=== PATIENT | female | born 1945 | race Caucasian/White ===

== ENCOUNTER 2018-07-11 22:25 | Emergency (ER) | payer OTHER ==
--- OUTSIDE RECORDS SUMMARY | 2018-07-11 22:27 | XMS REPORT | Clinical Summary ---
:1945 Author Organization [facility] Address [address] [place] [address] Care Team Providers Name Role Phone Isabelle Moe MD Primary Care Provider Allergies No Known Allergies Medications Medication Sig Dispensed Refills Start End Date Status Date carvedilol (COREG) 6.25 Take 6.25 mg 0 Active MG tablet by mouth 2 (two) times a day with meals. losartan-hydrochlorothi Take 1 tablet 0 Active azide (HYZAAR) 100-25 by mouth mg per tablet daily. gabapentin (NEURONTIN) Take 600 mg by 0 Active 600 mg tablet mouth 3 (three) times a day. atorvastatin (LIPITOR) Take 20 mg by 0 Active 20 MG tablet mouth daily. escitalopram (LEXAPRO) Take 10 mg by 0 Active 10 MG tablet mouth daily. tiZANidine (ZANAFLEX) 4 Take 4 mg by 0 Active MG tablet mouth nightly. fluticasone (FLONASE) 2 sprays by 0 Active 50 mcg/actuation nasal Each Nare spray route daily. ranitidine (ZANTAC) 150 Take 150 mg by 0 Active MG tablet mouth daily. cetirizine (ZyrTEC) 10 Take 10 mg by 0 Active MG tablet mouth daily. acetaminophen-codeine Take 1 tablet 0 Active (TYLENOL WITH CODEINE by mouth every #3) 300-30 mg per 4 (four) hours tablet as needed for moderate pain. multivitamin with Take 1 tablet 0 Active minerals tablet by mouth daily. ascorbic acid, vitamin Take 1,000 mg 0 Active C, (vitamin C) 1000 MG by mouth tablet daily. UNIFINE PENTIPS 31 USE 30 each Active gauge x 3/16" needle DIRECTED ONCE 8 DAILY teriparatide (FORTEO) Inject 0.08 mL 2.4 mL 01/24/20 20 mcg/dose - 600 (20 mcg total) 7 18 mcg/2.4 mL injection under the skin daily. pen needle, diabetic 30 Units 30 each 02/03/20 Discontinued (UNIFINE PENTIPS) 31 daily. 7 18 gauge x 3/16" needle methylPREDNISolone follow package 21 tablet 0 07/21/20 (MEDROL, ADI,) 4 mg directions 7 17 tablet Hospital, Clinic, or Other Ordered Dose Route Frequency Start Date End Date Status Facility Administered Medication methylPREDNISolone acetate 40 mg IM once 10/31/2016 Active (DEPO-MEDROL) injection 40 mgIndications: Complete tear of right rotator cuff keTOROlac (TORadol) 60 mg IM once 07/15/2017 07/17/2017 Ended injection 60 mgIndications: Spondylolisthesis at L1-L2 level, Displacement of lumbar intervertebral disc without myelopathy, Degeneration of lumbar intervertebral disc Active Problems Problem Noted Date Bilateral carotid bruits 05/12/2018 SOB (shortness of breath) 05/12/2018 Pre-op exam 05/12/2018 Essential hypertension 05/12/2018 Encounters Date Type Specialty Care Team Description 05/12/2018 Office Visit Cardiology Marleny Muñoz Bilateral carotid bruits ( Primary Dx); MD Jose Essential hypertension; SOB (shortness of breath); Pre-op exam 04/21/2018 Hospital Radiology Benjamin Paulson Encounter MD Dereje 03/31/2018 Office Visit Orthopedic Surgery Rinku Ochoa Bilateral hand pain MD Ritu (Primary Dx) 03/17/2018 Office Visit Orthopedic Surgery Benjamin Paulson Cervical radiculopathy (Primary Dx); MD Dereje Cervical spine pain; Bilateral carpal tunnel syndrome; Cubital tunnel syndrome, bilateral 02/02/2018 Refill Orthopedic Surgery Genny Coats PA-C 11/05/2017 Office Visit Orthopedic Surgery Jorge L, Spondylolisthesis at L1 -L2 level (Primary Dx); Genny Rocha Lumbosacral radiculitis ELAINE 09/16/2017 Telephone Orthopedic Surgery Meghna Acosta MA 07/29/2017 Telephone Orthopedic Surgery Karla Meghna, MA 07/15/2017 Office Visit Orthopedic Surgery Jorge L, Spondylolisthesis at L1 -L2 level (Primary Dx); Genny Rocha, Displacement of lumbar intervertebral disc without myelopathy; PA-C Degeneration of lumbar intervertebral disc after 07/10/2017 Family History Medical History Relation Name Comments Cancer Father Emphysema Mother Heart disease Mother Cancer Other siblings Relation Name Status Comments Father Mother Other siblings Alive Other siblings Social History Tobacco Use Types Packs/Day Years Used Date Former Smoker Cigarettes Quit: 2012 Smokeless Tobacco: Never Used Alcohol Use Drinks/Week oz/Week Comments Yes occasional Sex Assigned at Date Recorded Not on file Job Start Date Occupation Industry Not on file Not on file Not on file Travel History Travel Start Travel End No recent travel history available. Last Filed Vital Signs Vital Sign Reading Time Taken Blood Pressure 138/65 05/12/2018 3:02 PM CDT Pulse 80 05/12/2018 3:02 PM CDT Temperature 36.9 C (98.5 F) 03/17/2018 3:03 PM CDT Respiratory Rate - - Oxygen Saturation - - Inhaled Oxygen Concentration - - Weight 71.7 kg (158 lb) 05/12/2018 3:02 PM CDT Height 160 cm (5' 3") 05/12/2018 3:02 PM CDT Body Mass Index 27.99 05/12/2018 3:02 PM CDT Plan of Treatment Health Maintenance Due Date Last Done Comments BREAST CANCER SCREENING 1994 COLON CANCER SCREENING 1994 SHINGRIX VACCINE (1 of 2) 1994 ZOSTER VACCINE 2004 INFLUENZA VACCINE 03/18/2018 04/30/2017, 04/22/2017 PNEUMOCOCCAL POLYSACCHARIDE VACCINE AGE 65 Completed 08/18/2009 AND OVER PNEUMOCOCCAL-13 Completed 08/18/2015 Procedures Procedure Name Priority Date/Time Associated Diagnosis Comments US CAROTID DUPLEX Routine 05/12/2018 5:17 Bilateral carotid Results for this BILATERAL PM CDT bruits procedure are in SOB (shortness of the results breath) section. Pre-op exam ECG 12-LEAD Routine 05/12/2018 2:02 Essential Results for this PM CDT hypertension procedure are in the results section. XR CERVICAL SPINE 2 Routine 03/17/2018 3:01 Cervical spine pain Results for this OR 3 VW PM CDT procedure are in the results section. MRI SPINE EXTERNAL Routine 02/10/2018 12:02 Results for this STUDY AM CDT procedure are in the results section. after 07/10/2017 Results Pv carotid duplex (05/12/2018 5:17 PM CDT) Narrative Performed At [facility] Carotid Artery Ultrasound Report Pat.Name:Allyson CARDENAS.ID:[id number] .Date: 05/12/2018 Refer.MD:MARLENY MUÑOZ MD Exam Time: 4:36:00 PMStudy Type:Carotid DOBAge:1945,72YSex: FEMALE Sonogrphr: Brice Lundberg RVTPat. Stat.:[facility] 4: [id number] Echo Event ID:[id number] Order ID:[id number] Reason for Study:New onset of bilateral carotid bruit. History of hypertension and hyperlipidemia. Procedures:Colorflow, Grayscale/2D, Pulsed wave Doppler Race:White SUMMARY: PHYSICAL ASSESSMENT BloodPulsesCarotid Pressure Carotid TemporalBruit Right 150/60 +++ Left 148/60 ++0 CAROTID ARTERY SCAN RIGHT:Laminating soft plaque throughout the common carotid artery extending into the bulb and proximal internal carotid artery. Calcified plaque at the ostium of the external carotid artery. Tortuous mid and distal internal carotid artery and proximal subclavian artery with turbulent Doppler signals.Antegrade vertebral arterial flow. LEFT:Laminating soft plaque throughout the common carotid artery. Soft on ulcerative calcified plaque in the bulb followed by calcified plaque in the proximal internal carotid artery.Antegrade vertebral arterial flow. PRELIMINARY FINDINGS Non-stenotic plaque in the right bulb followed by less than 50% stenosis in the proximal internal carotid artery. Tortuous right mid and distal internal carotid artery, and proximal subclavian artery with turbulent Doppler signals. Non-stenotic plaque in the left bulb and proximal internal carotid artery. Non-stenotic plaque in the common carotid artery and ostium of the right external carotid artery. PHYSICIAN INTERPRETATION Bilateral carotid arterial Duplex exam demonstrates mild bilateral carotid artery disease with <50% stenosis in the right internal carotid artery.Tortuosity of the right internal carotid artery and right subclavian artery with no evidence of significant obstruction at the kink of the arteries. Carotid Findings:RightLeft Verteb.Flw AntegradeAntegrade Subclavian TriphasicTriphasic MEASUREMENTS: DOPPLER Right CCA Dist CCA Dist PSV51.9 cm/sCCA Dist EDV13.1 cm/s Right CCA Mid CCA Mid PSV 54.7 cm/sCCA Mid EDV 11.2 cm/s Right CCA Prox CCA Prox PSV79.7 cm/sCCA Prox EDV10.1 cm/s Right Bulb Bulb PSV54.5 cm/sBulb EDV19.2 cm/s Right ECA Prox ECA Prox PSV24.4 cm/sECA Prox EDV5.83 cm/s ICA Prox ICA Prox PSV 102 cm/Dasia Prox EDV35.1 cm/s Right Vertebral Vertebral PSV 49 cm/sVertebral EDV 11.7 cm/s Right SCA Mid SCA Mid [id number] cm/sSCA Mid EDV0 cm/s Left CCA Dist CCA Dist PSV60.2 cm/sCCA Dist EDV14.1 cm/s Left CCA Mid CCA Mid PSV 49.5 cm/sCCA Mid EDV 9.56 cm/s Left CCA Prox CCA Prox PSV70.4 cm/sCCA Prox EDV10.4 cm/s Left Bulb Bulb PSV33.1 cm/sBulb EDV10 cm/s Left ECA Prox ECA Prox PSV54.5 cm/sECA Prox EDV5.45 cm/s ICA Dist ICA Dist PSV82.5 cm/Dasia Dist EDV26.3 cm/s Left ICA Prox ICA Prox PSV75.4 cm/Dasia Prox EDV24.5 cm/s Vertebral Vertebral PSV 55 cm/s SCA Mid SCA Mid PSV 95 cm/s Left SCA Mid SCA Mid EDV0 cm/s Right ICA Mid ICA Mid PSV 79.5 cm/Dasia Mid EDV 25.7 cm/s Right ICA Dist ICA Dist PSV88.2 cm/Dasia Dist EDV22.1 cm/s Right ICA/CCA Ratio ICA/CCA PSV 1.86 Left ICA/CCA Ratio ICA/CCA PSV 1.52 Left ICA Mid ICA Mid PSV 96.5 cm/Dasia Mid EDV 31 cm/s Signed 05/17/2018 10:28 AM Marleny Muñoz MD Procedure Note Interface, Radiology Results In - 05/17/2018 10:29 AM CDT [facility] Carotid Artery Ultrasound Report Pat.Name: MICHELLE CARDENAS Pat.ID: [id number] St.Date: 05/12/2018 Refer.MD: MARLENY MUÑOZ MD Exam Time: 4:36:00 PM Study Type:Carotid Age: 10 1945,72Y Sex: FEMALE Sonogrphr: Brice Lundberg RVT Pat. Stat.:Outpatient Room: [facility] Vol: Cn , CPT - 4: 08634 Echo Event ID:[id number] Order ID: [id number] Reason for Study:New onset of bilateral carotid bruit. History of hypertension and hyperlipidemia. Procedures:Colorflow, Grayscale/2D, Pulsed wave Doppler Race: White SUMMARY: PHYSICAL ASSESSMENT Blood Pulses Carotid Pressure Carotid Temporal Bruit Right 150/60 + + + Left 148/60 + + 0 CAROTID ARTERY SCAN RIGHT: Laminating soft plaque throughout the common carotid artery extending into the bulb and proximal internal carotid artery. Calcified plaque at the ostium of the external carotid artery. Tortuous mid and distal internal carotid artery and proximal subclavian artery with turbulent Doppler signals. Antegrade vertebral arterial flow. LEFT: Laminating soft plaque throughout the common carotid artery. Soft on ulcerative calcified plaque in the bulb followed by calcified plaque in the proximal internal carotid artery. Antegrade vertebral arterial flow. PRELIMINARY FINDINGS Non-stenotic plaque in the right bulb followed by less than 50% stenosis in the proximal internal carotid artery. Tortuous right mid and distal internal carotid artery, and proximal subclavian artery with turbulent Doppler signals. Non-stenotic plaque in the left bulb and proximal internal carotid artery. Non-stenotic plaque in the common carotid artery and ostium of the right external carotid artery. PHYSICIAN INTERPRETATION Bilateral carotid arterial Duplex exam demonstrates mild bilateral carotid artery disease with <50% stenosis in the right internal carotid artery. Tortuosity of the right internal carotid artery and right subclavian artery with no evidence of significant obstruction at the kink of the arteries. Carotid Findings: Right Left Verteb.Flw Antegrade Antegrade Subclavian Triphasic Triphasic MEASUREMENTS: DOPPLER Right CCA Dist CCA Dist PSV 51.9 cm/s CCA Dist EDV 13.1 cm/s Right CCA Mid CCA Mid PSV 54.7 cm/s CCA Mid EDV 11.2 cm/s Right CCA Prox CCA Prox PSV 79.7 cm/s CCA Prox EDV 10.1 cm/s Right Bulb Bulb PSV 54.5 cm/s Bulb EDV 19.2 cm/s Right ECA Prox ECA Prox PSV 24.4 cm/s ECA Prox EDV 5.83 cm/s ICA Prox ICA Prox PSV 102 cm/s ICA Prox EDV 35.1 cm/s Right Vertebral Vertebral PSV 49 cm/s Vertebral EDV 11.7 cm/s Right SCA Mid SCA Mid PSV 112 cm/s SCA Mid EDV 0 cm/s Left CCA Dist CCA Dist PSV 60.2 cm/s CCA Dist EDV 14.1 cm/s Left CCA Mid CCA Mid PSV 49.5 cm/s CCA Mid EDV 9.56 cm/s Left CCA Prox CCA Prox PSV 70.4 cm/s CCA Prox EDV 10.4 cm/s Left Bulb Bulb PSV 33.1 cm/s Bulb EDV 10 cm/s Left ECA Prox ECA Prox PSV 54.5 cm/s ECA Prox EDV 5.45 cm/s ICA Dist ICA Dist PSV 82.5 cm/s ICA Dist EDV 26.3 cm/s Left ICA Prox ICA Prox PSV 75.4 cm/s ICA Prox EDV 24.5 cm/s Vertebral Vertebral PSV 55 cm/s SCA Mid SCA Mid PSV 95 cm/s Left SCA Mid SCA Mid EDV 0 cm/s Right ICA Mid ICA Mid PSV 79.5 cm/s ICA Mid EDV 25.7 cm/s Right ICA Dist ICA Dist PSV 88.2 cm/s ICA Dist EDV 22.1 cm/s Right ICA/CCA Ratio ICA/CCA PSV 1.86 Left ICA/CCA Ratio ICA/CCA PSV 1.52 Left ICA Mid ICA Mid PSV 96.5 cm/s ICA Mid EDV 31 cm/s Signed 05/17/2018 10:28 AM Marleny Muñoz MD Performing Organization Address [facility]osticsak Phone Number [facility] [address] [place] [address] ECG 12 lead (05/12/2018 2:02 PM CDT) Ventricular rate 76 [facility] Atrial rate 76 [facility] W[place] interval 174 [facility] QRSD interval 80 [facility] QT interval 368 [facility] QTC interval 414 [facility] P axis 1 37 [facility] QRS axis 1 70 [facility] T wave axis 32 [facility] EKG impression Normal sinus rhythm-Normal ECG-In automated comparison with ECG of 17-DEC-2016 08:00,-Minimal criteria for Inferior infarct are no longer present-T wave inversion no longer evident in Inferior leads-Electronically Signed By Nick Fernandez MD ([id number]) on H MUSE 05/13/2018 2:38:07 AM Performing Organization Address [facility] Phone Number [facility] MUSE [address] [place] [address] XR Cervical Spine 2 Or 3 Vw (03/17/2018 3:01 PM CDT) Narrative Performed At AP and lateral x-rays of the cervical spine were reviewed.A 5 mm HM RADIANT spondylolisthesis is present at C5-6.Spondylosis is noted throughout the cervical spine from C3-C7.Narrowing of the disc space at C6-7 is present with a large anterior osteophyte.Some calcification of the anterior annulus is noted at C4-5 and spondylosis is present in all of the facets. There is preservation of normal lordosis in the upper cervical spine and straightening of the cervical lordosis at C6-7. Performing Organization Address City/[facility]/Zipcode Phone Number [facility] [address] [place] [address] MRI Spine External Study (02/10/2018 12:02 AM CDT) Narrative Performed At This exam was not acquired at a [facility] facility and has not been RADIANT interpreted by a [facility] Provider.The exam was imported into our imaging system for comparisons purposes. Performing Organization Address [facility] Phone Number [facility] [address] [place] [address] after 07/10/2017 Insurance Payer Benefit Plan / Group Subscriber ID Type Phone Address HU[employer]NA MEDICARE HU[employer]NA MEDICARE PPO/PFFS/[facility] xxxxxxxxx PPO Advance Directives Patient has advance care planning documents on file. For more information, please contact:Gilmer Coburn[address] [place] [address]
--- OUTSIDE RECORDS SUMMARY | 2018-07-11 22:27 | XMS REPORT | Summary of Care ---
:1945 Author Name NATY ARRIAGA Address Unavailable Unavailable , Care Team Providers Name Role Phone NATY ARRIAGA Unavailable Unavailable MARNI DOLL MD Unavailable Unavailable Unavailable Unavailable Unavailable Functional Status Name Dates Details Functional status health issues are not documented Status: Name Dates Details Cognitive status health issues are not documented Status: Problems Name Dates Details Closed nondisplaced fracture of right patella, unspecified fracture morphology , initial encounter (822.0, S82.001A) Status: Active Primary localized osteoarthritis of right knee (715.16, M17.11) Status: Active 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, initial encounter ( 996.66, T84.51XA) Status: Active Right shoulder tendonitis (726.10, M75.81) Status: Active Hip strain, right, initial encounter (843.9, S76.011A) Status: Active Hypertension (401.9, I10) Status: Active Hyperlipidemia (272.4, E78.5) Status: Active Degenerative disc disease (722.6) Status: Active GERD (gastroesophageal reflux disease) (530.81, K21.9) Status: Active Primary localized osteoarthritis of left knee (715.16, M17.12) Status: Active Medications Name Dates Details Coreg TABS Refills: 0 Active Cozaar TABS Refills: 0 Active Gabapentin TABS Refills: 0 Active Zanaflex CAPS Refills: 0 Active Lipitor TABS Refills: 0 Active Acetaminophen-Codeine #3 300-30 MG Oral Tablet TAKE 1 TO 2 TABLETS EVERY 4 TO 6 HOURS NEEDED FOR PAIN. Quantity: 60 Refills: 0 NATY ARRIAGA Start : 27-May-2018 Active Allergies and Adverse Reactions Name Dates Details No Known Drug Allergies (Allergy) Status: Active Past Medical History Name Dates Details History of essential hypertension (V12.59, Z86.79) Status: Resolved History of low back pain (V13.59, Z87.39) Status: Resolved History of Trochanteric bursitis of right hip (726.5, M70.61) Status: Resolved Procedures Procedure Dates Details GI Stomach UGI w/KUB air cont and Esophagus Ba swallow Date: 05-Jun-2018 51091 History of Cholecystectomy Completed History of Sinus Surgery Completed History of Appendectomy Completed Immunization Name Dates Details Immunizations not documented Family History Name Dates Details No pertinent family history (V49.89, Z78.9) Comments: Other Status: Active Social History Name Dates Details Unknown if ever smoked Vital Signs Date Test Result Details [id number] BP Systolic 129 mm[Hg] Status: BP Diastolic 75 mm[Hg] Status: Height 63.5 in Status: Weight 159 lb Status: Body Mass Index Calculated 27.72 kg/m2 Status: Body Surface Area Calculated 1.76 m2 Status: Temperature 98.3 f Status: Heart Rate 90 /min Status: Results Date Description Value Details [id number] [U] XRAY KNEE 3 VWS LEFT 26424 XR KNEE 3 VWS LEFT Images acquired, not reported on this accession number. Plan of Care Name Dates Details Planned Observations Planned Goals not documented Planned Encounters Appointment; NATY MARSHALL P.A. On: 30-Jul-2018 13:00 Interventions Provided Labs/Procedures/Imaging[U] XRAY KNEE 3 VWS LEFT 34400; Done: 02 Jul 2018PlanCompleted at Today's Appointment: Dressing Changes Patient Education/ Instructions: Patient/Parent to call or return with any abnormal changes NSAIDS and ICE application for continued pain and swelling. Orders: Continue therapy and pain meds as needed. Follow Up: Return to the clinic in 4 weeks or as needed. Xray's reviewed with Physician Instructions Name Dates Details Instructions not documented Encounters Appointment; MARGARITA OLIVEIRA M.D. On: 19-Sep-2016 14:00 Encounter Diagnosis: Problem not documented Appointment; NATY MARSHALL P.A. On: 17-Oct-2016 15:30 Encounter Diagnosis: Problem not documented Appointment; MARGARITA OLIVEIRA M.D. On: 13-Nov-2016 16:15 Encounter Diagnosis: Problem not documented Appointment; NATY MARSHALL P.A. On: 28-Nov-2016 13:15 Encounter Diagnosis: Problem not documented Appointment; NATY MARSHALL P.A. On: 18-Dec-2016 14:15 Encounter Diagnosis: Problem not documented Appointment; MARGARITA OLIVEIRA M.D. On: 12-Feb-2017 10:00 Encounter Diagnosis: Problem not documented Appointment; MARGARITA OLIVEIRA M.D. On: 14-Feb-2017 10:30 Encounter Diagnosis: Problem not documented Appointment; MARGARITA OLIVEIRA M.D. On: 26-Feb-2017 9:00 Encounter Diagnosis: Problem not documented Appointment; MARGARITA OLIVEIRA M.D. On: 20-Mar-2017 14:30 Encounter Diagnosis: Problem not documented Appointment; MARGARITA OLIVEIRA M.D. On: 28-Apr-2017 8:00 Encounter Diagnosis: Problem not documented Appointment; NATY MARSHALL P.A. On: 02-May-2017 10:00 Encounter Diagnosis: Problem not documented Appointment; NATY MARSHALL P.A. On: 09-May-2017 10:45 Encounter Diagnosis: Problem not documented Appointment; NATY MARSHALL P.A. On: 23-May-2017 10:45 Encounter Diagnosis: Problem not documented Appointment; ANGELICA CEVALLOS M.D. On: 27-May-2017 11:15 Encounter Diagnosis: Problem not documented Appointment; MARGARITA OLIVEIRA M.D. On: 04-Jun-2017 11:00 Encounter Diagnosis: Problem not documented Appointment; MARGARITA OLIVEIRA M.D. On: 18-Jul-2017 11:15 Encounter Diagnosis: Problem not documented Appointment; MARGARITA OLIVEIRA M.D. On: 12-Sep-2017 10:15 Encounter Diagnosis: Problem not documented Appointment; MARGARITA OLIVEIRA M.D. On: 17-Sep-2017 13:30 Encounter Diagnosis: Problem not documented Appointment; MARGARITA OLIVEIRA M.D. On: 17-Apr-2018 11:15 Encounter Diagnosis: Problem not documented Appointment; NATY MARSHALL P.A. On: 22-Apr-2018 13:15 Encounter Diagnosis: Problem not documented Appointment; NATY MARSHALL P.A. On: 27-May-2018 13:15 Encounter Diagnosis: Problem not documented Appointment; PAUL CHOWDARY M.D. On: 05-Jun-2018 11:00 Encounter Diagnosis: Problem not documented Appointment; MARGARITA OLIVEIRA M.D. On: 22-Jun-2018 8:00 Encounter Diagnosis: Problem not documented Appointment; NATY MARSHALL P.A. On: 02-Jul-2018 13:30 Encounter Diagnosis: Problem not documented
--- OUTSIDE RECORDS SUMMARY | 2018-07-11 22:27 | XMS REPORT ---
:1945 [facility] Address [address] [place] [id number] Care Team Providers Name Role Phone Unavailable Unavailable Unavailable Problems This patient has no known problems. Allergies, Adverse Reactions, Alerts This patient has no known allergies or adverse reactions. Medications This patient has no known medications. Results Test Description Test Time Test Comments Text Results Atomic Results Result Comments CR - XRAY CONSULTATION 2018-02-10 13:44:01 PAIN MANAGEMENT CONSULTATION PAIN MANAGEMENT HISTORY AND PHYSICALCHIEF COMPLAINT: Neck bilateral shoulder and arm pain with numbnessHISTORY OF PRESENT ILLNESS: The patient is 72-year-old retired female with a history of chronic neck pain. She has been seen in treated in both [facility] and [facility]. She has had physical therapy and steroid injections. The last steroid injection was approximally 2 years ago and significantly improved her pain until 2 months ago. Her pain is now affecting her activities of daily living and lifestyle. She describes her arm pain and numbness is worse than her neck pain. She frequently has numbness and tingling in her arms and hands. She describes as a burning electrical pain aggravated by forward neck flexion, such as with reading and looking down. Changes in position and ice partially relieve her pain. She does have popping and cracking in her neck with subjective weakness in both of her arms and hands. She has a sleep disturbance as a result of her pain. She has no bowel bladder incontinence, fever or chills.Past medical history includes hypertension, elevated cholesterol, gastroesophageal reflux diseaseIMAGING: Multilevel disc degeneration, spondylosis and disc osteophyte complexes resulting in cervical cord compression at C3-4, C4-5 and C5-6 levels. There is also multilevel facetal arthrosis with synovitis C4-5, C5-6 and C6-7 levels. Multilevel foraminal stenosis.PHYSICAL EXAMINATION : Female in no acute distress. Gait is intact. Cervical flexion limited 25 degrees at usual pain 15 degrees. Cervical extension limited by pain to 15 degrees. Lateral rotation limited by pain to 75 degrees to the right and 50 degrees to the left with usual pain at 65 degrees the right and 45 degrees to the left. Right lateral flexion limited to 10 degrees and left lateral flexion limited 10 degrees with usual pain at end range of motion. The patient has moderate to severe pain on palpation over both C4-5 C5-6 and C6-7 facets with associated muscle spasm. No significant pain involving upper cervical facets or suboccipital region/greater occipital nerve. Spurlings test is positive bilaterally. Sensation is intact to light touch C4-T1 dermatomes. Strength is 5/5 throughout both upper extremities. Biceps reflexes are 2+ symmetric. Triceps reflexes are 2+ and symmetric. Brachial radialis reflexes are 2+ and symmetric.IMPRESSION: 1. Cervical disc degeneration, cervical spondylosis, cervical stenosis, cervical cord compression.2. The patient s primary symptoms are related to cervical cord compression and cervical spondylosis/facet arthropathy. I will proceed with bilateral C5-6 trans foraminal epidural steroid injection to cover C3-4, C4-5 and C5-6 levels. The patient has incomplete relief I will proceed with diagnostic/therapeutic bilateral C4-5 through C6-7 facet blocks. Patient will be reevaluated.D
[2018-07-11] MEDS ORDERED: NA CHLORIDE 0.9% 1,000 ML ONE (22:55)
[2018-07-11 23:05] LABS: Protime INR 1.03
[2018-07-11 23:06] LABS: Absolute Lymphocytes (CBC) 0.9 K/uL (0.7-4.9); Absolute Monocytes 0.5 K/uL (0.1-1.3); Absolute Neutrophil 2.3 K/uL (1.8-8.0); Basophils % 4.7 % (0-1.3); Eosinophils % 10.2 % (0-4.4); Lymphocytes % 20.9 % (15.3-44.8); MCH 31.2 pg (27.0-35.0); MCV 97.9 fL (80-100); MPV 7.7 fL (7.6-11.3); Monocytes % 10.9 % (3.3-12.3); RBC Red Blood Cell Count 1.69 M/uL (3.86-4.86)
[2018-07-11 23:18] LABS: Hematocrit 16.5 % (36.0-45.0)
[2018-07-11 23:31] LABS: ALT/SGPT 13 U/L (12-78); AST/SGOT 17 U/L (15-37); Albumin 2.6 g/dL (3.4-5.0); Alkaline Phosphatase 69 U/L (45-117); BUN Blood Urea Nitrogen 20 mg/dL (7-18); Bicarbonate 27 mmol/L (21-32); Bilirubin Direct < 0.1 mg/dL (0-0.2); Bilirubin Total 0.2 mg/dL (0.2-1.0); Glucose Level 113 mg/dL (74-106); Magnesium 1.8 mg/dL (1.8-2.4); NT PRO-BNP 565 pg/mL (<125); Potassium 3.3 mmol/L (3.5-5.1); Protein, Total 5.5 g/dL (6.4-8.2); Sodium Level 140 mmol/L (136-145); Troponin (Emerg Dept Use Only) < 0.02 ng/mL (0.0-0.045)
--- NOTE | 2018-07-12 00:31 | EDPHYS ---
Physician Documentation [facility] Name: Radha Cardenas Age: 73 yrs Sex: Female : 1945 Arrival Date: 07/11/2018 Time: 22:29 Bed 2 Private MD: ED Physician Shekhar Beck HPI: 07/11 22:34 This 73 yrs old Female presents to ER via EMS with complaints of Blood ma2 Pressure Problem. 22:34 Onset: The symptoms/episode began/occurred suddenly, 1 day(s) ago. Onset: The ma2 symptoms/episode began/occurred suddenly, gradually, 1 day(s) ago. Associated signs and symptoms: Pertinent negatives: nausea and vomiting, chest pain. Severity of symptoms: At their worst the symptoms were moderate in the emergency department the symptoms have resolved have improved. started on labetelol for HTN was found to be hypotensive to 60/30 1 hour ago improved here to 105/60 no symptoms right now . Historical: - Allergies: 22:37 No Known Allergies; lp1 - Home Meds: 22:37 Coreg Oral [Active]; losartan oral oral [Active]; gabapentin oral oral [Active]; Zantac lp1 Oral [Active]; Claritin Oral [Active]; Lexapro Oral [Active]; Tylenol #3 Oral [Active]; Labetalol Oral [Active]; - PMHx: 22:37 Hypertension; Depression; Hyperlipidemia; Anemia; Osteoporosis; GERD; lp1 - PSHx: 22:37 L Knee replacement- 06/20/18; hip surgery; Appendectomy; Cholecystectomy; Knee surgery; lp1 - Immunization history:: Adult Immunizations up to date. - Social history:: Patient/guardian denies using alcohol, street drugs, The patient lives with family, Smoking status: Patient uses tobacco products, denies chronic smoking, but will smoke occasionally. - Family history:: not pertinent. - Ebola Screening: : No symptoms or risks identified at this time. ROS: 22:34 Constitutional: Negative for fever, chills, and weight loss, Cardiovascular: Negative ma2 for chest pain, palpitations, and edema, Respiratory: Negative for shortness of breath, cough, wheezing, and pleuritic chest pain, Abdomen/GI: Negative for abdominal pain, nausea, diarrhea, and constipation, : Negative for injury, bleeding, discharge, and swelling, Skin: Negative for injury, rash, and discoloration, Endocrine: Negative for neck swelling, polydipsia, polyuria, polyphagia, and marked weight changes. 22:34 Cardiovascular: Positive for low bp, Negative for edema, palpitations. 22:34 Cardiovascular: Positive for Negative for 22:34 All other systems are negative. Exam: 22:34 Constitutional: This is a well developed, well nourished patient who is awake, alert, ma2 and in no acute distress. Head/Face: Normocephalic, atraumatic. Chest/axilla: Normal chest wall appearance and motion. Nontender with no deformity. No lesions are appreciated. Cardiovascular: Regular rate and rhythm with a normal S1 and S2. No gallops, murmurs, or rubs. Normal PMI, no JVD. No pulse deficits. Respiratory: Lungs have equal breath sounds bilaterally, clear to auscultation and percussion. No rales, rhonchi or wheezes noted. No increased work of breathing, no retractions or nasal flaring. Abdomen/GI: Soft, non-tender, with normal bowel sounds. No distension or tympany. No guarding or rebound. No evidence of tenderness throughout. MS/ Extremity: Pulses equal, no cyanosis. Neurovascular intact. Full, normal range of motion. Neuro: Awake and alert, GCS 15, oriented to person, place, time, and situation. Cranial nerves II-XII grossly intact. Motor strength 5/5 in all extremities. Sensory grossly intact. Cerebellar exam normal. Normal gait. Vital Signs: 22:33 BP 103 / 48; Pulse 68; Resp 15; Temp 98(O); Pulse Ox 97% on R/A; Weight 71.67 kg; lp1 Height 5 ft. 4 in. (162.56 cm); Pain 3/10; 22:53 BP 91 / 52; Pulse 59; Resp 16; Pulse Ox 95% on R/A; lp1 23:15 BP 103 / 46; Pulse 62; Resp 16; Pulse Ox 96% on R/A; lp1 23:40 BP 109 / 46; Pulse 62; Resp 13; Pulse Ox 96% on R/A; lp1 07/12 00:00 BP 92 / 70; Pulse 69; Resp 16; Pulse Ox 99% on R/A; lp1 01:00 BP 108 / 41; Pulse 63; Resp 13; Pulse Ox 95% on R/A; lp1 01:40 BP 99 / 41; Pulse 60; Resp 14; Pulse Ox 95% on R/A; lp1 02:00 lp1 03:00 BP 119 / 50; Pulse 61; Resp 14; Temp 97.2(TE); Pulse Ox 96% on R/A; lp1 07/11 22:33 Body Mass Index 27.12 (71.67 kg, 162.56 cm) lp1 02:00 See Blood Transfusion flowsheet for further vitals lp1 MDM: 07/11 22:34 Differential Diagnosis sepsis, bb overdose, unlikely sepsis or sirs. ma2 22:38 Patient medically screened. ma2 07/12 00:24 Data reviewed: vital signs, nurses notes, lab test result(s), radiologic studies, and ma2 as a result, I will. Counseling: I had a detailed discussion with the patient and/or guardian regarding: the historical points, exam findings, and any diagnostic results supporting the discharge/admit diagnosis, the presence of at least one elevated blood pressure reading (>120/80) during this emergency department visit, radiology results, the need for outpatient follow up, the need to transfer to another facility. ED course: hb is 5, will transfuse pRBC, has had melena x 3 days.. hemodynamically stale now.. will initiate transfer for higher level of care as no GI available in our hospital . 07/11 22:33 Order name: Basic Metabolic Panel; Complete Time: 23:41 [facility] 07/11 22:33 Order name: CBC with Diff; Complete Time: 23:41 [facility] 07/11 22:33 Order name: LFT's; Complete Time: 23:41 wi2 07/11 22:33 Order name: Magnesium; Complete Time: 23:41 [facility] 07/11 22:33 Order name: NT PRO-BNP; Complete Time: 23:41 [facility] 07/11 22:33 Order name: PT-INR; Complete Time: 23:41 [facility] 07/11 22:33 Order name: Troponin (emerg Dept Use Only); Complete Time: 23:41 [facility] 07/11 22:33 Order name: XRAY Chest (1 view) [facility] 07/11 23:29 Order name: Type And Screen [facility] 07/11 23:29 Order name: Type and Screen [facility] 07/12 00:53 Order name: Packed RBC Leukored -1 ED[facility] 07/12 01:06 Order name: ABO/RH no charge; Complete Time: 01:27 [facility] 07/12 02:43 Order name: Urine Dipstick--Ancillary (enter results) lp1 07/11 22:33 Order name: EKG; Complete Time: 22:34 ma2 07/11 22:33 Order name: Cardiac monitoring; Complete Time: 22:44 ma2 07/11 22:33 Order name: EKG - Nurse/Tech; Complete Time: 22:44 ma2 07/11 22:33 Order name: IV Saline Lock; Complete Time: 22:44 ma2 07/11 22:33 Order name: Labs collected and sent; Complete Time: 22:45 ma2 07/11 22:33 Order name: O2 Per Protocol; Complete Time: 22:45 ma2 07/11 22:33 Order name: O2 Sat Monitoring; Complete Time: 22:45 ma2 07/11 22:37 Order name: Urine Dipstick-Ancillary (obtain specimen); Complete Time: 02:43 ma2 Administered Medications: 07/11 22:53 Drug: NS 0.9% 1000 ml Route: IV; Rate: 1 bolus; Site: right forearm; lp1 07/12 00:20 Follow up: IV Status: Completed infusion; IV Intake: 1000ml lp1 00:46 Drug: Pantoprazole 8 mg/hr Route: IV; Rate: 25 ml/hr; Site: right forearm; lp1 03:23 Follow up: IV Status: Infusion continued upon transfer lp1 00:46 Drug: Pantoprazole 40 mg Route: IVP; Site: right forearm; lp1 01:47 Follow up: Response: No adverse reaction lp1 Disposition: 07/12/18 00:30 Transfer ordered to [facility]. Diagnosis is Acute gastric ulcer with hemorrhage. - Reason for transfer: Higher level of care. - Accepting physician is [facility]. - Condition is Critical. - Problem is new. - Symptoms have improved. Signatures: Dispatcher [employer] EDLA Janeen Hernandez RN RN lp1 Shekhar Beck MD MD ma2 Corrections: (The following items were deleted from the chart) :58 01:58 Abnormal. ma2 ma2 03:24 00:30 07/12/2018 00:30 Transfer ordered to [facility]. lp1 Diagnosis is Acute gastric ulcer with hemorrhage. Reason for transfer: Higher level of care. Accepting physician is [facility] center. Condition is Critical. Problem is new. Symptoms have improved. ma2
--- NOTE | 2018-07-12 00:31 | ER ---
Nurse's Notes [facility] Name: Radha Cardenas Age: 73 yrs Sex: Female : 1945 Arrival Date: 07/11/2018 Time: 22:29 Bed 2 Private MD: Diagnosis: Acute gastric ulcer with hemorrhage Presentation: 07/11 22:29 Presenting complaint: EMS states: Called for patient who passed out at home, no trauma, lp1 caught by granddaughter; States starting Labetalol home med tonight after discontinuing med on 06/20/18 for L knee replacement; BP of 68/32 per EMS, improved after 400ml of NS. Transition of care: patient was not received from another setting of care. Onset of symptoms was July 11, 2018. Risk Assessment: Do you want to hurt yourself or someone else? Patient reports no desire to harm self or others. Initial Sepsis Screen: Does the patient meet any 2 criteria? No. Patient's initial sepsis screen is negative. Does the patient have a suspected source of infection? No. Patient's initial sepsis screen is negative. Care prior to arrival: IV initiated. 18 GA, in the right forearm, Glucose check: 112 Oxygen administered. via nasal cannula. 22:29 Method Of Arrival: EMS: [facility] lp1 22:29 Acuity: SLOAN 3 lp1 Historical: - Allergies: 22:37 No Known Allergies; lp1 - Home Meds: 22:37 Coreg Oral [Active]; losartan oral oral [Active]; gabapentin oral oral [Active]; Zantac lp1 Oral [Active]; Claritin Oral [Active]; Lexapro Oral [Active]; Tylenol #3 Oral [Active]; Labetalol Oral [Active]; - PMHx: 22:37 Hypertension; Depression; Hyperlipidemia; Anemia; Osteoporosis; GERD; lp1 - PSHx: 22:37 L Knee replacement- 06/20/18; hip surgery; Appendectomy; Cholecystectomy; Knee surgery; lp1 - Immunization history:: Adult Immunizations up to date. - Social history:: Patient/guardian denies using alcohol, street drugs, The patient lives with family, Smoking status: Patient uses tobacco products, denies chronic smoking, but will smoke occasionally. - Family history:: not pertinent. - Ebola Screening: : No symptoms or risks identified at this time. Screenin:37 Abuse screen: Denies threats or abuse. Denies injuries from another. Nutritional lp1 screening: No deficits noted. Tuberculosis screening: No symptoms or risk factors identified. Fall Risk Total Law Fall Scale indicates High Risk Score (45 or more points). Fall prevention measures have been instituted. Side Rails Up X 2 Family Present and informed to notify staff if the need to leave the bedside As available patient and family educated on Fall Prevention Program and Strategies. Assessment: 22:54 General: Appears in no apparent distress. Behavior is appropriate for age. Pain: lp1 Complains of pain in left knee Pain currently is 4 out of 10 on a pain scale. Quality of pain is described as aching. Neuro: Level of Consciousness is awake, alert, obeys commands, Oriented to person, place, time, situation, Speech is normal, Pupils are PERRLA, Intact. Cardiovascular: Capillary refill < 3 seconds in bilateral fingers toes Patient's skin is warm and dry. Rhythm is sinus rhythm. Respiratory: Respiratory effort is even, unlabored, Respiratory pattern is regular, Breath sounds are clear bilaterally. GI: Abdomen is non-distended. : No signs and/or symptoms were reported regarding the genitourinary system. EENT: No signs and/or symptoms were reported regarding the EENT system. Derm: Skin is dry, Skin is pale, Steri-strips in place to left knee, intact. Musculoskeletal: Circulation, motion, and sensation intact. 23:53 Reassessment: Provider at bedside discussing care with patient and daughter. lp1 07/12 00:30 Reassessment: Patient appears in no apparent distress at this time. Patient and/or lp1 family updated on plan of care and expected duration. Pain level reassessed. Patient resting, eyes closed, respirations unlabored. 01:30 Reassessment: Assisted patient to bedpan at this time; aware of pending blood lp1 transfusion, daughter at bedside. 02:00 Reassessment: 1st unit of PRBC infusing at this time. lp1 02:32 Reassessment: report called to SALVATORE Randolph at [facility] for patient transfer lp1 to [address] [place] [address] 22. 03:22 Reassessment: [facility] at bedside for transfer; Unit of PRBC completed. lp1 Vital Signs: 07/11 22:33 BP 103 / 48; Pulse 68; Resp 15; Temp 98(O); Pulse Ox 97% on R/A; Weight 71.67 kg; lp1 Height 5 ft. 4 in. (162.56 cm); Pain 3/10; 22:53 BP 91 / 52; Pulse 59; Resp 16; Pulse Ox 95% on R/A; lp1 23:15 BP 103 / 46; Pulse 62; Resp 16; Pulse Ox 96% on R/A; lp1 23:40 BP 109 / 46; Pulse 62; Resp 13; Pulse Ox 96% on R/A; lp1 07/12 00:00 BP 92 / 70; Pulse 69; Resp 16; Pulse Ox 99% on R/A; lp1 01:00 BP 108 / 41; Pulse 63; Resp 13; Pulse Ox 95% on R/A; lp1 01:40 BP 99 / 41; Pulse 60; Resp 14; Pulse Ox 95% on R/A; lp1 02:00 lp1 03:00 BP 119 / 50; Pulse 61; Resp 14; Temp 97.2(TE); Pulse Ox 96% on R/A; lp1 07/11 22:33 Body Mass Index 27.12 (71.67 kg, 162.56 cm) lp1 02:00 See Blood Transfusion flowsheet for further vitals lp1 ED Course: 07/11 22:29 Patient arrived in ED. tl2 22:29 Janeen Hernandez, RN is Primary Nurse. lp1 22:29 Maintain EMS IV. Dressing intact. Good blood return noted. Site clean \T\ dry. Gauge \T\ tl 2 site: 18 G R FA. 22:33 Shekhar Beck MD is Attending Physician. ma2 22:33 Triage completed. lp1 22:33 Arm band placed on left wrist. lp1 22:37 EKG done, by ED staff, reviewed by Shekhar Beck MD. lp1 22:37 Patient has correct armband on for positive identification. Bed in low position. Call lp1 light in reach. Side rails up X2. tie in machine operator on. Pulse ox on. NIBP on. 22:51 XRAY Chest (1 view) In Process Unspecified. EDMS 23:12 Basic Metabolic Panel Sent. ds4 23:12 CBC with Diff Sent. ds4 23:12 Troponin (emerg Dept Use Only) Sent. ds4 23:12 LFT's Sent. ds4 23:12 Magnesium Sent. ds4 23:12 NT PRO-BNP Sent. ds4 23:12 PT-INR Sent. ds4 23:39 Type And Screen Sent. ds4 23:39 Type and Screen Sent. ds4 23:39 T\T\S collected, blood band applied to patient. ds4 07/12 01:50 No provider procedures requiring assistance completed. lp1 03:24 Patient transferred, IV remains in place. lp1 Administered Medications: 07/11 22:53 Drug: NS 0.9% 1000 ml Route: IV; Rate: 1 bolus; Site: right forearm; lp1 07/12 00:20 Follow up: IV Status: Completed infusion; IV Intake: 1000ml lp1 00:46 Drug: Pantoprazole 8 mg/hr Route: IV; Rate: 25 ml/hr; Site: right forearm; lp1 03:23 Follow up: IV Status: Infusion continued upon transfer lp1 00:46 Drug: Pantoprazole 40 mg Route: IVP; Site: right forearm; lp1 01:47 Follow up: Response: No adverse reaction lp1 Intake: 07/11 22:45 IV: 1000ml (IV Fluid); Total: 1000ml. lp1 07/12 00:20 IV: 1000ml; Total: 2000ml. lp1 03:23 IV: 270ml (Blood Products); Total: 2270ml. lp1 Outcome: 00:30 ER care complete, transfer ordered by . ma2 01:30 Instructed on the need for transfer. lp1 01:50 Condition: stable lp1 03:24 Transferred by ground EMS to [facility], Transfer form completed. lp1 X-rays sent w/ patient. 03:24 Patient left the ED. lp1 Signatures: Dispatcher [employer] EDMS Janeen Hernandez RN RN lp1 Efrain Crowder ds4 Sarah Rocha RN RN tl2 Shekhar Beck MD MD ma2
[2018-07-12] MEDS ORDERED: PANTOPRAZOLE 40 MG INJ ONE (00:39)
[2018-07-12] MEDS ORDERED: NA CHLORIDE 0.9% 250 ML ONE (00:39)
[2018-07-12] MEDS ORDERED: NA CHLORIDE 0.9% 500 ML ONE (01:48)
[2018-07-12 03:44] LABS: Urine Blood NEGATIVE (NEG); Urine Glucose NEGATIVE (NEG); Urine Protein NEGATIVE (NEG); Urine Specific Gravity 1.015 (1.005-1.030)
[2018-07-12 03:45] VITALS: BP 119/50; TEMP 97.2; O2SAT 96
--- NOTE | 2018-07-12 06:08 | EKG ---
Test Date: 2018-07-11 Test Time: 22:33:28 [employer]: YUE MEASUREMENT RESULTS: Intervals: Rate: 63 ND: 198 QRSD: 88 QT: 452 QTc: 462 [place]: P: 12 ND: 198 QRS: 31 T: 23 INTERPRETIVE STATEMENTS: Normal sinus rhythm Normal ECG Compared to ECG 05/24/2013 11:45:29 no significant change from previous ECG Electronically Signed On 07-12-18 06:08:13 CLARIFIER OPERATOR by Kadeem Arriaga
--- NOTE | 2018-07-12 14:04 | RAD REPORT ---
EXAM DESCRIPTION: RAD - Chest Single View - 07/11/2018 10:54 pm CLINICAL HISTORY: COUGH Chest pain. COMPARISON: Chest Pa And Lat (2 Views) dated 06/11/2018; CHEST SINGLE VIEW dated 04/10/2011 FINDINGS: Portable technique limits examination quality. The lungs are grossly clear. Prominent hiatal hernia is present. The heart is upper limit of normal i n size. No displaced fractures. IMPRESSION: No acute intrathoracic process suspected.
== END 2018-07-12 03:24 | disposition short-term general hospital (02) ==
LOC: ER 22:25
PROC: 30243N1 Transfusion of Nonautologous Red Blood Cells into Central Vein, Percutaneous Approach (ICD-10-PCS; principal; 2018-07-11)
DX: K25.0 Acute gastric ulcer with hemorrhage (principal); Z72.0 Tobacco use; I10 Essential (primary) hypertension; D64.9 Anemia, unspecified; E78.5 Hyperlipidemia, unspecified; K21.9 Gastro-esophageal reflux disease without esophagitis; M81.0 Age-related osteoporosis without current pathological fracture; F32.9 Major depressive disorder, single episode, unspecified; Z79.899 Other long term (current) drug therapy
CPT/HCPCS: 36415; 36430; 71045; 80048; 80076; 81003; 83735; 83880; 84484; 85025; 85610; 86850; 86900; 86901; 93005; 96361; 96365; 96366; 99285; C9113; J7030; P9016

== ENCOUNTER 2023-02-05 09:50 | Emergency (ER) | payer OTHER ==
--- OUTSIDE RECORDS SUMMARY | 2023-02-05 10:03 | XMS REPORT | Continuity of Care Document ---
:1945 Author Organization [facility] t Address [address] [facility] [place] [address] Care Team Providers Name Role Phone Asked, No Pcp Primary Care Physician Unavailable Yoon Calloway Attending Clinician Unavailable [id number] Attending Clinician Unavailable Emily_T Attending Clinician Unavailable DEVYN Attending Clinician Unavailable Michael Attending Clinician Unavailable ANGELICA CEVALLOS M.D. Attending Clinician Unavailable CHAPARRITA DENT M.D. Attending Clinician Unavailable NATY MARSHALL P.A. Attending Clinician Unavailable NEVIN GAYLE Attending Clinician Unavailable MARGARITA OLIVEIRA M.D. Attending Clinician Unavailable PAUL CHOWDARY M.D. Attending Clinician Unavailable [id number] Admitting Clinician Unavailable Kvng-Willis_T Admitting Clinician Unavailable TY_[email or web address] Admitting Clinician Unavailable Milton_Ana Admitting Clinician Unavailable NEVIN GAYLE Admitting Clinician Unavailable Payers Payer Name Policy Type Policy Number Effective Date Expiration Date S ource [facility] [id number] [facility] [id number] (MEDICARE REPLACEMENT/ADVANT AGE - PPO) [facility] HealthSelect 1 [id number] 2021 Common TRS/ERS MCR PPO 00:00:00 Spirit - [facility] [employer] (MEDICARE [id number] REPLACEMENT/ADVANT AGE - PPO) Problems Condition Condition Condition Status Onset Resolution Last Treating Co mments Source Name Details Category Date Date Treatment Clinician Date Lumbago Lumbago Problem Active 2020-08 [place] with with 0-20 Family sciatica Sciatica 00:00: Practi c 00 e Chronic Chronic Problem Active [facility] kidney Kidney 2-05 Family disease Disease 00:00: Practic due to Due to 00 e hypertensi Hypertensi on on History of History of Problem Active [facility] deep vein Deep Vein 1-24 Fami ly thrombosis Thrombosis 00:00: Pr actic 00 e Small Small Disease Active [facility] bowel bowel 9-11 st obstructio obstructio 00:00: Ho spita n n 00 l Anemia Anemia Disease Active 2017-[address] [facility] Hiatal Hiatal Problem Active 2017-08 [facility] hernia Hernia 0-09 Family 00:00: Practic 00 e Bilateral Bilateral Disease Active [facility] carotid carotid 925 st bruits bruits 00:00: Hospita 00 l SOB SOB Disease Active [facility] (shortness (shortness 9-25 st of breath) of breath) 00:00: Ho spita 00 l Pre-op Pre-op Disease Active [facility] exam exam 9-25 st 00:00: Hospita 00 l Essential Essential Disease Active [facility] hypertensi hypertensi 9-25 st on on 00:00: Hospita 00 l Osteoporos Osteoporos Problem Active [facility] ill[facility] is is 9-05 Family 00:00: Practic 00 e [id number] Degenerati Problem Com mon ve disc Spirit disease at - [facility] L5-S1 St level [facility] [id number] Current Problem Common mild Spirit episode of - [facility] major [facility] depressive [facility] disorder Medical without Center prior episode [id number] Gastroesop Problem Co mmon hageal Spirit reflux - CHI disease St without [facility] esophagiti Medica l Center [id number] Age-relate Problem Com mon d Spirit osteoporos - [facility]I is without St current [facility] pathologic Medica l al Center fracture [id number] 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 [facility] [id number] Primary Problem Common insomnia [facility] [id number] AV block, Problem Com mon 1st degree [facility] [id number] Syncope Problem Commo n and [facility] collapse [facility] [id number] Irregularl Problem Co mmon y [facility] irregular - [facility] pulse [facility] [id number] Pain in Problem Comm on [id number] left [facility] shoulder [facility] [id number] Other Problem Common chronic [facility] pain [facility] [id number] Dizzy Problem Common spells [facility] [id number] BMI Problem Common 25.0-25.9, [facility] adult [facility] [id number] Neck pain Problem Comm on [facility] [id number] Generalize Problem Co mmon d [facility] abdominal - [facility] pain [facility] [id number] Diarrhea, Problem Comm on unspecifie Spirit d type [facility] Hypertensi Hypertensi Problem C ommon on on [facility] [id number] Preoperati Problem Com mon ve [facility] clearance [facility] [id number] Encounter Problem Com mon for Spirit pre-operat [facility] ines [facility] [id number] Iron Problem Common deficiency Spirit anemia, - CHI unspecifie [facility] iron [facility] deficiency Medica l anemia Center type Hyperlipid Hyperlipid Problem C ommon emia emia [facility] [id number] Exposure Problem Comm on to the flu [facility] History of History of Problem Resolve [facility] essential essential d Phys ici hypertensi hypertensi an s on on History of History of Problem Resolve UT low back low back d Physic i pain pain ans History of History of Problem Resolve UT Trochanter Trochanter d Ph ysici ic ic ans bursitis bursitis of right of right hip hip Closed Closed Problem Active UT nondisplac nondisplac Ph ysici ed ed ans fracture fracture of right of right patella, patella, unspecifie unspecifie d fracture d fracture morphology morphology , initial , initial encounter encounter Primary Primary Problem Active UT localized localized Phys ici osteoarthr osteoarthr an s itis of itis of right knee right knee Infection Infection Problem Active UT associated associated Ph ysici with with ans internal internal right hip right hip prosthesis prosthesis , initial , initial encounter encounter Right Right Problem Active [facility] shoulder shoulder Physic i tendonitis tendonitis an s Hip Hip Problem Active [facility] strain, strain, Physici right, right, ans initial initial encounter encounter Hypertensi Hypertensi Problem Active U T on on Physici ans Hyperlipid Hyperlipid Problem Active U T emia emia Physici ans GERD GERD Problem Active UT (gastroeso (gastroeso Ph ysici phageal phageal ans reflux reflux disease) disease) Primary Primary Problem Active [facility] localized localized Phys ici osteoarthr osteoarthr an s itis of itis of left knee left knee Strain of Strain of Problem Active UT right hip, right hip, Ph ysici sequela sequela ans Acute leg Acute leg Problem Active UT pain pain Physici ans Pain in Pain in Problem Active [facility] shoulder shoulder Physic i ans Osteoarthr Osteoarthr Problem Active [facility] itis of itis of Family knee Knee Practic e Hyperchole Hyperchole Problem Active [facility] sterolemia sterolemia Fa randy Practic e Depressive Depressive Problem Active [facility] disorder Disorder Family Practic e Bronchitis Bronchitis Problem Active [facility] Family Practic e Gastroesop Gastroesop Problem Active [facility] hageal hageal Family reflux Reflux Practic disease Disease e Gastritis Gastritis Problem Active [facility] e Arthritis Arthritis Problem Active [facility] e Shoulder Shoulder Problem Active [facility] pain Pain Family Practic e Degenerati Degenerati Problem Active [facility] on of on of Family lumbar Lumbar Practic interverte Interverte e bral disc bral Disc Degenerati Degenerati Problem Active [facility] on of on of Family interverte Interverte Pr actic bral disc bral Disc e Disorder Disorder Problem Active [place] [facility] of tendon of Tendon Fami ly of of Practic shoulder Shoulder e region Region Pain in Pain in Problem Active [facility] lower limb Lower Limb Fa randy Practic e Closed Closed Problem Active [place] fracture Fracture Family of patella of Patella Pr actic e Strain of Strain of Problem Active Radha danette flexor Flexor Family muscle of Muscle of Prac tic hip Hip e Prosthetic Prosthetic Problem Active [facility] joint Joint Family infection Infection Prac tic e Allergies, Adverse Reactions, Alerts This patient has no known allergies or adverse reactions. Family History Family Member Diagnosis Comments Start Date Stop Date Source Natural father Cancer [facility] Natural mother Emphysema [facility] Natural mother [facility] disease [facility] Other [facility] Hosp ital Social History Social Habit Start Date Stop Date Quantity Comments Source History of Tobacco Common Spirit - Use [facility] Gender identity [facility] Sexual orientation [facility] History of Social 2019-04-28 2019-04-[address] function 00:00:00 00:00:00 Hospital Alcohol intake 2018-07-13 2018-07-13 Current [facility]00 alcohol (finding) [facility] Alcohol Comment 2018-07-12 2018-07-[address] [facility] 00:00:00 00:00:00 [facility] Cigarettes smoked 2018-07-12 2018-07-12 [facility] current (pack per 00:00:00 00:00:00 Medical Center day) - Reported Cigarette 2018-07-12 2018-07-12 [facility] pack-years 00:00:00 00:00:00 [facility] Tobacco use and 2016-10-31 2016-10-31 Smokeless tobacco Me [facility] exposure 00:00:00 00:00:00 non-user Hospital Sex Assigned At [birth year] [facility]3] kezias 00:00:00 00:00:00 [facility] Smoking Status Start Date Stop Date Source Former Smoker 2022-06-27 00:00:00 2022-06-27 00:00:00 Common S pirit - [facility] Current Smoker 2022-03-15 00:00:00 Common Spiri t - [facility] Medications Ordered Filled Start Stop Current Ordering Indication Dosage Frequency Signature Comments Components Source Medication Medication Date Date Medication? Clinician (SIG) Name Name Ciprofloxac Ciprofloxac 2021- No 1{table BID Ciprofloxa in HCl 500 in HCl 500 05-06 t} tammy HCl MG MG 00:00: 00:00 500 MG 00 :00 traMADol traMADol 2021- No 1{table traMADol HCl 50 MG HCl 50 MG 04-30 t_as_ne HCl 50 MG 00:00: 00:00 eded} 00 :00 traMADol traMADol 2021- No 1{table traMADol HCl 50 MG HCl 50 MG 04-30 t_as_ne HCl 50 MG 00:00: 00:00 eded} 00 :00 traMADol traMADol 2021- No 1{table traMADol HCl 50 MG HCl 50 MG 04-30 t_as_ne HCl 50 MG 00:00: 00:00 eded} 00 :00 traMADol traMADol 2021- No 1{table traMADol HCl 50 MG HCl 50 MG 04-30 t_as_ne HCl 50 MG 00:00: 00:00 eded} 00 :00 traMADol traMADol 2021- No 1{table traMADol HCl 50 MG HCl 50 MG 04-30 t_as_ne HCl 50 MG 00:00: 00:00 eded} 00 :00 Cephalexin Cephalexin 2021- No 1{capsu BID Cephalexin 500 MG 500 MG 03-15 le} 500 MG 00:00: 00:00 00 :00 Ciprofloxac Ciprofloxac 2021- No 1{table BID Ciprofloxa in HCl 500 in HCl 500 12-21 t} tammy HCl MG MG 00:00: 00:00 500 MG 00 :00 carvedilol Yes 6.25mg Q.5D Take 6.25 [facility] (COREG) 9-[address] 6.25 MG 11:22: mouth 2 Hospita tablet 32 (two) l times a day with meals. losartan-hy Yes 1{tbl} QD Take 1 Me [facility] drochloroth 9-[address] iazide 11:22: mouth Hospita (HYZAAR) 32 daily. l 100-25 mg per tablet gabapentin Yes 600mg Q.[id number] Take 600 [facility] (NEURONTIN) 9-30 [id number] mg by s t 600 mg 11:22: 3D mouth 3 Hospita tablet 32 (three) l times a day. atorvastati Yes 20mg QD Take 20 mg [facility] n (LIPITOR) 9-[address] 20 MG 11:22: daily. Hospita tablet 32 l tiZANidine Yes 4mg QD Take 4 mg Me [facility] (ZANAFLEX) 9-[address] 4 MG tablet 11:22: nightly. Ho spita 32 l fluticasone 2019-0 Yes 2{spray QD 2 sprays [facility] (FLONASE) 9-30 } by Each st 50 11:22: Nare route Hospita mcg/actuati 32 daily. l on nasal spray ranitidine 2018-0 Yes 150mg QD Take 150 Me [facility] (ZANTAC) 9-[address] 150 MG 11:22: mouth Hospita tablet 32 daily. l cetirizine 0 Yes 10mg QD Take 10 mg M ethodi (ZyrTEC) 10 9-[address] MG tablet 11:22: daily. Hospit a 32 l acetaminoph 2018-0 Yes 1{tbl} Q4H Take 1 [facility] en-codeine 9-[address] (TYLENOL 11:22: mouth Hospita WITH 32 every 4 l CODEINE #3) (four) 300-30 mg hours as per tablet needed for moderate pain. multivitami 2018-0 Yes 1{tbl} QD Take 1 Me thodi n with 9-[address] minerals 11:22: mouth Hospita tablet 32 daily. l ascorbic 2018-0 Yes 1000mg QD Take 1,000 M ethodi acid, 9-[address] vitamin C, 11:22: mouth Hospit a (vitamin C) 32 daily. l 1000 MG tablet varenicline 0 Yes 1mg Q.5D Take 1 mg M ethodi (CHANTIX) 1 9-[address] mg tablet 11:22: (two) Hospita 32 times a l day. Take with full glass of water. pantoprazol 2018-0 Yes 40mg QD Take 40 mg Methodi e 9-[address] (PROTONIX) 11:22: daily. Hospi ta 40 MG EC 32 l tablet celecoxib 2018-0 Yes 200mg Q.5D Take 200 Met [facility] (CeleBREX) 9-[address] 200 MG 11:22: mouth 2 Hospita capsule 32 (two) l times a day. sertraline 2018-0 Yes 100mg QD Take 100 Me [facility] (ZOLOFT) 9-[address] 100 MG 11:22: mouth Hospita tablet 32 nightly. l traZODone 2018-0 Yes 50mg QD Take 50 mg Me thodi (DESYREL) 9-[address] 50 MG 11:22: nightly. Hospita tablet 32 l pantoprazol 2017-08 Yes 40mg QD Take [address] [facility] 1-28 tablet (40 [facility] (PROTONIX) 00:00: mg total) Me dical 40 MG 00 by mouth Center tablet daily. carvedilol 2017-08 Yes 6.25mg Q.5D Take 6.[address] (COREG) 1-27 mg by [facility] 6.25 MG 15:09: mouth 2 Medical tablet 02 (two) Center times daily. atorvastati 2017-08 Yes 20mg QD Take [address] n (LIPITOR) -27 by mouth Luke s 20 MG 15:09: nightly. Medical tablet 02 Center gabapentin 2017-08 Yes 1{tbl} Q.[id number] Take [address] (NEURONTIN) - [id number] tablet by [facility] 800 MG 15:09: 3D mouth 3 Medical tablet 02 (three) Center times daily. tiZANidine 2017-08 Yes 4mg QD Take [address] (ZANAFLEX) -27 by mouth [facility] 4 MG tablet 15:09: nightly. Me dical 02 Center apixaban 2017-08 Yes 5mg Q.5D Take [address] (ELIQUIS) 5 1-27 tablet (5 Donnie es mg Tab 00:00: mg total) Medica l tablet 00 by mouth 2 Center (two) times daily. Acetaminoph Acetaminoph 2017-08 Yes NATY 2 TAKE 1 TO UT en-Codeine en-Codeine 0-10 YOUNG P.A. 2 TABLETS Physici #3 300-30 #3 300-30 00:00: EVERY 4 TO ans MG Oral MG Oral 00 6 HOURS Tablet Tablet NEEDED FOR PAIN. acetaminoph 2017-08 Yes 1{tbl} Take [address] en-codeine 0-10 tablet by Luke s (TYLENOL 00:00: mouth Medical #3) 300-30 00 every 6 Center mg per (six) tablet hours as needed. UNIFINE Yes USE Methodi PENTIPS 31 6-[address] gauge x 00:00: ONCE DAILY Hosp matt 10/31" 00 l needle methylPREDN Yes [id number] 40mg M ethodi ISolone 3-16 st acetate 20:00: Hospita (DEPO-MEDRO 00 l L) injection 40 mg Aspirin 81 Aspirin 81 No 1{table QD Aspirin 81 MG MG t} MG Vitamin C Vitamin C No 1{table QD Vitamin C 100 MG 100 MG t} 100 MG Atorvastati Atorvastati No 1{table QD Atorvastat n Calcium n Calcium t} in Calcium 20 MG 20 MG 20 MG Metoprolol Metoprolol No 1{table QD Metoprolol Succinate Succinate t} Succinate ER 25 MG ER 25 MG ER 25 MG Zinc + Zinc + No Zinc + Vitamin C Vitamin C Vitamin C Losartan Losartan No 1{table QD Losartan Potassium-H Potassium-H t} Potassium- CTZ 100-25 CTZ 100-25 HCTZ MG MG 100-25 MG Gabapentin Gabapentin No 1{table TID Gabapentin 600 MG 600 MG t} 600 MG traZODone traZODone No 1{table QD traZODone HCl 50 MG HCl 50 MG t_at_be HCl 50 MG dtime} buPROPion buPROPion No 1{table QD buPROPion HCl ER (XL) HCl ER (XL) t_in_th HCl ER 150 MG 150 MG e_morni (XL) 150 ng} MG Sertraline Sertraline No 1{table QD Sertraline HCl 50 MG HCl 50 MG t} HCl 50 MG Iron 325 Iron 325 No 1{table QD Iron 325 (65 Fe) MG (65 Fe) MG t} (65 Fe) MG Gabapentin Gabapentin No 1{table TID Gabapentin 600 MG 600 MG t} 600 MG Magnesium Magnesium No 1{table Magnesium 30 MG 30 MG t_with_ 30 MG a_meal} Aspirin 81 Aspirin 81 No 1{table QD Aspirin 81 MG MG t} MG traZODone traZODone No 1{table QD traZODone HCl 50 MG HCl 50 MG t_at_be HCl 50 MG dtime} Iron 325 Iron 325 No 1{table QD Iron 325 (65 Fe) MG (65 Fe) MG t} (65 Fe) MG Losartan Losartan No 1{table QD Losartan Potassium-H Potassium-H t} Potassium- CTZ 100-25 CTZ 100-25 HCTZ MG MG 100-25 MG Sertraline Sertraline No 1{table QD Sertraline HCl 50 MG HCl 50 MG t} HCl 50 MG Vitamin C Vitamin C No 1{table QD Vitamin C 100 MG 100 MG t} 100 MG Potassium Potassium No 1{table Potassium 99 MG 99 MG t} 99 MG Atorvastati Atorvastati No 1{table QD Atorvastat n Calcium n Calcium t} in Calcium 20 MG 20 MG 20 MG Metoprolol Metoprolol No 1{table QD Metoprolol Succinate Succinate t} Succinate ER 25 MG ER 25 MG ER 25 MG Pantoprazol Pantoprazol No 1{table QD Pantoprazo e Sodium 40 e Sodium 40 t} le Sodium MG MG 40 MG Vitamin B Vitamin B No Vitamin B 12 12 12 Zinc + Zinc + No Zinc + Vitamin C Vitamin C Vitamin C buPROPion buPROPion No 1{table QD buPROPion HCl ER (XL) HCl ER (XL) t_in_th HCl ER 150 MG 150 MG e_morni (XL) 150 ng} MG Sertraline Sertraline No 1{table QD Sertraline HCl 50 MG HCl 50 MG t} HCl 50 MG traZODone traZODone No 1{table QD traZODone HCl 50 MG HCl 50 MG t_at_be HCl 50 MG dtime} Iron 325 Iron 325 No 1{table QD Iron 325 (65 Fe) MG (65 Fe) MG t} (65 Fe) MG Pantoprazol Pantoprazol No 1{table QD Pantoprazo e Sodium 40 e Sodium 40 t} le Sodium MG MG 40 MG Potassium Potassium No 1{table Potassium 99 MG 99 MG t} 99 MG Zinc + Zinc + No Zinc + Vitamin C Vitamin C Vitamin C Aspirin 81 Aspirin 81 No 1{table QD Aspirin 81 MG MG t} MG Magnesium Magnesium No 1{table Magnesium 30 MG 30 MG t_with_ 30 MG a_meal} buPROPion buPROPion No 1{table QD buPROPion HCl ER (XL) HCl ER (XL) t_in_th HCl ER 150 MG 150 MG e_morni (XL) 150 ng} MG Atorvastati Atorvastati No 1{table QD Atorvastat n Calcium n Calcium t} in Calcium 20 MG 20 MG 20 MG Vitamin B Vitamin B No Vitamin B 12 12 12 Losartan Losartan No 1{table QD Losartan Potassium-H Potassium-H t} Potassium- CTZ 100-25 CTZ 100-25 HCTZ MG MG 100-25 MG Vitamin C Vitamin C No 1{table QD Vitamin C 100 MG 100 MG t} 100 MG Metoprolol Metoprolol No 1{table QD Metoprolol Succinate Succinate t} Succinate ER 25 MG ER 25 MG ER 25 MG Coreg TABS Coreg TABS Yes M.A. [facility] Physici ans Gabapentin Gabapentin No 1{table TID Gabapentin 600 MG 600 MG t} 600 MG Sertraline Sertraline No 1{table QD Sertraline HCl 50 MG HCl 50 MG t} HCl 50 MG traZODone traZODone No 1{table QD traZODone HCl 50 MG HCl 50 MG t_at_be HCl 50 MG dtime} Iron 325 Iron 325 No 1{table QD Iron 325 (65 Fe) MG (65 Fe) MG t} (65 Fe) MG Potassium Potassium No 1{table Potassium 99 MG 99 MG t} 99 MG Aspirin 81 Aspirin 81 No 1{table QD Aspirin 81 MG MG t} MG Atorvastati Atorvastati No 1{table QD Atorvastat n Calcium n Calcium t} in Calcium 20 MG 20 MG 20 MG Vitamin C Vitamin C No 1{table QD Vitamin C 100 MG 100 MG t} 100 MG Magnesium Magnesium No 1{table Magnesium 30 MG 30 MG t_with_ 30 MG a_meal} Zinc + Zinc + No Zinc + Vitamin C Vitamin C Vitamin C Cozaar TABS Cozaar TABS Yes M.A. U T Physici ans buPROPion buPROPion No QD buPROPion HCl ER (XL) HCl ER (XL) HCl ER 150 MG 150 MG (XL) 150 MG Losartan Losartan No 1{table QD Losartan Potassium-H Potassium-H t} Potassium- CTZ 100-25 CTZ 100-25 HCTZ MG MG 100-25 MG Vitamin B Vitamin B No Vitamin B 12 12 12 Metoprolol Metoprolol No 1{table QD Metoprolol Succinate Succinate t} Succinate ER 25 MG ER 25 MG ER 25 MG Pantoprazol Pantoprazol No 1{table QD Pantoprazo e Sodium 40 e Sodium 40 t} le Sodium MG MG 40 MG Gabapentin Gabapentin No 1{table TID Gabapentin 600 MG 600 MG t} 600 MG Pantoprazol Pantoprazol No 1{table QD Pantoprazo e Sodium 40 e Sodium 40 t} le Sodium MG MG 40 MG Gabapentin Gabapentin No 1{table TID Gabapentin 600 MG 600 MG t} 600 MG Vitamin B Vitamin B No Vitamin B 12 12 12 Vitamin C Vitamin C No 1{table QD Vitamin C 100 MG 100 MG t} 100 MG Gabapentin Gabapentin Yes M.A. [facility] TABS TABS Physici ans Metoprolol Metoprolol No 1{table QD Metoprolol Succinate Succinate t} Succinate ER 25 MG ER 25 MG ER 25 MG Sertraline Sertraline No 1{table QD Sertraline HCl 50 MG HCl 50 MG t} HCl 50 MG Atorvastati Atorvastati No 1{table QD Atorvastat n Calcium n Calcium t} in Calcium 20 MG 20 MG 20 MG Iron 325 Iron 325 No 1{table QD Iron 325 (65 Fe) MG (65 Fe) MG t} (65 Fe) MG Zinc + Zinc + No Zinc + Vitamin C Vitamin C Vitamin C buPROPion buPROPion No QD buPROPion HCl ER (XL) HCl ER (XL) HCl ER 150 MG 150 MG (XL) 150 MG traZODone traZODone No 1{table QD traZODone HCl 50 MG HCl 50 MG t_at_be HCl 50 MG dtime} Losartan Losartan No 1{table QD Losartan Potassium-H Potassium-H t} Potassium- CTZ 100-25 CTZ 100-25 HCTZ MG MG 100-25 MG Aspirin 81 Aspirin 81 No 1{table QD Aspirin 81 MG MG t} MG Magnesium Magnesium No 1{table Magnesium 30 MG 30 MG t_with_ 30 MG a_meal} Zanaflex Zanaflex Yes M.A. [facility] CAPS CAPS Physici ans Potassium Potassium No 1{table Potassium 99 MG 99 MG t} 99 MG Magnesium Magnesium No 1{table Magnesium 30 MG 30 MG t_with_ 30 MG a_meal} Pantoprazol Pantoprazol No 1{table QD Pantoprazo e Sodium 40 e Sodium 40 t} le Sodium MG MG 40 MG Gabapentin Gabapentin No 1{table TID Gabapentin 600 MG 600 MG t} 600 MG Vitamin B Vitamin B No Vitamin B 12 12 12 Vitamin C Vitamin C No 1{table QD Vitamin C 100 MG 100 MG t} 100 MG Iron 325 Iron 325 No 1{table QD Iron 325 (65 Fe) MG (65 Fe) MG t} (65 Fe) MG Metoprolol Metoprolol No 1{table QD Metoprolol Succinate Succinate t} Succinate ER 25 MG ER 25 MG ER 25 MG Sertraline Sertraline No 1{table QD Sertraline HCl 50 MG HCl 50 MG t} HCl 50 MG Atorvastati Atorvastati No 1{table QD Atorvastat n Calcium n Calcium t} in Calcium 20 MG 20 MG 20 MG Lipitor Lipitor Yes M.A. [facility] TABS TABS Physici ans Iron 325 Iron 325 No 1{table QD Iron 325 (65 Fe) MG (65 Fe) MG t} (65 Fe) MG Zinc + Zinc + No Zinc + Vitamin C Vitamin C Vitamin C buPROPion buPROPion No QD buPROPion HCl ER (XL) HCl ER (XL) HCl ER 150 MG 150 MG (XL) 150 MG traZODone traZODone No 1{table QD traZODone HCl 50 MG HCl 50 MG t_at_be HCl 50 MG dtime} Losartan Losartan No 1{table QD Losartan Potassium-H Potassium-H t} Potassium- CTZ 100-25 CTZ 100-25 HCTZ MG MG 100-25 MG Aspirin 81 Aspirin 81 No 1{table QD Aspirin 81 MG MG t} MG Magnesium Magnesium No 1{table Magnesium 30 MG 30 MG t_with_ 30 MG a_meal} Gabapentin Gabapentin No 1{table TID Gabapentin 600 MG 600 MG t} 600 MG Potassium Potassium No 1{table Potassium 99 MG 99 MG t} 99 MG Potassium Potassium No 1{table Potassium 99 MG 99 MG t} 99 MG traZODone traZODone No 1{table QD traZODone HCl 50 MG HCl 50 MG t_at_be HCl 50 MG dtime} Vitamin B Vitamin B No Vitamin B 12 12 12 Metoprolol Metoprolol No 1{table QD Metoprolol Succinate Succinate t} Succinate ER 25 MG ER 25 MG ER 25 MG Sertraline Sertraline No 1{table QD Sertraline HCl 50 MG HCl 50 MG t} HCl 50 MG Vitamin C Vitamin C No 1{table QD Vitamin C 100 MG 100 MG t} 100 MG Aspirin 81 Aspirin 81 No 1{table QD Aspirin 81 MG MG t} MG Iron 325 Iron 325 No 1{table QD Iron 325 (65 Fe) MG (65 Fe) MG t} (65 Fe) MG Gabapentin Gabapentin No 1{table TID Gabapentin 600 MG 600 MG t} 600 MG Vitamin B Vitamin B No Vitamin B 12 12 12 Losartan Losartan No 1{table QD Losartan Potassium-H Potassium-H t} Potassium- CTZ 100-25 CTZ 100-25 HCTZ MG MG 100-25 MG Magnesium Magnesium No 1{table Magnesium 30 MG 30 MG t_with_ 30 MG a_meal} Atorvastati Atorvastati No 1{table QD Atorvastat n Calcium n Calcium t} in Calcium 20 MG 20 MG 20 MG Aspirin 81 Aspirin 81 No 1{table QD Aspirin 81 MG MG t} MG Pantoprazol Pantoprazol No 1{table QD Pantoprazo e Sodium 40 e Sodium 40 t} le Sodium MG MG 40 MG Zinc + Zinc + No Zinc + Vitamin C Vitamin C Vitamin C buPROPion buPROPion No QD buPROPion HCl ER (XL) HCl ER (XL) HCl ER 150 MG 150 MG (XL) 150 MG Potassium Potassium No 1{table Potassium 99 MG 99 MG t} 99 MG Potassium Potassium No 1{table Potassium 99 MG 99 MG t} 99 MG buPROPion buPROPion No QD buPROPion HCl ER (XL) HCl ER (XL) HCl ER 150 MG 150 MG (XL) 150 MG tiZANidine tiZANidine No tiZANidine HCl 4 MG HCl 4 MG HCl 4 MG Metoprolol Metoprolol No 1{table QD Metoprolol Succinate Succinate t} Succinate ER 25 MG ER 25 MG ER 25 MG Sertraline Sertraline No 1{table QD Sertraline HCl 50 MG HCl 50 MG t} HCl 50 MG Vitamin C Vitamin C No 1{table QD Vitamin C 100 MG 100 MG t} 100 MG Aspirin 81 Aspirin 81 No 1{table QD Aspirin 81 MG MG t} MG Gabapentin Gabapentin No 1{table TID Gabapentin 600 MG 600 MG t} 600 MG traZODone traZODone No 1{table QD traZODone HCl 50 MG HCl 50 MG t_at_be HCl 50 MG dtime} Vitamin B Vitamin B No Vitamin B 12 12 12 Atorvastati Atorvastati No 1{table QD Atorvastat n Calcium n Calcium t} in Calcium 20 MG 20 MG 20 MG Magnesium Magnesium No 1{table Magnesium 30 MG 30 MG t_with_ 30 MG a_meal} Iron 325 Iron 325 No 1{table QD Iron 325 (65 Fe) MG (65 Fe) MG t} (65 Fe) MG Pantoprazol Pantoprazol No 1{table QD Pantoprazo e Sodium 40 e Sodium 40 t} le Sodium MG MG 40 MG Zinc + Zinc + No Zinc + Vitamin C Vitamin C Vitamin C Losartan Losartan No 1{table QD Losartan Potassium-H Potassium-H t} Potassium- CTZ 100-25 CTZ 100-25 HCTZ MG MG 100-25 MG Vitamin C Vitamin C No 1{table QD Vitamin C 100 MG 100 MG t} 100 MG Pantoprazol Pantoprazol No 1{table QD Pantoprazo e Sodium 40 e Sodium 40 t} le Sodium MG MG 40 MG Metoprolol Metoprolol No 1{table QD Metoprolol Succinate Succinate t} Succinate ER 25 MG ER 25 MG ER 25 MG traZODone traZODone No 1{table QD traZODone HCl 50 MG HCl 50 MG t_at_be HCl 50 MG dtime} Sertraline Sertraline No 1{table QD Sertraline HCl 50 MG HCl 50 MG t} HCl 50 MG Atorvastati Atorvastati No 1{table QD Atorvastat n Calcium n Calcium t} in Calcium 20 MG 20 MG 20 MG buPROPion buPROPion No 1{table QD buPROPion HCl ER (XL) HCl ER (XL) t_in_th HCl ER 150 MG 150 MG e_morni (XL) 150 ng} MG Zinc + Zinc + No Zinc + Vitamin C Vitamin C Vitamin C Losartan Losartan No 1{table QD Losartan Potassium-H Potassium-H t} Potassium- CTZ 100-25 CTZ 100-25 HCTZ MG MG 100-25 MG amlodipine amlodipine No amlodipine [place] 5 mg tablet 5 mg tablet 5 mg F amily TAKE ONE TAKE ONE tablet Pract ic (1) (1) TAKE ONE e TABLET(S) TABLET(S) (1) BY MOUTH BY MOUTH TABLET(S) ONCE A DAY. ONCE A DAY. BY MOUTH ONCE A DAY. Vitamin B Vitamin B No Vitamin B 12 12 12 Magnesium Magnesium No 1{table Magnesium 30 MG 30 MG t_with_ 30 MG a_meal} atorvastati atorvastati No atorvastat [place] n 20 mg n 20 mg in 20 mg Famil y tablet TAKE tablet TAKE tablet Practic ONE (1) ONE (1) TAKE ONE e TABLET(S) TABLET(S) (1) BY MOUTH BY MOUTH TABLET(S) DAILY. DAILY. BY MOUTH DAILY. Pantoprazol Pantoprazol No 1{table QD Pantoprazo e Sodium 40 e Sodium 40 t} le Sodium MG MG 40 MG bupropion bupropion No bupropion [place] HCl XL 300 HCl XL 300 HCl XL 300 Family mg 24 hr mg 24 hr mg 24 hr Pra ctic tablet, tablet, tablet, e extended extended extended release release release TAKE ONE TAKE ONE TAKE ONE (1) (1) (1) TABLET(S) TABLET(S) TABLET(S) BY MOUTH BY MOUTH BY MOUTH ONCE A DAY. ONCE A DAY. ONCE A DAY. Potassium Potassium No 1{table Potassium 99 MG 99 MG t} 99 MG Coreg 25 mg Coreg 25 mg No Coreg 25 [place] tablet 1 tablet 1 mg tablet Fa randy tab twice tab twice 1 tab Prac tic daily daily twice e daily Aspirin 81 Aspirin 81 No 1{table QD Aspirin 81 MG MG t} MG Cozaar 100 Cozaar 100 No Cozaar 100 [place] mg tablet 1 mg tablet 1 mg tablet Family tab once tab once 1 tab once P ractic daily daily daily e Vitamin C Vitamin C No 1{table QD Vitamin C 100 MG 100 MG t} 100 MG Atorvastati Atorvastati No 1{table QD Atorvastat n Calcium n Calcium t} in Calcium 20 MG 20 MG 20 MG duloxetine duloxetine No 1capsul Q1D duloxetine [facility] 30 mg 30 mg e(s) 30 mg Family capsule,del capsule,del capsule,de Practic ayed ayed layed e release release release Take 1 Take 1 Take 1 capsule capsule capsule every day every day every day by oral by oral by oral route for route for route for 30 days. 30 days. 30 days. Metoprolol Metoprolol No 1{table QD Metoprolol Succinate Succinate t} Succinate ER 25 MG ER 25 MG ER 25 MG FeroSul 325 FeroSul 325 No FeroSul [place] mg (65 mg mg (65 mg 325 mg (65 Family iron) iron) mg iron) Practic tablet TAKE tablet TAKE tablet e ONE (1) ONE (1) TAKE ONE TABLET(S) TABLET(S) (1) BY MOUTH BY MOUTH TABLET(S) ONCE A DAY. ONCE A DAY. BY MOUTH ONCE A DAY. Zinc + Zinc + No Zinc + Vitamin C Vitamin C Vitamin C fluticasone fluticasone No 2spray( Q1D fluticason [place] propionate propionate s) e Fam [place] 50 50 propionate Practic mcg/actuati mcg/actuati 50 e on nasal on nasal mcg/actuat spray,suspe spray,suspe ion nasal nsion [place] nsion [place] spray,susp 2 sprays 2 sprays ension every day every day [place] 2 by by sprays intranasal intranasal every day route. prn route. prn by congestion congestion intranasal route. prn congestion Losartan Losartan No 1{table QD Losartan Potassium-H Potassium-H t} Potassium- CTZ 100-25 CTZ 100-25 HCTZ MG MG 100-25 MG gabapentin gabapentin No gabapentin [place] 600 mg 600 mg 600 mg Family tablet TAKE tablet TAKE tablet Practic 1 TABLET BY 1 TABLET BY TAKE 1 e MOUTH THREE MOUTH THREE TABLET BY TIMES DAILY TIMES DAILY MOUTH FOR 30 DAYS FOR 30 DAYS THREE TIMES DAILY FOR 30 DAYS Gabapentin Gabapentin No 1{table TID Gabapentin 600 MG 600 MG t} 600 MG ketorolac ketorolac No ketorolac [facility] 10 mg 10 mg 10 mg Family tablet TAKE tablet TAKE tablet Practic ONE (1) ONE (1) TAKE ONE e TABLET(S) TABLET(S) (1) BY MOUTH BY MOUTH TABLET(S) EVERY SIX EVERY SIX BY MOUTH HOURS HOURS EVERY SIX NEEDED FOR NEEDED FOR HOURS PAIN. PAIN. NEEDED FOR PAIN. traZODone traZODone No 1{table QD traZODone HCl 50 MG HCl 50 MG t_at_be HCl 50 MG dtime} buPROPion buPROPion No 1{table QD buPROPion HCl ER (XL) HCl ER (XL) t_in_th HCl ER 150 MG 150 MG e_morni (XL) 150 ng} MG Lipitor 80 Lipitor 80 No Lipitor 80 [place] mg tablet mg tablet mg tablet Family Practic e Sertraline Sertraline No 1{table QD Sertraline HCl 50 MG HCl 50 MG t} HCl 50 MG meloxicam meloxicam No meloxicam [facility] 7.5 mg 7.5 mg 7.5 mg Family tablet TAKE tablet TAKE tablet Practic ONE (1) ONE (1) TAKE ONE e TABLET(S) TABLET(S) (1) BY MOUTH BY MOUTH TABLET(S) ONCE A DAY ONCE A DAY BY MOUTH NEEDED. NEEDED. ONCE A DAY NEEDED. Iron 325 Iron 325 No 1{table QD Iron 325 (65 Fe) MG (65 Fe) MG t} (65 Fe) MG metoprolol metoprolol No metoprolol [facility] succinate succinate succinate Family ER 25 mg ER 25 mg ER 25 mg Pra ctic tablet,exte tablet,exte tablet,ext e nded nded ended release 24 release 24 release 24 hr TAKE ONE hr TAKE ONE hr TAKE (1) (1) ONE (1) TABLET(S) TABLET(S) TABLET(S) BY MOUTH BY MOUTH BY MOUTH ONCE A DAY. ONCE A DAY. ONCE A DAY. Sertraline Sertraline No 1{table QD Sertraline HCl 25 MG HCl 25 MG t} HCl 25 MG pantoprazol pantoprazol No pantoprazo [place] e 40 mg e 40 mg le 40 mg Famil y tablet,vj tablet,vj tablet,del Practic yed release yed release ayed e TAKE ONE TAKE ONE release (1) (1) TAKE ONE TABLET(S) TABLET(S) (1) BY MOUTH BY MOUTH TABLET(S) DAILY. DAILY. BY MOUTH DAILY. Pantoprazol Pantoprazol No 1{table QD Pantoprazo e Sodium 40 e Sodium 40 t} le Sodium MG MG 40 MG tizanidine tizanidine No tizanidine [place] 4 mg tablet 4 mg tablet 4 mg F amily TAKE ONE TAKE ONE tablet Pract ic (1) (1) TAKE ONE e TABLET(S) TABLET(S) (1) BY MOUTH BY MOUTH TABLET(S) ONCE A DAY ONCE A DAY BY MOUTH NEEDED. NEEDED. ONCE A DAY NEEDED. Gabapentin Gabapentin No 1{table TID Gabapentin 600 MG 600 MG t} 600 MG trazodone trazodone No trazodone [place] 50 mg 50 mg 50 mg Family tablet TAKE tablet TAKE tablet Practic ONE (1) ONE (1) TAKE ONE e TABLET(S) TABLET(S) (1) BY MOUTH AT BY MOUTH AT TABLET(S) BEDTIME. BEDTIME. BY MOUTH AT BEDTIME. traZODone traZODone No traZODone HCl 50 MG HCl 50 MG HCl 50 MG Zanaflex 6 Zanaflex 6 No Zanaflex 6 [place] mg capsule mg capsule mg capsule Family Practic e Atorvastati Atorvastati No Atorvastat n Calcium n Calcium in Calcium 20 MG 20 MG 20 MG amlodipine amlodipine No amlodipine [place] 5 mg tablet 5 mg tablet 5 mg F amily TAKE ONE TAKE ONE tablet Pract ic (1) (1) TAKE ONE e TABLET(S) TABLET(S) (1) BY MOUTH BY MOUTH TABLET(S) ONCE A DAY. ONCE A DAY. BY MOUTH ONCE A DAY. Aspirin 81 Aspirin 81 No 1{table QD Aspirin 81 MG MG t} MG Losartan Losartan No 1{table QD Losartan Potassium-H Potassium-H t} Potassium- CTZ 100-25 CTZ 100-25 HCTZ MG MG 100-25 MG atorvastati atorvastati No atorvastat [place] n 20 mg n 20 mg in 20 mg Famil y tablet TAKE tablet TAKE tablet Practic ONE (1) ONE (1) TAKE ONE e TABLET(S) TABLET(S) (1) BY MOUTH BY MOUTH TABLET(S) DAILY. DAILY. BY MOUTH DAILY. tiZANidine tiZANidine No tiZANidine HCl 4 MG HCl 4 MG HCl 4 MG bupropion bupropion No bupropion [place] HCl XL 300 HCl XL 300 HCl XL 300 Family mg 24 hr mg 24 hr mg 24 hr Pra ctic tablet, tablet, tablet, e extended extended extended release release release TAKE ONE TAKE ONE TAKE ONE (1) (1) (1) TABLET(S) TABLET(S) TABLET(S) BY MOUTH BY MOUTH BY MOUTH ONCE A DAY. ONCE A DAY. ONCE A DAY. buPROPion buPROPion No 1{table QD buPROPion HCl ER (XL) HCl ER (XL) t_in_th HCl ER 150 MG 150 MG e_morni (XL) 150 ng} MG ciprofloxac ciprofloxac No ciprofloxa [facility] in 500 mg in 500 mg tammy 500 mg Family tablet TAKE tablet TAKE tablet Practic ONE (1) ONE (1) TAKE ONE e TABLET(S) TABLET(S) (1) BY MOUTH BY MOUTH TABLET(S) EVERY EVERY BY MOUTH TWELVE TWELVE EVERY HOURS. HOURS. TWELVE HOURS. Vitamin C Vitamin C No 1{table QD Vitamin C 100 MG 100 MG t} 100 MG Coreg 25 mg Coreg 25 mg No Coreg 25 [place] tablet 1 tablet 1 mg tablet Fa randy tab twice tab twice 1 tab Prac tic daily daily twice e daily Metoprolol Metoprolol No Metoprolol Succinate Succinate Succinate ER 25 MG ER 25 MG ER 25 MG Cozaar 100 Cozaar 100 No Cozaar 100 [place] mg tablet 1 mg tablet 1 mg tablet Family tab once tab once 1 tab once P ractic daily daily daily e Iron 325 Iron 325 No 1{table QD Iron 325 (65 Fe) MG (65 Fe) MG t} (65 Fe) MG duloxetine duloxetine No duloxetine [place] 30 mg 30 mg 30 mg Family capsule,del capsule,del capsule,de Practic ayed ayed layed e release release release TAKE ONE TAKE ONE TAKE ONE (1) (1) (1) CAPSULE(S) CAPSULE(S) CAPSULE(S) BY MOUTH BY MOUTH BY MOUTH ONCE A DAY. ONCE A DAY. ONCE A DAY. Losartan Losartan No 1{table QD Losartan Potassium-H Potassium-H t} Potassium- CTZ 100-25 CTZ 100-25 HCTZ MG MG 100-25 MG FeroSul 325 FeroSul 325 No FeroSul [place] mg (65 mg mg (65 mg 325 mg (65 Family iron) iron) mg iron) Practic tablet TAKE tablet TAKE tablet e ONE (1) ONE (1) TAKE ONE TABLET(S) TABLET(S) (1) BY MOUTH BY MOUTH TABLET(S) ONCE A DAY. ONCE A DAY. BY MOUTH ONCE A DAY. Potassium Potassium No 1{table Potassium 99 MG 99 MG t} 99 MG Zinc + Zinc + No Zinc + Vitamin C Vitamin C Vitamin C fluticasone fluticasone No 2spray( Q1D fluticason [place] propionate propionate s) e Fam [place] 50 50 propionate Practic mcg/actuati mcg/actuati 50 e on nasal on nasal mcg/actuat spray,suspe spray,suspe ion nasal nsion [place] nsion [place] spray,susp 2 sprays 2 sprays ension every day every day [place] 2 by by sprays intranasal intranasal every day route. prn route. prn by congestion congestion intranasal route. prn congestion Vitamin B Vitamin B No Vitamin B 12 12 12 gabapentin gabapentin No gabapentin [facility] 600 mg 600 mg 600 mg Family tablet TAKE tablet TAKE tablet Practic ONE (1) ONE (1) TAKE ONE e TABLET(S) TABLET(S) (1) BY MOUTH BY MOUTH TABLET(S) THREE TIMES THREE TIMES BY MOUTH A DAY. A DAY. THREE TIMES A DAY. Aspirin 81 Aspirin 81 No 1{table QD Aspirin 81 MG MG t} MG ketorolac ketorolac No ketorolac [facility] 10 mg 10 mg 10 mg Family tablet TAKE tablet TAKE tablet Practic ONE (1) ONE (1) TAKE ONE e TABLET(S) TABLET(S) (1) BY MOUTH BY MOUTH TABLET(S) EVERY SIX EVERY SIX BY MOUTH HOURS HOURS EVERY SIX NEEDED FOR NEEDED FOR HOURS PAIN. PAIN. NEEDED FOR PAIN. Vitamin C Vitamin C No 1{table QD Vitamin C 100 MG 100 MG t} 100 MG Iron 325 Iron 325 No 1{table QD Iron 325 (65 Fe) MG (65 Fe) MG t} (65 Fe) MG Lipitor 80 Lipitor 80 No Lipitor 80 [place] mg tablet mg tablet mg tablet Family Practic e Sertraline Sertraline No 1{table QD Sertraline HCl 25 MG HCl 25 MG t} HCl 25 MG meloxicam meloxicam No meloxicam [facility] 7.5 mg 7.5 mg 7.5 mg Family tablet TAKE tablet TAKE tablet Practic ONE (1) ONE (1) TAKE ONE e TABLET(S) TABLET(S) (1) BY MOUTH BY MOUTH TABLET(S) ONCE A DAY ONCE A DAY BY MOUTH NEEDED. NEEDED. ONCE A DAY NEEDED. tiZANidine tiZANidine No tiZANidine HCl 4 MG HCl 4 MG HCl 4 MG methylpredn methylpredn No methylpred [facility] isolone 4 isolone 4 nisolone 4 Family mg tablets mg tablets mg tablets Practic in a dose in a dose in a dose e pack pack pack traZODone traZODone No traZODone HCl 50 MG HCl 50 MG HCl 50 MG metoprolol metoprolol No metoprolol [place] succinate succinate succinate Family ER 25 mg ER 25 mg ER 25 mg Pra ctic tablet,exte tablet,exte tablet,ext e nded nded ended release 24 release 24 release 24 hr TAKE ONE hr TAKE ONE hr TAKE (1) (1) ONE (1) TABLET(S) TABLET(S) TABLET(S) BY MOUTH BY MOUTH BY MOUTH ONCE A DAY. ONCE A DAY. ONCE A DAY. Gabapentin Gabapentin No 1{table TID Gabapentin 600 MG 600 MG t} 600 MG pantoprazol pantoprazol No pantoprazo [place] e 40 mg e 40 mg le 40 mg Famil y tablet,vj tablet,vj tablet,del Practic yed release yed release ayed e TAKE ONE TAKE ONE release (1) (1) TAKE ONE TABLET(S) TABLET(S) (1) BY MOUTH BY MOUTH TABLET(S) ONCE A DAY. ONCE A DAY. BY MOUTH ONCE A DAY. Metoprolol Metoprolol No Metoprolol Succinate Succinate Succinate ER 25 MG ER 25 MG ER 25 MG buPROPion buPROPion No 1{table QD buPROPion HCl ER (XL) HCl ER (XL) t_in_th HCl ER 150 MG 150 MG e_morni (XL) 150 ng} MG Atorvastati Atorvastati No Atorvastat n Calcium n Calcium in Calcium 20 MG 20 MG 20 MG Magnesium Magnesium No 1{table Magnesium 30 MG 30 MG t_with_ 30 MG a_meal} sertraline sertraline No sertraline [place] 50 mg 50 mg 50 mg Family tablet TAKE tablet TAKE tablet Practic ONE (1) ONE (1) TAKE ONE e TABLET(S) TABLET(S) (1) BY MOUTH BY MOUTH TABLET(S) DAILY. DAILY. BY MOUTH DAILY. Pantoprazol Pantoprazol No 1{table QD Pantoprazo e Sodium 40 e Sodium 40 t} le Sodium MG MG 40 MG Losartan Losartan No 1{table QD Losartan Potassium-H Potassium-H t} Potassium- CTZ 100-25 CTZ 100-25 HCTZ MG MG 100-25 MG tizanidine tizanidine No tizanidine [place] 4 mg tablet 4 mg tablet 4 mg F amily TAKE ONE TAKE ONE tablet Pract ic (1) (1) TAKE ONE e TABLET(S) TABLET(S) (1) BY MOUTH BY MOUTH TABLET(S) ONCE A DAY ONCE A DAY BY MOUTH NEEDED. NEEDED. ONCE A DAY NEEDED. Potassium Potassium No 1{table Potassium 99 MG 99 MG t} 99 MG Zinc + Zinc + No Zinc + Vitamin C Vitamin C Vitamin C tramadol 50 tramadol 50 No tramadol [place] mg tablet mg tablet 50 mg Fami ly TAKE ONE TAKE ONE tablet Pract ic (1) (1) TAKE ONE e TABLET(S) TABLET(S) (1) BY MOUTH BY MOUTH TABLET(S) EVERY EVERY BY MOUTH TWELVE TWELVE EVERY HOURS HOURS TWELVE NEEDED. NEEDED. HOURS NEEDED. Vitamin B Vitamin B No Vitamin B 12 12 12 trazodone trazodone No trazodone [place] 50 mg 50 mg 50 mg Family tablet TAKE tablet TAKE tablet Practic ONE (1) ONE (1) TAKE ONE e TABLET(S) TABLET(S) (1) BY MOUTH AT BY MOUTH AT TABLET(S) BEDTIME. BEDTIME. BY MOUTH AT BEDTIME. Aspirin 81 Aspirin 81 No 1{table QD Aspirin 81 MG MG t} MG Vitamin C Vitamin C No 1{table QD Vitamin C 100 MG 100 MG t} 100 MG Zanaflex 6 Zanaflex 6 No Zanaflex 6 [place] mg capsule mg capsule mg capsule Family Practic e Iron 325 Iron 325 No 1{table QD Iron 325 (65 Fe) MG (65 Fe) MG t} (65 Fe) MG Sertraline Sertraline No 1{table QD Sertraline HCl 25 MG HCl 25 MG t} HCl 25 MG tiZANidine tiZANidine No tiZANidine HCl 4 MG HCl 4 MG HCl 4 MG traZODone traZODone No traZODone HCl 50 MG HCl 50 MG HCl 50 MG Gabapentin Gabapentin No 1{table TID Gabapentin 600 MG 600 MG t} 600 MG Metoprolol Metoprolol No Metoprolol Succinate Succinate Succinate ER 25 MG ER 25 MG ER 25 MG buPROPion buPROPion No 1{table QD buPROPion HCl ER (XL) HCl ER (XL) t_in_th HCl ER 150 MG 150 MG e_morni (XL) 150 ng} MG Atorvastati Atorvastati No Atorvastat n Calcium n Calcium in Calcium 20 MG 20 MG 20 MG Magnesium Magnesium No 1{table Magnesium 30 MG 30 MG t_with_ 30 MG a_meal} Pantoprazol Pantoprazol No 1{table QD Pantoprazo e Sodium 40 e Sodium 40 t} le Sodium MG MG 40 MG Losartan Losartan No 1{table QD Losartan Potassium-H Potassium-H t} Potassium- CTZ 100-25 CTZ 100-25 HCTZ MG MG 100-25 MG Potassium Potassium No 1{table Potassium 99 MG 99 MG t} 99 MG Zinc + Zinc + No Zinc + Vitamin C Vitamin C Vitamin C Vitamin B Vitamin B No Vitamin B 12 12 12 Aspirin 81 Aspirin 81 No 1{table QD Aspirin 81 MG MG t} MG Vitamin C Vitamin C No 1{table QD Vitamin C 100 MG 100 MG t} 100 MG Iron 325 Iron 325 No 1{table QD Iron 325 (65 Fe) MG (65 Fe) MG t} (65 Fe) MG Pantoprazol Pantoprazol No 1{table QD Pantoprazo e Sodium 40 e Sodium 40 t} le Sodium MG MG 40 MG tiZANidine tiZANidine No tiZANidine HCl 4 MG HCl 4 MG HCl 4 MG traZODone traZODone No traZODone HCl 50 MG HCl 50 MG HCl 50 MG buPROPion buPROPion No 1{table QD buPROPion HCl ER (XL) HCl ER (XL) t_in_th HCl ER 150 MG 150 MG e_morni (XL) 150 ng} MG Metoprolol Metoprolol No Metoprolol Succinate Succinate Succinate ER 25 MG ER 25 MG ER 25 MG Sertraline Sertraline No 1{table QD Sertraline HCl 25 MG HCl 25 MG t} HCl 25 MG Atorvastati Atorvastati No Atorvastat n Calcium n Calcium in Calcium 20 MG 20 MG 20 MG Magnesium Magnesium No 1{table Magnesium 30 MG 30 MG t_with_ 30 MG a_meal} Gabapentin Gabapentin No 1{table TID Gabapentin 600 MG 600 MG t} 600 MG traZODone traZODone No 1{table QD traZODone HCl 50 MG HCl 50 MG t_at_be HCl 50 MG dtime} Iron 325 Iron 325 No 1{table QD Iron 325 (65 Fe) MG (65 Fe) MG t} (65 Fe) MG Pantoprazol Pantoprazol No 1{table QD Pantoprazo e Sodium 40 e Sodium 40 t} le Sodium MG MG 40 MG Magnesium Magnesium No 1{table Magnesium 30 MG 30 MG t_with_ 30 MG a_meal} Vitamin C Vitamin C No 1{table QD Vitamin C 100 MG 100 MG t} 100 MG Vitamin B Vitamin B No Vitamin B 12 12 12 Aspirin 81 Aspirin 81 No 1{table QD Aspirin 81 MG MG t} MG buPROPion buPROPion No 1{table QD buPROPion HCl ER (XL) HCl ER (XL) t_in_th HCl ER 150 MG 150 MG e_morni (XL) 150 ng} MG Sertraline Sertraline No 1{table QD Sertraline HCl 25 MG HCl 25 MG t} HCl 25 MG Metoprolol Metoprolol No Metoprolol Succinate Succinate Succinate ER 25 MG ER 25 MG ER 25 MG Potassium Potassium No 1{table Potassium 99 MG 99 MG t} 99 MG tiZANidine tiZANidine No tiZANidine HCl 4 MG HCl 4 MG HCl 4 MG Gabapentin Gabapentin No 1{table TID Gabapentin 600 MG 600 MG t} 600 MG Atorvastati Atorvastati No Atorvastat n Calcium n Calcium in Calcium 20 MG 20 MG 20 MG Zinc + Zinc + No Zinc + Vitamin C Vitamin C Vitamin C Losartan Losartan No 1{table QD Losartan Potassium-H Potassium-H t} Potassium- CTZ 100-25 CTZ 100-25 HCTZ MG MG 100-25 MG Vitamin C Vitamin C No 1{table QD Vitamin C 100 MG 100 MG t} 100 MG buPROPion buPROPion No 1{table QD buPROPion HCl ER (XL) HCl ER (XL) t_in_th HCl ER 150 MG 150 MG e_morni (XL) 150 ng} MG tiZANidine tiZANidine No 1{table QD tiZANidine HCl 4 MG HCl 4 MG t_as_ne HCl 4 MG eded} Pantoprazol Pantoprazol No 1{table QD Pantoprazo e Sodium 40 e Sodium 40 t} le Sodium MG MG 40 MG Zinc + Zinc + No Zinc + Vitamin C Vitamin C Vitamin C Magnesium Magnesium No 1{table Magnesium 30 MG 30 MG t_with_ 30 MG a_meal} Potassium Potassium No 1{table Potassium 99 MG 99 MG t} 99 MG Metoprolol Metoprolol No Metoprolol Succinate Succinate Succinate ER 25 MG ER 25 MG ER 25 MG Gabapentin Gabapentin No 1{table TID Gabapentin 600 MG 600 MG t} 600 MG Atorvastati Atorvastati No Atorvastat n Calcium n Calcium in Calcium 20 MG 20 MG 20 MG Sertraline Sertraline No 1{table QD Sertraline HCl 25 MG HCl 25 MG t} HCl 25 MG Iron 325 Iron 325 No 1{table QD Iron 325 (65 Fe) MG (65 Fe) MG t} (65 Fe) MG Aspirin 81 Aspirin 81 No 1{table QD Aspirin 81 MG MG t} MG Vitamin B Vitamin B No Vitamin B 12 12 12 traZODone traZODone No 1{table QD traZODone HCl 50 MG HCl 50 MG t_at_be HCl 50 MG dtime} Losartan Losartan No 1{table QD Losartan Potassium-H Potassium-H t} Potassium- CTZ 100-25 CTZ 100-25 HCTZ MG MG 100-25 MG buPROPion buPROPion No 1{table QD buPROPion HCl ER (XL) HCl ER (XL) t_in_th HCl ER 150 MG 150 MG e_morni (XL) 150 ng} MG Losartan Losartan No 1{table QD Losartan Potassium-H Potassium-H t} Potassium- CTZ 100-25 CTZ 100-25 HCTZ MG MG 100-25 MG Iron 325 Iron 325 No 1{table QD Iron 325 (65 Fe) MG (65 Fe) MG t} (65 Fe) MG Vitamin C Vitamin C No 1{table QD Vitamin C 100 MG 100 MG t} 100 MG Zinc + Zinc + No Zinc + Vitamin C Vitamin C Vitamin C Magnesium Magnesium No 1{table Magnesium 30 MG 30 MG t_with_ 30 MG a_meal} Potassium Potassium No 1{table Potassium 99 MG 99 MG t} 99 MG Gabapentin Gabapentin No 1{table TID Gabapentin 600 MG 600 MG t} 600 MG tiZANidine tiZANidine No 1{table QD tiZANidine HCl 4 MG HCl 4 MG t_as_ne HCl 4 MG eded} Pantoprazol Pantoprazol No 1{table QD Pantoprazo e Sodium 40 e Sodium 40 t} le Sodium MG MG 40 MG Aspirin 81 Aspirin 81 No 1{table QD Aspirin 81 MG MG t} MG traZODone traZODone No 1{table QD traZODone HCl 50 MG HCl 50 MG t_at_be HCl 50 MG dtime} Metoprolol Metoprolol No Metoprolol Succinate Succinate Succinate ER 25 MG ER 25 MG ER 25 MG Vitamin B Vitamin B No Vitamin B 12 12 12 Atorvastati Atorvastati No Atorvastat n Calcium n Calcium in Calcium 20 MG 20 MG 20 MG Sertraline Sertraline No 1{table QD Sertraline HCl 25 MG HCl 25 MG t} HCl 25 MG Vitamin C Vitamin C No 1{table QD Vitamin C 100 MG 100 MG t} 100 MG buPROPion buPROPion No 1{table QD buPROPion HCl ER (XL) HCl ER (XL) t_in_th HCl ER 150 MG 150 MG e_morni (XL) 150 ng} MG tiZANidine tiZANidine No 1{table QD tiZANidine HCl 4 MG HCl 4 MG t_as_ne HCl 4 MG eded} Pantoprazol Pantoprazol No 1{table QD Pantoprazo e Sodium 40 e Sodium 40 t} le Sodium MG MG 40 MG Zinc + Zinc + No Zinc + Vitamin C Vitamin C Vitamin C Magnesium Magnesium No 1{table Magnesium 30 MG 30 MG t_with_ 30 MG a_meal} Potassium Potassium No 1{table Potassium 99 MG 99 MG t} 99 MG Gabapentin Gabapentin No 1{table TID Gabapentin 600 MG 600 MG t} 600 MG Sertraline Sertraline No 1{table QD Sertraline HCl 25 MG HCl 25 MG t} HCl 25 MG Atorvastati Atorvastati No Atorvastat n Calcium n Calcium in Calcium 20 MG 20 MG 20 MG Aspirin 81 Aspirin 81 No 1{table QD Aspirin 81 MG MG t} MG Iron 325 Iron 325 No 1{table QD Iron 325 (65 Fe) MG (65 Fe) MG t} (65 Fe) MG Metoprolol Metoprolol No Metoprolol Succinate Succinate Succinate ER 25 MG ER 25 MG ER 25 MG Vitamin B Vitamin B No Vitamin B 12 12 12 traZODone traZODone No 1{table QD traZODone HCl 50 MG HCl 50 MG t_at_be HCl 50 MG dtime} Losartan Losartan No 1{table QD Losartan Potassium-H Potassium-H t} Potassium- CTZ 100-25 CTZ 100-25 HCTZ MG MG 100-25 MG Vitamin C Vitamin C No 1{table QD Vitamin C 100 MG 100 MG t} 100 MG buPROPion buPROPion No 1{table QD buPROPion HCl ER (XL) HCl ER (XL) t_in_th HCl ER 150 MG 150 MG e_morni (XL) 150 ng} MG tiZANidine tiZANidine No 1{table QD tiZANidine HCl 4 MG HCl 4 MG t_as_ne HCl 4 MG eded} Pantoprazol Pantoprazol No 1{table QD Pantoprazo e Sodium 40 e Sodium 40 t} le Sodium MG MG 40 MG Zinc + Zinc + No Zinc + Vitamin C Vitamin C Vitamin C Magnesium Magnesium No 1{table Magnesium 30 MG 30 MG t_with_ 30 MG a_meal} Potassium Potassium No 1{table Potassium 99 MG 99 MG t} 99 MG Gabapentin Gabapentin No 1{table TID Gabapentin 600 MG 600 MG t} 600 MG Sertraline Sertraline No 1{table QD Sertraline HCl 25 MG HCl 25 MG t} HCl 25 MG Atorvastati Atorvastati No Atorvastat n Calcium n Calcium in Calcium 20 MG 20 MG 20 MG Aspirin 81 Aspirin 81 No 1{table QD Aspirin 81 MG MG t} MG Iron 325 Iron 325 No 1{table QD Iron 325 (65 Fe) MG (65 Fe) MG t} (65 Fe) MG Metoprolol Metoprolol No Metoprolol Succinate Succinate Succinate ER 25 MG ER 25 MG ER 25 MG Vitamin B Vitamin B No Vitamin B 12 12 12 traZODone traZODone No 1{table QD traZODone HCl 50 MG HCl 50 MG t_at_be HCl 50 MG dtime} Losartan Losartan No 1{table QD Losartan Potassium-H Potassium-H t} Potassium- CTZ 100-25 CTZ 100-25 HCTZ MG MG 100-25 MG buPROPion buPROPion No 1{table QD buPROPion HCl ER (XL) HCl ER (XL) t_in_th HCl ER 150 MG 150 MG e_morni (XL) 150 ng} MG Vitamin C Vitamin C No 1{table QD Vitamin C 100 MG 100 MG t} 100 MG Magnesium Magnesium No 1{table Magnesium 30 MG 30 MG t_with_ 30 MG a_meal} Potassium Potassium No 1{table Potassium 99 MG 99 MG t} 99 MG Atorvastati Atorvastati No Atorvastat n Calcium n Calcium in Calcium 20 MG 20 MG 20 MG Pantoprazol Pantoprazol No 1{table QD Pantoprazo e Sodium 40 e Sodium 40 t} le Sodium MG MG 40 MG Metoprolol Metoprolol No Metoprolol Succinate Succinate Succinate ER 25 MG ER 25 MG ER 25 MG Zinc + Zinc + No Zinc + Vitamin C Vitamin C Vitamin C tiZANidine tiZANidine No 1{table QD tiZANidine HCl 4 MG HCl 4 MG t_as_ne HCl 4 MG eded} Iron 325 Iron 325 No 1{table QD Iron 325 (65 Fe) MG (65 Fe) MG t} (65 Fe) MG Aspirin 81 Aspirin 81 No 1{table QD Aspirin 81 MG MG t} MG traZODone traZODone No 1{table QD traZODone HCl 50 MG HCl 50 MG t_at_be HCl 50 MG dtime} Losartan Losartan No 1{table QD Losartan Potassium-H Potassium-H t} Potassium- CTZ 100-25 CTZ 100-25 HCTZ MG MG 100-25 MG Gabapentin Gabapentin No 1{table TID Gabapentin 600 MG 600 MG t} 600 MG Vitamin B Vitamin B No Vitamin B 12 12 12 Sertraline Sertraline No 1{table QD Sertraline HCl 25 MG HCl 25 MG t} HCl 25 MG Pantoprazol Pantoprazol No 1{table QD Pantoprazo e Sodium 40 e Sodium 40 t} le Sodium MG MG 40 MG buPROPion buPROPion No 1{table QD buPROPion HCl ER (XL) HCl ER (XL) t_in_th HCl ER 150 MG 150 MG e_morni (XL) 150 ng} MG tiZANidine tiZANidine No 1{table QD tiZANidine HCl 4 MG HCl 4 MG t_as_ne HCl 4 MG eded} Iron 325 Iron 325 No 1{table QD Iron 325 (65 Fe) MG (65 Fe) MG t} (65 Fe) MG Atorvastati Atorvastati No Atorvastat n Calcium n Calcium in Calcium 20 MG 20 MG 20 MG Potassium Potassium No 1{table Potassium 99 MG 99 MG t} 99 MG Metoprolol Metoprolol No Metoprolol Succinate Succinate Succinate ER 25 MG ER 25 MG ER 25 MG Losartan Losartan No 1{table QD Losartan Potassium-H Potassium-H t} Potassium- CTZ 100-25 CTZ 100-25 HCTZ MG MG 100-25 MG Zinc + Zinc + No Zinc + Vitamin C Vitamin C Vitamin C Vitamin B Vitamin B No Vitamin B 12 12 12 Sertraline Sertraline No 1{table QD Sertraline HCl 25 MG HCl 25 MG t} HCl 25 MG Magnesium Magnesium No 1{table Magnesium 30 MG 30 MG t_with_ 30 MG a_meal} Aspirin 81 Aspirin 81 No 1{table QD Aspirin 81 MG MG t} MG Gabapentin Gabapentin No 1{table TID Gabapentin 600 MG 600 MG t} 600 MG traZODone traZODone No 1{table QD traZODone HCl 50 MG HCl 50 MG t_at_be HCl 50 MG dtime} Vitamin C Vitamin C No 1{table QD Vitamin C 100 MG 100 MG t} 100 MG Pantoprazol Pantoprazol No 1{table QD Pantoprazo e Sodium 40 e Sodium 40 t} le Sodium MG MG 40 MG Sertraline Sertraline No 1{table QD Sertraline HCl 25 MG HCl 25 MG t} HCl 25 MG tiZANidine tiZANidine No 1{table QD tiZANidine HCl 4 MG HCl 4 MG t_as_ne HCl 4 MG eded} Potassium Potassium No 1{table Potassium 99 MG 99 MG t} 99 MG traZODone traZODone No 1{table QD traZODone HCl 50 MG HCl 50 MG t_at_be HCl 50 MG dtime} Atorvastati Atorvastati No Atorvastat n Calcium n Calcium in Calcium 20 MG 20 MG 20 MG Gabapentin Gabapentin No 1{table TID Gabapentin 600 MG 600 MG t} 600 MG Losartan Losartan No 1{table QD Losartan Potassium-H Potassium-H t} Potassium- CTZ 100-25 CTZ 100-25 HCTZ MG MG 100-25 MG Zinc + Zinc + No Zinc + Vitamin C Vitamin C Vitamin C Iron 325 Iron 325 No 1{table QD Iron 325 (65 Fe) MG (65 Fe) MG t} (65 Fe) MG Vitamin C Vitamin C No 1{table QD Vitamin C 100 MG 100 MG t} 100 MG Magnesium Magnesium No 1{table Magnesium 30 MG 30 MG t_with_ 30 MG a_meal} Aspirin 81 Aspirin 81 No 1{table QD Aspirin 81 MG MG t} MG Metoprolol Metoprolol No 1{table QD Metoprolol Succinate Succinate t} Succinate ER 25 MG ER 25 MG ER 25 MG Vitamin B Vitamin B No Vitamin B 12 12 12 buPROPion buPROPion No 1{table QD buPROPion HCl ER (XL) HCl ER (XL) t_in_th HCl ER 150 MG 150 MG e_morni (XL) 150 ng} MG Vitamin C Vitamin C No 1{table QD Vitamin C 100 MG 100 MG t} 100 MG buPROPion buPROPion No 1{table QD buPROPion HCl ER (XL) HCl ER (XL) t_in_th HCl ER 150 MG 150 MG e_morni (XL) 150 ng} MG Vitamin B Vitamin B No Vitamin B 12 12 12 Gabapentin Gabapentin No 1{table TID Gabapentin 600 MG 600 MG t} 600 MG Pantoprazol Pantoprazol No 1{table QD Pantoprazo e Sodium 40 e Sodium 40 t} le Sodium MG MG 40 MG Iron 325 Iron 325 No 1{table QD Iron 325 (65 Fe) MG (65 Fe) MG t} (65 Fe) MG Potassium Potassium No 1{table Potassium 99 MG 99 MG t} 99 MG tiZANidine tiZANidine No 1{table QD tiZANidine HCl 4 MG HCl 4 MG t_as_ne HCl 4 MG eded} Aspirin 81 Aspirin 81 No 1{table QD Aspirin 81 MG MG t} MG Metoprolol Metoprolol No 1{table QD Metoprolol Succinate Succinate t} Succinate ER 25 MG ER 25 MG ER 25 MG Losartan Losartan No 1{table QD Losartan Potassium-H Potassium-H t} Potassium- CTZ 100-25 CTZ 100-25 HCTZ MG MG 100-25 MG Zinc + Zinc + No Zinc + Vitamin C Vitamin C Vitamin C Sertraline Sertraline No 1{table QD Sertraline HCl 25 MG HCl 25 MG t} HCl 25 MG Atorvastati Atorvastati No 1{table QD Atorvastat n Calcium n Calcium t} in Calcium 20 MG 20 MG 20 MG Magnesium Magnesium No 1{table Magnesium 30 MG 30 MG t_with_ 30 MG a_meal} traZODone traZODone No 1{table QD traZODone HCl 50 MG HCl 50 MG t_at_be HCl 50 MG dtime} Gabapentin Gabapentin No 1{table TID Gabapentin 600 MG 600 MG t} 600 MG Vitamin C Vitamin C No 1{table QD Vitamin C 100 MG 100 MG t} 100 MG Metoprolol Metoprolol No 1{table QD Metoprolol Succinate Succinate t} Succinate ER 25 MG ER 25 MG ER 25 MG Losartan Losartan No 1{table QD Losartan Potassium-H Potassium-H t} Potassium- CTZ 100-25 CTZ 100-25 HCTZ MG MG 100-25 MG Potassium Potassium No 1{table Potassium 99 MG 99 MG t} 99 MG Pantoprazol Pantoprazol No 1{table QD Pantoprazo e Sodium 40 e Sodium 40 t} le Sodium MG MG 40 MG Iron 325 Iron 325 No 1{table QD Iron 325 (65 Fe) MG (65 Fe) MG t} (65 Fe) MG Atorvastati Atorvastati No 1{table QD Atorvastat n Calcium n Calcium t} in Calcium 20 MG 20 MG 20 MG Aspirin 81 Aspirin 81 No 1{table QD Aspirin 81 MG MG t} MG Magnesium Magnesium No 1{table Magnesium 30 MG 30 MG t_with_ 30 MG a_meal} traZODone traZODone No 1{table QD traZODone HCl 50 MG HCl 50 MG t_at_be HCl 50 MG dtime} Vitamin B Vitamin B No Vitamin B 12 12 12 Zinc + Zinc + No Zinc + Vitamin C Vitamin C Vitamin C tiZANidine tiZANidine No 1{table QD tiZANidine HCl 4 MG HCl 4 MG t_as_ne HCl 4 MG eded} Sertraline Sertraline No 1{table QD Sertraline HCl 25 MG HCl 25 MG t} HCl 25 MG buPROPion buPROPion No 1{table QD buPROPion HCl ER (XL) HCl ER (XL) t_in_th HCl ER 150 MG 150 MG e_morni (XL) 150 ng} MG Gabapentin Gabapentin No 1{table TID Gabapentin 600 MG 600 MG t} 600 MG Vitamin C Vitamin C No 1{table QD Vitamin C 100 MG 100 MG t} 100 MG tiZANidine tiZANidine No 1{table QD tiZANidine HCl 4 MG HCl 4 MG t_as_ne HCl 4 MG eded} Atorvastati Atorvastati No 1{table QD Atorvastat n Calcium n Calcium t} in Calcium 20 MG 20 MG 20 MG Metoprolol Metoprolol No 1{table QD Metoprolol Succinate Succinate t} Succinate ER 25 MG ER 25 MG ER 25 MG Aspirin 81 Aspirin 81 No 1{table QD Aspirin 81 MG MG t} MG Vitamin B Vitamin B No Vitamin B 12 12 12 Potassium Potassium No 1{table Potassium 99 MG 99 MG t} 99 MG Iron 325 Iron 325 No 1{table QD Iron 325 (65 Fe) MG (65 Fe) MG t} (65 Fe) MG Zinc + Zinc + No Zinc + Vitamin C Vitamin C Vitamin C Losartan Losartan No 1{table QD Losartan Potassium-H Potassium-H t} Potassium- CTZ 100-25 CTZ 100-25 HCTZ MG MG 100-25 MG Sertraline Sertraline No 1{table QD Sertraline HCl 50 MG HCl 50 MG t} HCl 50 MG Pantoprazol Pantoprazol No 1{table QD Pantoprazo e Sodium 40 e Sodium 40 t} le Sodium MG MG 40 MG Magnesium Magnesium No 1{table Magnesium 30 MG 30 MG t_with_ 30 MG a_meal} traZODone traZODone No 1{table QD traZODone HCl 50 MG HCl 50 MG t_at_be HCl 50 MG dtime} buPROPion buPROPion No 1{table QD buPROPion HCl ER (XL) HCl ER (XL) t_in_th HCl ER 150 MG 150 MG e_morni (XL) 150 ng} MG Gabapentin Gabapentin No 1{table TID Gabapentin 600 MG 600 MG t} 600 MG Vitamin C Vitamin C No 1{table QD Vitamin C 100 MG 100 MG t} 100 MG tiZANidine tiZANidine No 1{table QD tiZANidine HCl 4 MG HCl 4 MG t_as_ne HCl 4 MG eded} Atorvastati Atorvastati No 1{table QD Atorvastat n Calcium n Calcium t} in Calcium 20 MG 20 MG 20 MG Metoprolol Metoprolol No 1{table QD Metoprolol Succinate Succinate t} Succinate ER 25 MG ER 25 MG ER 25 MG Aspirin 81 Aspirin 81 No 1{table QD Aspirin 81 MG MG t} MG Vitamin B Vitamin B No Vitamin B 12 12 12 Potassium Potassium No 1{table Potassium 99 MG 99 MG t} 99 MG Iron 325 Iron 325 No 1{table QD Iron 325 (65 Fe) MG (65 Fe) MG t} (65 Fe) MG Zinc + Zinc + No Zinc + Vitamin C Vitamin C Vitamin C Losartan Losartan No 1{table QD Losartan Potassium-H Potassium-H t} Potassium- CTZ 100-25 CTZ 100-25 HCTZ MG MG 100-25 MG Sertraline Sertraline No 1{table QD Sertraline HCl 50 MG HCl 50 MG t} HCl 50 MG Pantoprazol Pantoprazol No 1{table QD Pantoprazo e Sodium 40 e Sodium 40 t} le Sodium MG MG 40 MG Magnesium Magnesium No 1{table Magnesium 30 MG 30 MG t_with_ 30 MG a_meal} traZODone traZODone No 1{table QD traZODone HCl 50 MG HCl 50 MG t_at_be HCl 50 MG dtime} buPROPion buPROPion No 1{table QD buPROPion HCl ER (XL) HCl ER (XL) t_in_th HCl ER 150 MG 150 MG e_morni (XL) 150 ng} MG Losartan Losartan No 1{table QD Losartan Potassium-H Potassium-H t} Potassium- CTZ 100-25 CTZ 100-25 HCTZ MG MG 100-25 MG Aspirin 81 Aspirin 81 No 1{table QD Aspirin 81 MG MG t} MG Potassium Potassium No 1{table Potassium 99 MG 99 MG t} 99 MG Zinc + Zinc + No Zinc + Vitamin C Vitamin C Vitamin C Metoprolol Metoprolol No 1{table QD Metoprolol Succinate Succinate t} Succinate ER 25 MG ER 25 MG ER 25 MG Magnesium Magnesium No 1{table Magnesium 30 MG 30 MG t_with_ 30 MG a_meal} Iron 325 Iron 325 No 1{table QD Iron 325 (65 Fe) MG (65 Fe) MG t} (65 Fe) MG Gabapentin Gabapentin No 1{table TID Gabapentin 600 MG 600 MG t} 600 MG buPROPion buPROPion No 1{table QD buPROPion HCl ER (XL) HCl ER (XL) t_in_th HCl ER 150 MG 150 MG e_morni (XL) 150 ng} MG Vitamin B Vitamin B No Vitamin B 12 12 12 traZODone traZODone No 1{table QD traZODone HCl 50 MG HCl 50 MG t_at_be HCl 50 MG dtime} Atorvastati Atorvastati No 1{table QD Atorvastat n Calcium n Calcium t} in Calcium 20 MG 20 MG 20 MG Sertraline Sertraline No 1{table QD Sertraline HCl 50 MG HCl 50 MG t} HCl 50 MG Pantoprazol Pantoprazol No 1{table QD Pantoprazo e Sodium 40 e Sodium 40 t} le Sodium MG MG 40 MG Vitamin C Vitamin C No 1{table QD Vitamin C 100 MG 100 MG t} 100 MG Losartan Losartan No 1{table QD Losartan Potassium-H Potassium-H t} Potassium- CTZ 100-25 CTZ 100-25 HCTZ MG MG 100-25 MG Aspirin 81 Aspirin 81 No 1{table QD Aspirin 81 MG MG t} MG Potassium Potassium No 1{table Potassium 99 MG 99 MG t} 99 MG Zinc + Zinc + No Zinc + Vitamin C Vitamin C Vitamin C Metoprolol Metoprolol No 1{table QD Metoprolol Succinate Succinate t} Succinate ER 25 MG ER 25 MG ER 25 MG Magnesium Magnesium No 1{table Magnesium 30 MG 30 MG t_with_ 30 MG a_meal} Iron 325 Iron 325 No 1{table QD Iron 325 (65 Fe) MG (65 Fe) MG t} (65 Fe) MG Gabapentin Gabapentin No 1{table TID Gabapentin 600 MG 600 MG t} 600 MG buPROPion buPROPion No 1{table QD buPROPion HCl ER (XL) HCl ER (XL) t_in_th HCl ER 150 MG 150 MG e_morni (XL) 150 ng} MG Vitamin B Vitamin B No Vitamin B 12 12 12 traZODone traZODone No 1{table QD traZODone HCl 50 MG HCl 50 MG t_at_be HCl 50 MG dtime} Atorvastati Atorvastati No 1{table QD Atorvastat n Calcium n Calcium t} in Calcium 20 MG 20 MG 20 MG Sertraline Sertraline No 1{table QD Sertraline HCl 50 MG HCl 50 MG t} HCl 50 MG Pantoprazol Pantoprazol No 1{table QD Pantoprazo e Sodium 40 e Sodium 40 t} le Sodium MG MG 40 MG Vitamin C Vitamin C No 1{table QD Vitamin C 100 MG 100 MG t} 100 MG Iron 325 Iron 325 No 1{table QD Iron 325 (65 Fe) MG (65 Fe) MG t} (65 Fe) MG Losartan Losartan No 1{table QD Losartan Potassium-H Potassium-H t} Potassium- CTZ 100-25 CTZ 100-25 HCTZ MG MG 100-25 MG Vitamin B Vitamin B No Vitamin B 12 12 12 Gabapentin Gabapentin No 1{table TID Gabapentin 600 MG 600 MG t} 600 MG Magnesium Magnesium No 1{table Magnesium 30 MG 30 MG t_with_ 30 MG a_meal} Aspirin 81 Aspirin 81 No 1{table QD Aspirin 81 MG MG t} MG Potassium Potassium No 1{table Potassium 99 MG 99 MG t} 99 MG Vitamin C Vitamin C No 1{table QD Vitamin C 100 MG 100 MG t} 100 MG Pantoprazol Pantoprazol No 1{table QD Pantoprazo e Sodium 40 e Sodium 40 t} le Sodium MG MG 40 MG Metoprolol Metoprolol No 1{table QD Metoprolol Succinate Succinate t} Succinate ER 25 MG ER 25 MG ER 25 MG Atorvastati Atorvastati No 1{table QD Atorvastat n Calcium n Calcium t} in Calcium 20 MG 20 MG 20 MG Sertraline Sertraline No 1{table QD Sertraline HCl 50 MG HCl 50 MG t} HCl 50 MG buPROPion buPROPion No 1{table QD buPROPion HCl ER (XL) HCl ER (XL) t_in_th HCl ER 150 MG 150 MG e_morni (XL) 150 ng} MG Zinc + Zinc + No Zinc + Vitamin C Vitamin C Vitamin C traZODone traZODone No 1{table QD traZODone HCl 50 MG HCl 50 MG t_at_be HCl 50 MG dtime} Magnesium Magnesium No 1{table Magnesium 30 MG 30 MG t_with_ 30 MG a_meal} Iron 325 Iron 325 No 1{table QD Iron 325 (65 Fe) MG (65 Fe) MG t} (65 Fe) MG Gabapentin Gabapentin No 1{table TID Gabapentin 600 MG 600 MG t} 600 MG Vitamin B Vitamin B No Vitamin B 12 12 12 Aspirin 81 Aspirin 81 No 1{table QD Aspirin 81 MG MG t} MG Potassium Potassium No 1{table Potassium 99 MG 99 MG t} 99 MG Vitamin C Vitamin C No 1{table QD Vitamin C 100 MG 100 MG t} 100 MG Pantoprazol Pantoprazol No 1{table QD Pantoprazo e Sodium 40 e Sodium 40 t} le Sodium MG MG 40 MG Metoprolol Metoprolol No 1{table QD Metoprolol Succinate Succinate t} Succinate ER 25 MG ER 25 MG ER 25 MG traZODone traZODone No 1{table QD traZODone HCl 50 MG HCl 50 MG t_at_be HCl 50 MG dtime} Sertraline Sertraline No 1{table QD Sertraline HCl 50 MG HCl 50 MG t} HCl 50 MG Atorvastati Atorvastati No 1{table QD Atorvastat n Calcium n Calcium t} in Calcium 20 MG 20 MG 20 MG buPROPion buPROPion No 1{table QD buPROPion HCl ER (XL) HCl ER (XL) t_in_th HCl ER 150 MG 150 MG e_morni (XL) 150 ng} MG Zinc + Zinc + No Zinc + Vitamin C Vitamin C Vitamin C Losartan Losartan No 1{table QD Losartan Potassium-H Potassium-H t} Potassium- CTZ 100-25 CTZ 100-25 HCTZ MG MG 100-25 MG Vitamin B Vitamin B No Vitamin B 12 12 12 Magnesium Magnesium No 1{table Magnesium 30 MG 30 MG t_with_ 30 MG a_meal} Pantoprazol Pantoprazol No 1{table QD Pantoprazo e Sodium 40 e Sodium 40 t} le Sodium MG MG 40 MG Potassium Potassium No 1{table Potassium 99 MG 99 MG t} 99 MG tiZANidine tiZANidine 2021- No 1{table QD tiZANidine HCl 4 MG HCl 4 MG 12-12 t_as_ne HCl 4 MG 00:00 eded} :00 tiZANidine tiZANidine 2021- No 1{table QD tiZANidine HCl 4 MG HCl 4 MG 12-12 t_as_ne HCl 4 MG 00:00 eded} :00 tiZANidine tiZANidine 2021- No 1{table QD tiZANidine HCl 4 MG HCl 4 MG 12-12 t_as_ne HCl 4 MG 00:00 eded} :00 tiZANidine tiZANidine 2- No 1{table QD tiZANidine HCl 4 MG HCl 4 MG 12-12 t_as_ne HCl 4 MG 00:00 eded} :00 tiZANidine tiZANidine 2- No 1{table QD tiZANidine HCl 4 MG HCl 4 MG 12-12 t_as_ne HCl 4 MG 00:00 eded} :00 tiZANidine tiZANidine 2- No 1{table QD tiZANidine HCl 4 MG HCl 4 MG 12-12 t_as_ne HCl 4 MG 00:00 eded} :00 tiZANidine tiZANidine 2- No 1{table QD tiZANidine HCl 4 MG HCl 4 MG 12-12 t_as_ne HCl 4 MG 00:00 eded} :00 tiZANidine tiZANidine 2- No 1{table QD tiZANidine HCl 4 MG HCl 4 MG 12-12 t_as_ne HCl 4 MG 00:00 eded} :00 tiZANidine tiZANidine 2- No 1{table QD tiZANidine HCl 4 MG HCl 4 MG 12-12 t_as_ne HCl 4 MG 00:00 eded} :00 tiZANidine tiZANidine 2- No 1{table QD tiZANidine HCl 4 MG HCl 4 MG 12-12 t_as_ne HCl 4 MG 00:00 eded} :00 tiZANidine tiZANidine 2- No 1{table QD tiZANidine HCl 4 MG HCl 4 MG 12-12 t_as_ne HCl 4 MG 00:00 eded} :00 tiZANidine tiZANidine 2- No 1{table QD tiZANidine HCl 4 MG HCl 4 MG 12-12 t_as_ne HCl 4 MG 00:00 eded} :00 Immunizations Ordered Immunization Filled Immunization Date Status Commen ts Source Name Name FLUZONE HIGH DOSE FLUZONE HIGH DOSE 2022-07-23 Completed [facility] OVER 65 OVER 65 14:29:00 - [facility] FLUZONE HIGH DOSE FLUZONE HIGH DOSE 2022-07-23 Completed [facility] OVER 65 OVER 65 14:29:00 - [facility] FLUZONE HIGH DOSE FLUZONE HIGH DOSE 2022-07-23 Completed [facility] OVER 65 OVER 65 14:29:00 [facility] FLUZONE HIGH DOSE FLUZONE HIGH DOSE 2022-07-23 Completed [facility] OVER 65 OVER 65 14:29:00 [facility] COVID-19, mRNA, COVID-19, mRNA, 2021-08-03 Completed [facility] LNP-S, PF, 30 mcg/0.3 LNP-S, PF, 30 mcg/0.3 00:00:00 [facility] mL dose mL dose (Getix) (Getix) COVID-19, mRNA, COVID-19, mRNA, 2021-08-03 Completed [facility] LNP-S, PF, 30 mcg/0.3 LNP-S, PF, 30 mcg/0.3 00:00:00 Practice mL dose mL dose ([employer]) ([id number]) Pfizer COVID-19 Pfizer COVID-19 2021-07-29 [facility] 14:55:00 - [facility] Pfizer COVID-19 Pfizer COVID-19 2021-07-29 Completed [facility] 14:55:00 [facility] Pfizer COVID-19 Pfizer COVID-19 2021-07-29 Completed [facility] 14:55:00 [facility] Pfizer COVID-19 Pfizer COVID-19 2021-07-29 Completed [facility] 14:55:00 [facility] Pfizer COVID-19 Pfizer COVID-19 2021-07-29 Completed [facility] 14:55:00 [facility] Pfizer COVID-19 Pfizer COVID-19 2021-07-29 Completed [facility] 14:55:00 [facility] Pfizer COVID-19 Pfizer COVID-19 2021-07-29 Completed [facility] 14:55:00 [facility] Pfizer COVID-19 Pfizer COVID-19 2021-07-29 Completed [facility] 14:55:00 [facility] Pfizer COVID-19 Pfizer COVID-19 2021-07-29 Completed [facility] 14:55:00 - [facility] Pfizer COVID-19 Pfizer COVID-19 2021-07-29 Completed [facility] 14:55:00 [facility] Pfizer COVID-19 Pfizer COVID-19 2021-07-29 Completed [facility] 14:55:00 [facility] Pfizer COVID-19 Pfizer COVID-19 2021-07-29 Completed [facility] 14:55:00 - [facility] Pfizer COVID-19 Pfizer COVID-19 2021-07-29 Completed [facility] 14:55:00 [facility] Pfizer COVID-19 Pfizer COVID-19 2021-07-29 Completed [facility] 14:55:00 [facility] Pfizer COVID-19 Pfizer COVID-19 2021-07-29 Completed [facility] 14:55:00 - [facility] Pfizer COVID-19 Pfizer COVID-19 2021-07-29 Completed [facility] 14:55:00 [facility] Pfizer COVID-19 Pfizer COVID-19 2021-07-29 Completed [facility] 14:55:00 [facility] Pfizer COVID-19 Pfizer COVID-19 2021-07-29 Completed [facility] 14:55:00 [facility] Pfizer COVID-19 Pfizer COVID-19 2021-07-29 Completed [facility] 14:55:00 [facility] Pfizer COVID-19 Pfizer COVID-19 2021-07-29 Completed [facility] 14:55:00 [facility] Pfizer COVID-19 Pfizer COVID-19 2021-07-29 Completed [facility] 14:55:00 [facility] Pfizer COVID-19 Pfizer COVID-19 2021-07-29 Completed [facility] 14:55:00 [facility] Pfizer COVID-19 Pfizer COVID-19 2021-07-29 Completed [facility] 14:55:00 - [facility] Pfizer COVID-19 Pfizer COVID-19 2021-07-29 Completed [facility] 14:55:00 - [facility] Pfizer COVID-19 Pfizer COVID-19 2021-07-29 Completed [facility] 14:55:00 - [facility] Pfizer COVID-19 Pfizer COVID-19 2021-07-29 Completed [facility] 14:55:00 - [facility] Pfizer COVID-19 Pfizer COVID-19 2021-07-29 Completed [facility] 14:55:00 - [facility] Pfizer COVID-19 Pfizer COVID-19 2021-07-29 Completed [facility] 14:55:00 - [facility] Pfizer COVID-19 Pfizer COVID-19 2021-07-29 Completed [facility] 14:55:00 - [facility] FLUZONE HIGH DOSE FLUZONE HIGH DOSE 2021-04-26 Completed [facility] OVER 65 OVER 65 11:35:00 - [facility] FLUZONE HIGH DOSE FLUZONE HIGH DOSE 2021-04-26 Completed [facility] OVER 65 OVER 65 11:35:00 [facility] FLUZONE HIGH DOSE FLUZONE HIGH DOSE 2021-04-26 Completed [facility] OVER 65 OVER 65 11:35:00 [facility] FLUZONE HIGH DOSE FLUZONE HIGH DOSE 2021-04-26 Completed [facility] OVER 65 OVER 65 11:35:00 - [facility] FLUZONE HIGH DOSE FLUZONE HIGH DOSE 2021-04-26 Completed [facility] OVER 65 OVER 65 11:35:00 [facility] FLUZONE HIGH DOSE FLUZONE HIGH DOSE 2021-04-26 Completed [facility] OVER 65 OVER 65 11:35:00 [facility] FLUZONE HIGH DOSE FLUZONE HIGH DOSE 2021-04-26 Completed [facility] OVER 65 OVER 65 11:35:00 [facility] FLUZONE HIGH DOSE FLUZONE HIGH DOSE 2021-04-26 Completed [facility] OVER 65 OVER 65 11:35:00 [facility] FLUZONE HIGH DOSE FLUZONE HIGH DOSE 2021-04-26 Completed [facility] OVER 65 OVER 65 11:35:00 - [facility] FLUZONE HIGH DOSE FLUZONE HIGH DOSE 2021-04-26 Completed [facility] OVER 65 OVER 65 11:35:00 - [facility] FLUZONE HIGH DOSE FLUZONE HIGH DOSE 2021-04-26 Completed [facility] OVER 65 OVER 65 11:35:00 - [facility] FLUZONE HIGH DOSE FLUZONE HIGH DOSE 2021-04-26 Completed [facility] OVER 65 OVER 65 11:35:00 - [facility] FLUZONE HIGH DOSE FLUZONE HIGH DOSE 2021-04-26 Completed [facility] OVER 65 OVER 65 11:35:00 - [facility] FLUZONE HIGH DOSE FLUZONE HIGH DOSE 2021-04-26 Completed [facility] OVER 65 OVER 65 11:35:00 - [facility] FLUZONE HIGH DOSE FLUZONE HIGH DOSE 2021-04-26 Completed [facility] OVER 65 OVER 65 11:35:00 - [facility] FLUZONE HIGH DOSE FLUZONE HIGH DOSE 2021-04-26 Completed [facility] OVER 65 OVER 65 11:35:00 - [facility] FLUZONE HIGH DOSE FLUZONE HIGH DOSE 2021-04-26 Completed [facility] OVER 65 OVER 65 11:35:00 - [facility] FLUZONE HIGH DOSE FLUZONE HIGH DOSE 2021-04-26 Completed [facility] OVER 65 OVER 65 11:35:00 - [facility] FLUZONE HIGH DOSE FLUZONE HIGH DOSE 2021-04-26 Completed [facility] OVER 65 OVER 65 11:35:00 - [facility] FLUZONE HIGH DOSE FLUZONE HIGH DOSE 2021-04-26 Completed [facility] OVER 65 OVER 65 11:35:00 [facility] FLUZONE HIGH DOSE FLUZONE HIGH DOSE 2021-04-26 Completed [facility] OVER 65 OVER 65 11:35:00 - [facility] FLUZONE HIGH DOSE FLUZONE HIGH DOSE 2021-04-26 Completed [facility] OVER 65 OVER 65 11:35:00 [facility] FLUZONE HIGH DOSE FLUZONE HIGH DOSE 2021-04-26 Completed [facility] OVER 65 OVER 65 11:35:00 - [facility] FLUZONE HIGH DOSE FLUZONE HIGH DOSE 2021-04-26 Completed [facility] OVER 65 OVER 65 11:35:00 - [facility] FLUZONE HIGH DOSE FLUZONE HIGH DOSE 2021-04-26 Completed [facility] OVER 65 OVER 65 11:35:00 [facility] FLUZONE HIGH DOSE FLUZONE HIGH DOSE 2021-04-26 Completed [facility] OVER 65 OVER 65 11:35:00 - [facility] FLUZONE HIGH DOSE FLUZONE HIGH DOSE 2021-04-26 Completed [facility] OVER 65 OVER 65 11:35:00 - [facility] FLUZONE HIGH DOSE FLUZONE HIGH DOSE 2021-04-26 Completed [facility] OVER 65 OVER 65 11:35:00 - [facility] FLUZONE HIGH DOSE FLUZONE HIGH DOSE 2021-04-26 Completed [facility] OVER 65 OVER 65 11:35:00 - [facility] FLUZONE HIGH DOSE FLUZONE HIGH DOSE 2021-04-26 Completed [facility] OVER 65 OVER 65 11:35:00 [facility] Pfizer COVID-19 Pfizer COVID-19 2020-11-14 Com[facility] 14:55:00 [facility] Pfizer COVID-19 Pfizer COVID-19 2020-11-14 Com[facility] 14:55:00 [facility] Pfizer COVID-19 Pfizer COVID-19 2020-11-14 Completed [facility] 14:55:00 [facility] Pfizer COVID-19 Pfizer COVID-19 2020-11-14 Completed [facility] 14:55:00 [facility] Pfizer COVID-19 Pfizer COVID-19 2020-11-14 Completed [facility] 14:55:00 [facility] Pfizer COVID-19 Pfizer COVID-19 2020-11-14 Completed [facility] 14:55:00 [facility] Pfizer COVID-19 Pfizer COVID-19 2020-11-14 Completed [facility] 14:55:00 [facility] Pfizer COVID-19 Pfizer COVID-19 2020-11-14 Com[facility] 14:55:00 [facility] Pfizer COVID-19 Pfizer COVID-19 2020-11-14 Com[facility]00 [facility] [facility] COVID-19 Pfizer COVID-19 2020-11-14 Completed [facility]ine Vaccine 14:55:00 [facility] Pfizer COVID-19 Pfizer COVID-19 2020-11-14 Completed [facility] Vaccine 14:55:00 [facility] Pfizer COVID-19 Pfizer COVID-19 2020-11-14 Completed [facility] Vaccine 14:55:00 [facility] Pfizer COVID-19 Pfizer COVID-19 2020-11-14 Completed [facility] Vaccine 14:55:00 [facility] Pfizer COVID-19 Pfizer COVID-19 2020-11-14 Completed [facility] Vaccine 14:55:00 [facility] Pfizer COVID-19 Pfizer COVID-19 2020-11-14 Completed [facility] Vaccine 14:55:00 [facility] Pfizer COVID-19 Pfizer COVID-19 2020-11-14 Completed [facility] Vaccine 14:55:00 [facility] Pfizer COVID-19 Pfizer COVID-19 2020-11-14 Completed [facility] Vaccine 14:55:00 [facility] Pfizer COVID-19 Pfizer COVID-19 2020-11-14 Completed [facility] Vaccine 14:55:00 [facility] Pfizer COVID-19 Pfizer COVID-19 2020-11-14 Completed [facility] Vaccine 14:55:00 [facility] Pfizer COVID-19 Pfizer COVID-19 2020-11-14 Completed [facility] Vaccine 14:55:00 [facility] Pfizer COVID-19 Pfizer COVID-19 2020-11-14 Completed [facility] Vaccine 14:55:00 [facility] Pfizer COVID-19 Pfizer COVID-19 2020-11-14 Completed [facility]ine Vaccine 14:55:00 - [facility] Pfizer COVID-19 Pfizer COVID-19 2020-11-14 Completed [facility] Vaccine Vaccine 14:55:00 [facility] Pfizer COVID-19 Pfizer COVID-19 2020-11-14 Completed [facility]ine Vaccine 14:55:00 [facility] Pfizer COVID-19 Pfizer COVID-19 2020-11-14 Completed [facility]ine Vaccine 14:55:00 [facility] Pfizer COVID-19 Pfizer COVID-19 2020-11-14 Completed [facility]ine Vaccine 14:55:00 [facility] Pfizer COVID-19 Pfizer COVID-19 2020-11-14 Completed [facility]ine Vaccine 14:55:00 [facility] Pfizer COVID-19 Pfizer COVID-19 2020-11-14 Completed [facility] Vaccine 14:55:00 [facility] Pfizer COVID-19 Pfizer COVID-19 2020-11-14 Completed [facility] Vaccine 14:55:00 [facility] COVID-19, mRNA, COVID-19, mRNA, 2020-11-14 [facility]pleted [facility], PF, 30 mcg/0.3 LNP-S, PF, 30 mcg/0.3 00:00:00 Practice mL dose mL dose (Pfizer-BioNTech) (Pfizer-BioNTech) COVID-19, mRNA, COVID-19, mRNA, 2020-11-14 Completed [facility], PF, 30 mcg/0.3 LNP-S, PF, 30 mcg/0.3 00:00:00 Practice mL dose mL dose (Pfizer-BioNTech) (Pfizer-BioNTech) Pfizer COVID-19 Pfizer COVID-19 2020-10-24 Completed [facility]ine Vaccine 14:55:00 [facility] Pfizer COVID-19 Pfizer COVID-19 2020-10-24 Completed [facility] Vaccine 14:55:00 [facility] Pfizer COVID-19 Pfizer COVID-19 2020-10-24 Completed [facility] Vaccine 14:55:00 [facility] Pfizer COVID-19 Pfizer COVID-19 2020-10-24 Completed [facility]ine Vaccine 14:55:00 - [facility] Pfizer COVID-19 Pfizer COVID-19 2020-10-24 Completed [facility] Vaccine Vaccine 14:55:00 [facility] Pfizer COVID-19 Pfizer COVID-19 2020-10-24 Completed [facility] Vaccine 14:55:00 [facility] Pfizer COVID-19 Pfizer COVID-19 2020-10-24 Completed [facility] Vaccine Vaccine 14:55:00 - [facility] Pfizer COVID-19 Pfizer COVID-19 2020-10-24 Completed [facility]ine Vaccine 14:55:00 [facility] Pfizer COVID-19 Pfizer COVID-19 2020-10-24 Completed [facility]ine Vaccine 14:55:00 [facility] Pfizer COVID-19 Pfizer COVID-19 2020-10-24 Completed [facility] Vaccine Vaccine 14:55:00 - [facility] Pfizer COVID-19 Pfizer COVID-19 2020-10-24 Completed [facility]ine Vaccine 14:55:00 [facility] Pfizer COVID-19 Pfizer COVID-19 2020-10-24 Completed [facility]ine Vaccine 14:55:00 [facility] Pfizer COVID-19 Pfizer COVID-19 2020-10-24 Completed [facility]ine Vaccine 14:55:00 [facility] Pfizer COVID-19 Pfizer COVID-19 2020-10-24 Completed [facility]ine Vaccine 14:55:00 [facility] Pfizer COVID-19 Pfizer COVID-19 2020-10-24 Completed [facility] Vaccine Vaccine 14:55:00 [facility] Pfizer COVID-19 Pfizer COVID-19 2020-10-24 Completed [facility]ine Vaccine 14:55:00 [facility] Pfizer COVID-19 Pfizer COVID-19 2020-10-24 Completed [facility] Vaccine 14:55:00 [facility] Pfizer COVID-19 Pfizer COVID-19 2020-10-24 Completed [facility] Vaccine Vaccine 14:55:[address] - [facility] Pfizer COVID-19 Pfizer COVID-19 2020-10-24 Completed [facility] Vaccine Vaccine 14:55:00 [facility] Pfizer COVID-19 Pfizer COVID-19 2020-10-24 Completed [facility] Vaccine Vaccine 14:55:00 [facility] Pfizer COVID-19 Pfizer COVID-19 2020-10-24 Completed [facility] Vaccine Vaccine 14:55:00 [facility] Pfizer COVID-19 Pfizer COVID-19 2020-10-24 Completed [facility]ine Vaccine 14:55:00 [facility] Pfizer COVID-19 Pfizer COVID-19 2020-10-24 Completed [facility]ine Vaccine 14:55:00 [facility] Pfizer COVID-19 Pfizer COVID-19 2020-10-24 Completed [facility]ine Vaccine 14:55:00 [facility] Pfizer COVID-19 Pfizer COVID-19 2020-10-24 Completed [facility] Vaccine Vaccine 14:55:00 [facility] Pfizer COVID-19 Pfizer COVID-19 2020-10-24 Completed [facility] Vaccine Vaccine 14:55:00 [facility] Pfizer COVID-19 Pfizer COVID-19 2020-10-24 Completed [facility] Vaccine Vaccine 14:55:00 [facility] Pfizer COVID-19 Pfizer COVID-19 2020-10-24 Completed [facility]ine Vaccine 14:55:00 [facility] Pfizer COVID-19 Pfizer COVID-19 2020-10-24 Completed [facility] Vaccine 14:55:00 [facility] COVID-19, mRNA, COVID-19, mRNA, 2020-10-24 [facility]pleted [facility], PF, 30 mcg/0.3 LNP-S, PF, 30 mcg/0.3 00:00:00 Practice mL dose mL dose (Getix) (Getix) COVID-19, mRNA, COVID-19, mRNA, 2020-10-24 Completed [facility], PF, 30 mcg/0.3 LNP-S, PF, 30 mcg/0.3 00:00:00 Practice mL dose mL dose (QazzowBioNTinZair) (DogSpot-BioNTinZair) influenza, high dose influenza, high dose 2019-05-10 Completed [facility] seasonal seasonal 12:12:10 Practice influenza, high dose influenza, high dose 2019-05-10 Completed [facility] seasonal seasonal 12:12:10 Practice pneumococcal pneumococcal 2018-06-04 Completed [facility] polysaccharide PPV23 polysaccharide PPV23 13:57:29 Practice pneumococcal pneumococcal 2018-06-04 Completed [facility] polysaccharide PPV23 polysaccharide PPV23 13:57:29 Practice influenza, high dose influenza, high dose 2018-06-04 Completed [facility] seasonal seasonal 13:56:47 Practice influenza, high dose influenza, high dose 2018-06-04 Completed [facility] seasonal seasonal 13:56:47 Practice influenza, influenza, 2017-04-30 Completed [facility] injectable, injectable, 00:00:00 Practice quadrivalent quadrivalent influenza, influenza, 2017-04-30 Completed [facility] injectable, injectable, 00:00:00 Practice quadrivalent quadrivalent influenza, high dose influenza, high dose 2017-04-22 Completed [facility] seasonal seasonal 16:47:02 Practice influenza, high dose influenza, high dose 2017-04-22 Completed [facility] seasonal seasonal 16:47:02 Practice pneumococcal pneumococcal 2015-08-18 Completed [facility] randy conjugate PCV 13 conjugate PCV 13 00:00:00 Pr actice pneumococcal pneumococcal 2015-08-18 Completed [facility] conjugate PCV 13 conjugate PCV 13 00:00:00 Pr actice pneumococcal pneumococcal 2009-08-18 Completed [facility] polysaccharide PPV23 polysaccharide PPV23 00:00:00 Practice pneumococcal pneumococcal 2009-08-18 Completed [facility] randy polysaccharide PPV23 polysaccharide PPV23 00:00:00 Practice Vital Signs Vital Name Observation Time Observation Value Comments Source height 2022-06-27 13:40:00 61 [in_i] [facility] weight 2022-06-27 13:40:00 134 [lb_av] [facility] temperature 2022-06-27 13:40:00 98.0 [degF] [facility] bmi 2022-06-27 13:40:00 25.32 kg/m2 [facility] oximetry 2022-06-27 13:40:00 99 % [facility] respiratory rate 2022-06-27 13:40:00 16 /min [facility] blood pressure 2022-06-27 13:40:00 134 mm[Hg] [facility] - systolic [facility] blood pressure 2022-06-27 13:40:00 78 mm[Hg] [facility] - diastolic [facility] height 2022-05-06 11:40:00 61 [in_i] Common S [facility] weight 2022-05-06 11:40:00 133.4 [lb_av] [facility] temperature 2022-05-06 11:40:00 97.9 [degF] Common [facility] bmi 2022-05-06 11:40:00 25.2 kg/m2 [facility] oximetry 2022-05-06 11:40:00 100 % Common [facility] respiratory rate 2022-05-06 11:40:00 16 /min [facility] blood pressure 2022-05-06 11:40:00 128 mm[Hg] [facility] - systolic [facility] blood pressure 2022-05-06 11:40:00 64 mm[Hg] [facility] - diastolic [facility] height 2022-04-30 11:40:00 61 [in_i] [facility] weight 2022-04-30 11:40:00 135.2 [lb_av] Common [facility] temperature 2022-04-30 11:40:00 97.3 [degF] [facility] bmi 2022-04-30 11:40:00 25.54 kg/m2 Common S [facility] oximetry 2022-04-30 11:40:00 98 % Common [facility] respiratory rate 2022-04-30 11:40:00 16 /min [facility] blood pressure 2022-04-30 11:40:00 132 mm[Hg] [facility] - systolic [facility] blood pressure 2022-04-30 11:40:00 70 mm[Hg] [facility] - diastolic [facility] height 2022-04-08 13:00:00 61 [in_i] [facility] weight 2022-04-08 13:00:00 135.6 [lb_av] [facility] temperature 2022-04-08 13:00:00 98.2 [degF] [facility] bmi 2022-04-08 13:00:00 25.62 kg/m2 [facility] oximetry 2022-04-08 13:00:00 98 % [facility] respiratory rate 2022-04-08 13:00:00 16 /min [facility] BP Diastolic 2022-04-02 00:00:00 71 mm[Hg] [facility] Practice Height 2022-04-02 00:00:00 63 [in_i] [facility] Practice BMI (Body Mass 2022-04-02 00:00:00 24.4 kg/m2 [facility]) Practice BP Systolic 2022-04-02 00:00:00 119 mm[Hg] [facility] Practice Body Weight 2022-04-02 00:00:00 138 [lb_av] [facility] Practice height 2022-03-15 14:40:00 61 [in_i] [facility] weight 2022-03-15 14:40:00 135.8 [lb_av] [facility] temperature 2022-03-15 14:40:00 98.2 [degF] [facility] bmi 2022-03-15 14:40:00 25.66 kg/m2 [facility] oximetry 2022-03-15 14:40:00 97 % [facility] respiratory rate 2022-03-15 14:40:00 16 /min [facility] blood pressure 2022-03-15 14:40:00 136 mm[Hg] [facility] blood pressure 2022-03-15 14:40:00 64 mm[Hg] [facility] - diastolic [facility] height 2022-01-08 15:00:00 61 [in_i] [facility] weight 2022-01-08 15:00:00 141.2 [lb_av] [facility] temperature 2022-01-08 15:00:00 98.4 [degF] Common S [facility] bmi 2022-01-08 15:00:00 26.68 kg/m2 [facility] oximetry 2022-01-08 15:00:00 95 % [facility] respiratory rate 2022-01-08 15:00:00 16 /min [facility] blood pressure 2022-01-08 15:00:00 139 mm[Hg] Common [facility] - systolic [facility] blood pressure 2022-01-08 15:00:00 68 mm[Hg] [facility] - diastolic [facility] height 2021-09-12 15:40:00 61 [in_i] [facility] weight 2021-09-12 15:40:00 138.8 [lb_av] [facility] temperature 2021-09-12 15:40:00 98.7 [degF] [facility] bmi 2021-09-12 15:40:00 26.22 kg/m2 [facility] height 2021-08-31 11:20:00 61 [in_i] Common S [facility] weight 2021-08-31 11:20:00 138.8 [lb_av] [facility] temperature 2021-08-31 11:20:00 97.0 [degF] [facility] bmi 2021-08-31 11:20:00 26.22 kg/m2 Common [facility] height 2021-08-29 11:00:00 61 [in_i] Common [facility] weight 2021-08-29 11:00:00 138.8 [lb_av] Common [facility] temperature 2021-08-29 11:00:00 97.9 [degF] Common [facility] bmi 2021-08-29 11:00:00 26.22 kg/m2 Common [facility] oximetry 2021-08-29 11:00:00 97 % [facility] respiratory rate 2021-08-29 11:00:00 16 /min [facility] blood pressure 2021-08-29 11:00:00 128 mm[Hg] Common [facility] - systolic [facility] blood pressure 2021-08-29 11:00:00 72 mm[Hg] [facility] - diastolic [facility] Height 2021-08-28 00:00:00 63 [in_i] [facility] BMI (Body Mass 2021-08-28 00:00:00 25.2 kg/m2 [facility] Body Weight 2021-08-28 00:00:00 142 [lb_av] [facility] BP Diastolic 2021-06-06 00:00:00 76 mm[Hg] [facility] Height 2021-06-06 00:00:00 63 [in_i] [facility] BMI (Body Mass 2021-06-06 00:00:00 25.4 kg/m2 [facility] e Family Index) Practice BP Systolic 2021-06-06 00:00:00 120 mm[Hg] [facility] Body Weight 2021-06-06 00:00:00 143.6 [lb_av] [facility] Height 2019-12-30 00:00:00 63 [in_i] [facility] BP Diastolic 2019-09-22 00:00:00 84 mm[Hg] [facility] Height 2019-09-22 00:00:00 63 [in_i] [facility] BMI (Body Mass 2019-09-22 00:00:00 26.7 kg/m2 [facility] BP Systolic 2019-09-22 00:00:00 136 mm[Hg] [facility] Body Weight 2019-09-22 00:00:00 151 [lb_av] [facility] BP Diastolic 2019-09-09 00:00:00 42 mm[Hg] [facility] Height 2019-09-09 00:00:00 63 [in_i] [facility] BMI (Body Mass 2019-09-09 00:00:00 26.6 kg/m2 [facility] BP Systolic 2019-09-09 00:00:00 138 mm[Hg] [facility] Body Weight 2019-09-09 00:00:00 150 [lb_av] [facility] BP Diastolic 2019-05-10 00:00:00 80 mm[Hg] [facility] Height 2019-05-10 00:00:00 63 [in_i] [facility] BMI (Body Mass 2019-05-10 00:00:00 26 kg/m2 [facility] BP Systolic 2019-05-10 00:00:00 150 mm[Hg] [facility] Body Weight 2019-05-10 00:00:00 147 [lb_av] [facility] BP Diastolic 2019-02-12 00:00:00 80 mm[Hg] [facility] Height 2019-02-12 00:00:00 64 [in_i] [facility] BMI (Body Mass 2019-02-12 00:00:00 25.2 kg/m2 [facility] BP Systolic 2019-02-12 00:00:00 124 mm[Hg] [facility] Body Weight 2019-02-12 00:00:00 146.9 [lb_av] [facility] BP Diastolic 2018-12-28 00:00:00 76 mm[Hg] [facility] Height 2018-12-28 00:00:00 64 [in_i] [facility] BMI (Body Mass 2018-12-28 00:00:00 24.8 kg/m2 [facility] BP Systolic 2018-12-28 00:00:00 120 mm[Hg] [facility] Body Weight 2018-12-28 00:00:00 144.6 [lb_av] [facility] BP Diastolic 2018-12-15 00:00:00 62 mm[Hg] [facility] Height 2018-12-15 00:00:00 64 [in_i] [facility] BMI (Body Mass 2018-12-15 00:00:00 25 kg/m2 [facility] BP Systolic 2018-12-15 00:00:00 114 mm[Hg] [facility] Body Weight 2018-12-15 00:00:00 145.8 [lb_av] [facility] BP Diastolic 2018-10-28 00:00:00 70 mm[Hg] [facility] Height 2018-10-28 00:00:00 64 [in_i] [facility] BMI (Body Mass 2018-10-28 00:00:00 25.9 kg/m2 [facility] e Family Index) Practice BP Systolic 2018-10-28 00:00:00 130 mm[Hg] [facility] Body Weight 2018-10-28 00:00:00 151 [lb_av] [facility] BP Diastolic 2018-09-23 00:00:00 78 mm[Hg] [facility] Height 2018-09-23 00:00:00 64 [in_i] [facility] BMI (Body Mass 2018-09-23 00:00:00 25.9 kg/m2 [facility] BP Systolic 2018-09-23 00:00:00 122 mm[Hg] [facility] Body Weight 2018-09-23 00:00:00 151 [lb_av] [facility] BP Systolic 2019-05-11 10:58:00 169 mm[Hg] [facility] BP Diastolic 2019-05-11 10:58:00 91 mm[Hg] [facility] Height 2019-05-11 10:58:00 63 [in_us] [facility] Weight 2019-05-11 10:58:00 147 [lb_av] [facility] Body Mass Index 2019-05-11 10:58:00 26.04 kg/m2 [facility] Calculated Heart Rate 2019-05-11 10:58:00 71 /min [facility] BP Systolic 2018-06-05 11:35:00 129 mm[Hg] [facility] BP Diastolic 2018-06-05 11:35:00 75 mm[Hg] [facility] Height 2018-06-05 11:35:00 63.5 [in_us] [facility] Weight 2018-06-05 11:35:00 159 [lb_av] [facility] Body Mass Index 2018-06-05 11:35:00 27.72 kg/m2 [facility] Calculated Temperature 2018-06-05 11:35:00 98.3 [degF] [facility] Heart Rate 2018-06-05 11:35:00 90 /min [facility] Procedures Procedure Date / Time Performing Clinician Source Performed MAMMO, screening, digital, 2019-09-09 00:00:00 V [facility] Family bilateral Practice bone density 2019-09-09 00:00:00 [facility] MR Tib Fib wo contrast 2019-03-23 00:00:[facility] [id number] MAMMO, screening, digital, 2019-02-12 00:00:00 V [facility] bilateral Practice bone density 2019-02-12 00:00:00 [facility] Practice X-RAY OF CHEST 2 VIEW 2018-12-28 00:00:00 [facility] US, duplex, venous, lower 2018-09-23 00:00:00 [facility] extremity Practice Post Op Promise 29 Survey 2018-07-30 00:00:00 [facility] GI Stomach UGI w/KUB air 2018-06-05 00:00:00 [facility] cont and Esophagus Ba swallow [id number] [U] XRAY HIP UNILATERAL 2018-04-22 00:00:00 [facility] MIN 2 VWS RIGHT [id number] Hip Surgery 2017-04-28 00:00:00 [facility] Practice Colonoscopy 2017-03-18 00:00:00 [facility] Practice Orthopedic Surgery 2016-08-18 00:00:00 [facility] Practice Egd 2015-08-18 00:00:00 [facility] Practice Gastrointestinal Surgery 2012-08-18 00:00:00 [facility] Cholecystectomy (Gall 2012-08-18 00:00:00 [facility] Bladder Removal) Practice Appendectomy 2006-08-18 00:00:00 [facility] History of [facility]olecystectomy [facility] Breast [facility] Arthroscopic Surgery [facility] Practice Delivery [facility] Plan of Care Planned Activity Planned Date Details Comments Source Future Scheduled Test 2023-02-05 COVID-19 VACCINE (#1) [facility] 08:25:14 [code = COVID-19 Hospital VACCINE (#1)] Future Scheduled Test 2023-02-05 SHINGLES VACCINES (1 [facility] 08:25:14 of 2) [code = SHINGLES Hospi jaylon VACCINES (1 of 2)] Future Scheduled Test 2023-02-05 INFLUENZA VACCINE [facility] 08:25:14 [code = INFLUENZA Hospital VACCINE] Diagnostic Test 2021-08-28 iron + TIBC + [facility] [place] Pending 00:00:00 ferritin, serum [code Practi ce = iron + TIBC + ferritin, serum] Diagnostic Test 2021-08-28 celiac disease [facility] randy Pending 00:00:00 comprehensive panel, Practic e serum [code = celiac disease comprehensive panel, serum] Diagnostic Test 2021-08-28 H pylori urea breath [facility] Pending 00:00:00 test, co2 infrared Practice [code = H pylori urea breath test, co2 infrared] Instructions [facility] Encounters Start End Encounter Admission Attending Care Care Encounter Source Date/Time Date/Time Type Type Clinicians Facility Department ID 2023-01-10 Outpatient [facility], STLMLC STLMLC [id number] Common 10:33:01 Yoon [id number] [facility] 2023-01-03 Outpatient [facility], STLMLC STLMLC [id number] Common 13:21:00 Yoon [id number] [facility] 2022-10-29 Outpatient [facility], STLMLC STLMLC [id number] Common 07:29:00 Yoon [address] [facility] 2022-10-01 Outpatient [facility], STLMLC STLMLC [id number] Common 14:02:00 Yoon [id number] [facility] 2022-06-26 Outpatient [facility], STLMLC STLMLC [id number] Common 07:37:00 Yoon [id number] [facility] 2022-05-31 Outpatient [facility], STLMLC STLMLC [id number] Common 13:16:01 Yoon [id number] [facility] 2022-05-10 Outpatient [facility], STLMLC STLMLC [id number] Common 09:47:03 Yoon [facility] 2022-05-03 Outpatient [facility], STLMLC STLMLC [id number] Common 14:20:01 Yoon [facility] 2022-05-02 Outpatient [facility], STLMLC STLMLC [id number] Common 11:22:03 Yoon [facility] 2022-04-25 Outpatient [facility], STLMLC STLMLC [id number] Common 16:22:02 Yoon [facility] 2022-04-10 Outpatient [facility], STLMLC STLMLC [id number] Common 14:40:01 Yoon [facility] 2022-04-04 Outpatient [facility], STLMLC STLMLC [id number] Common 11:05:05 Yoon [facility] 2021-11-23 Outpatient [facility], STLMLC STLMLC [id number] Common 09:27:03 Yoon [facility] 2021-09-13 Outpatient 3 [id number] [id number] ENCTY 12:44:50 0820 2021-09-13 Outpatient 3 [id number] ENCTY REF [id number] ENCTY 12:43:14 0817 2021-09-13 Outpatient 3 [id number] ENCTY REF [id number] ENCTY 12:42:57 0816 2021-09-12 Outpatient [facility], STLMLC STLMLC [id number] Common 14:40:03 Yoon [facility] 2021-09-12 Outpatient [facility], STLMLC STLMLC [id number] Common 14:39:19 Yoon [facility] 2021-09-12 Outpatient [facility], STLMLC STLMLC [id number] Common 14:34:20 Yoon [facility] 2023-01-01 2023-01-01 Outpatient Kvng-Will [facility] [id number] [facility] 00:00:00 00:00:00 is_T [id number] Family Practic e 2022-08-09 2022-08-09 (TEL) STLMLC STLMLC [id number] [facility] 00:00:00 00:00:00 [facility] 2022-08-02 2022-08-02 (TEL) STLMLC STLMLC [id number] [facility] 00:00:00 00:00:00 [facility] 2022-07-23 2022-07-23 OFFICE STLMLC STLMLC [id number] [facility] 00:00:00 00:00:00 VISIT [facility] PT [facility] [place] [facility] 2022-07-16 2022-07-16 (TEL) STLMLC STLMLC [id number] Co mmon 00:00:00 00:00:00 [facility] [place] [facility] 2022-07-05 2022-07-05 (TEL) STLMLC STLMLC [id number] Co mmon 00:00:00 00:00:00 [facility] 2022-06-27 2022-06-27 OFFICE STLMLC STLMLC [id number] Co mmon 00:00:00 00:00:00 VISIT EST Spir it PT LEVEL 3 [facility] 2022-06-12 2022-06-12 (TEL) STLMLC STLMLC [id number] Co mmon 00:00:00 00:00:00 [facility] 2022-06-09 2022-06-09 Outpatient OLS_PENNING AOSM AOSM [id number] [place] 00:00:00 00:00:00 TON_MARVI [id number] Orth ope dic Sports Medicin e 2022-05-23 2022-05-23 Outpatient Kvng-Will VFP VFP [id number] [place] 00:00:00 00:00:00 is_T [id number] Family Practic e 2022-05-21 2022-05-21 (TEL) STLMLC STLMLC [id number] Co mmon 00:00:00 00:00:00 [facility] 2022-05-16 2022-05-16 (TEL) STLMLC STLMLC [id number] Co mmon 00:00:00 00:00:00 [facility] 2022-05-06 2022-05-06 OFFICE STLMLC STLMLC [id number] Co mmon 00:00:00 00:00:00 VISIT EST Spir it PT LEVEL 3 - [facility] 2022-04-30 2022-04-30 OFFICE STLMLC STLMLC [id number] Co mmon 00:00:00 00:00:00 VISIT EST Spir it PT LEVEL 3 - [facility] 2022-04-30 2022-04-30 (TEL) STLMLC STLMLC [id number] Co mmon 00:00:00 00:00:00 [facility] 2022-04-10 2022-04-10 (TEL) STLMLC STLMLC [id number] Co mmon 00:00:00 00:00:00 [facility] 2022-04-08 2022-04-08 Outpatient Kvng-Will VFP VFP [id number] 00:00:00 00:00:00 is_T [id number] Family Practic e 2022-04-08 2022-04-08 OFFICE STLMLC STLMLC [id number] Co mmon 00:00:00 00:00:00 VISIT [facility] PT - [facility] LEVEL 4 [facility] 2022-04-06 2022-04-06 Outpatient Kvng-Will VFP VFP [id number] 00:00:00 00:00:00 is_T [id number] Family Practic e 2022-04-02 2022-04-02 Outpatient Kvng-Will VFP VFP [id number] 00:00:00 00:00:00 is_T [id number] Family Practic e 2022-04-02 2022-04-02 Randee VFP [place] - [id number] V illage 00:00:00 00:00:00 Kvng-Sanju [facility] Corona jenkins MD: [place] [id number] [place] - e [place] [facility] [place] [facility], [address], [place] [address] , Ph. 2022-04-01 2022-04-01 Outpatient Kvng-Will VFP VFP [id number] 00:00:00 00:00:00 is_T [id number] Family Practic e 2022-03-15 2022-03-15 OFFICE STLMLC STLMLC [id number] Co mmon 00:00:00 00:00:00 VISIT Spirit ESTAB PT - CHI LEVEL 2 [facility] 2022-03-13 2022-03-13 (TEL) STLMLC STLMLC [id number] Co mmon 00:00:00 00:00:00 [facility] 2022-03-11 2022-03-11 Outpatient VFP VFP [id number] [facility] 12:50:00 12:50:00 [id number] Family Practic e 2022-03-11 2022-03-11 Outpatient Carter_C VFP VFP [id number] [facility] 00:00:00 00:00:00 [id number] Family Practic e 2022-03-04 2022-03-04 (TEL) STLMLC STLMLC [id number] Co mmon 00:00:00 00:00:00 [facility] 2022-01-22 2022-01-22 (TEL) STLMLC STLMLC [id number] Co mmon 00:00:00 00:00:00 [facility] 2022-01-08 2022-01-08 OFFICE STLMLC STLMLC [id number] Co mmon 00:00:00 00:00:00 VISIT EST Spir it PT LEVEL 3 - [facility] 2021-12-31 2021-12-31 (TEL) STLMLC STLMLC [id number] Co mmon 00:00:00 00:00:00 [facility] 2021-12-31 2021-12-31 (TEL) STLMLC STLMLC [id number] Co mmon 00:00:00 00:00:00 [facility] 2021-12-17 2021-12-17 (TEL) STLMLC STLMLC [id number] Co mmon 00:00:00 00:00:00 [facility] 2021-12-12 2021-12-12 (TEL) STLMLC STLMLC [id number] Co mmon 00:00:00 00:00:00 Spirit - CHI [facility] 2021-11-16 2021-11-16 (TEL) STLMLC STLMLC [id number] Co mmon 00:00:00 00:00:00 Spirit - [facility] 2021-11-11 2021-11-11 Outpatient OLS_PENNING AOSM AOSM [phone] [place] 00:00:00 00:00:00 TON_MARVI 99182 Orth ope dic Sports Medicin e 2021-10-01 2021-10-01 (TEL) STLMLC STLMLC [id number] Co mmon 00:00:00 00:00:00 Spirit - [facility]I [facility] 2021-09-12 2021-09-12 SUB ANNUAL STLMLC STLC [id number] Common 00:00:00 00:00:00 MCR Spirit WELLNESS - CHI VISIT [facility] 2021-09-01 2021-09-01 Outpatient Carter_C VFP VFP [id number] - [facility] 09:26:00 09:26:00 Family Practic e 2021-08-31 2021-08-31 OFFICE STLMLC STLC [id number] Co mmon 00:00:00 00:00:00 VISIT Spirit ESTAB PT - CHI LEVEL 1 [facility] 2021-08-29 2021-08-29 OFFICE STLMLC STLC [id number] Co mmon 00:00:00 00:00:00 VISIT NEW Spir it PT LEVEL 4 - [facility] 2021-08-28 2021-08-28 Outpatient Carter_C VFP VFP [id number] - [facility] 11:18:00 11:18:00 Family Practic e 2021-08-28 2021-08-28 Caity K VFP [place] - [id number] [facility] 00:00:00 00:00:00 Shavon Ch MD: [id number] Medical - Prac tic [facility]NATY_Tonya [address] [address] , Ph. 2021-06-16 2021-06-16 Outpatient Carter_C VFP VFP [id number] - [facility] 05:17:00 05:17:00 [id number] Family Practic e 2021-06-16 2021-06-16 Outpatient VFP VFP [id number] [facility] 05:17:00 05:17:00 Family Practic e 2021-06-11 2021-06-11 Outpatient Carter_C VFP VFP [id number] - [facility] 04:30:00 04:30:00 [id number] Family Practic e 2021-06-08 2021-06-08 Outpatient Carter_C VFP VFP [id number] - [facility] 04:04:00 04:04:00 [id number] Family Practic e 2021-06-06 2021-06-06 Outpatient Carter_C VFP VFP [id number] - [facility] 01:09:00 01:09:00 [id number] Family Practic e 2021-06-06 2021-06-06 Verito B VFP [place] - [id number] [facility] 00:00:00 00:00:00 Milton [facility] Family MD: [id number] Medical - Prac tic JALEN CARRASQUILLO_NATY_Tonya [facility] [address], [place] [address] , Ph. 2021-03-17 2021-03-17 Outpatient Carter_C VFP VFP [id number] - [facility] 05:01:00 05:01:00 [id number] Family Practic e 2021-03-17 2021-03-17 Outpatient Carter_C VFP VFP [id number] - [facility] 05:01:00 05:01:00 [id number] Family Practic e 2021-03-17 2021-03-17 Outpatient VFP VFP [id number]- [facility] 05:01:00 05:01:00 [id number] Family Practic e 2021-03-17 2021-03-17 Outpatient Carter_C VFP VFP [id number] [facility] 05:01:00 05:01:00 [id number] Family Practic e 2020-11-23 2020-11-23 Outpatient Carter_C VFP VFP [id number] -[id number] [facility] 03:19:00 03:19:00 [id number] Family Practic e 2020-11-23 2020-11-23 Outpatient Carter_C VFP VFP [id number] - [facility] 03:19:00 03:19:00 [id number] Family Practic e 2020-05-17 2020-05-17 Outpatient Carter_C VFP VFP [id number] [facility] 01:15:00 01:15:00 [id number] Family Practic e 2020-01-03 2020-01-03 Outpatient Carter_C VFP VFP [id number] -202 [facility] 05:36:00 05:36:00 [id number] Family Practic e 2019-12-30 2019-12-30 Outpatient Carter_C VFP VFP [id number] [facility] 03:14:00 03:14:00 [id number] Family Practic e 2019-12-30 2019-12-30 Mary VFP [place] - [id number] [facility] 00:00:00 00:00:00 [facility] Shirleyoneydahi, Medical - Pract jacqueline BRITO: [id number] VM_HOU_Suga e [facility], [facility] [address], [place] [address] , Ph. 2019-11-25 2019-11-25 Outpatient Carter_C VFP VFP [id number] [facility] 03:51:00 03:51:00 [id number] Family Practic e 2019-11-16 2019-11-16 Outpatient Carter_C VFP VFP [id number] -[id number] [facility] 09:26:00 09:26:00 [id number] Family Practic e 2019-11-05 2019-11-05 Outpatient Carter_C VFP VFP [id number] [facility] 05:54:00 05:54:00 [id number] Family Practic e 2019-11-05 2019-11-05 Jalen VFP [place] - [id number] V illage 00:00:00 00:00:00 Antonio [facility] MD [place]: Medical - Prac tic [address] [address] VM_HOU_Suga e [facility] [address], [place] [address] , Ph. 2019-09-27 2019-09-27 Outpatient Carter_C VFP VFP [id number] [facility] 04:09:00 04:09:00 [id number] Family Practic e 2019-09-22 2019-09-22 Outpatient Carter_C VFP VFP [id number] [facility] 10:12:00 10:12:00 [id number] Family Practic e 2019-09-22 2019-09-22 Verito Dykes VFP [place] - [id number] [facility] 00:00:00 00:00:00 MiltonShavon MD: [id number] Medical - Prac tic VM_HOU_S[place] [facility] [address], [place] [address] , Ph. 2019-09-14 2019-09-14 Outpatient Carter_C VFP VFP [id number] [facility] 10:54:00 10:54:00 [id number] Family Practic e 2019-09-14 2019-09-14 Outpatient VFP VFP [id number] [facility] 10:54:00 10:54:00 [id number] Family Practic e 2019-09-09 2019-09-09 Outpatient Carter_C VFP VFP [id number] [facility] 01:32:00 01:32:00 [id number] Family Practic e 2019-09-09 2019-09-09 Verito Dykes VFP [place] - [id number] [facility] 00:00:00 00:00:00 Shavon Rose MD: [id number] Medical - Prac tic VM_HOU_S[place] [facility] [address], [place] [address] , Ph. 2019-09-03 2019-09-03 Appointmen ANA CEVALLOS Orthopedics [id number] [place] 16:00:00 16:00:00 t; ANGELICA CEVALLOS - [facility] COURTNEY, M.D. ans M.D. 2019-08-02 2019-08-02 Appointmen ANA CEVALLOS [facility]opedics [id number] [place] 14:45:00 14:45:00 t; ANGELICA CEVALLOS - [facility] COURTNEY, M.D. ans M.D. 2019-06-23 2019-06-23 Outpatient VFP VFP [id number] [facility] 08:57:00 08:57:00 [id number] Family Practic e 2019-05-11 2019-05-11 Appointmen ANA DENT Orthopedics [id number] [place] 10:30:00 10:30:00 t; CHAPARRITA DENT - [facility] WILLIAM, M.D. ans M.D. 2019-05-10 2019-05-10 Verito Dykes [facility] - [id number] [facility] 00:00:00 00:00:00 MiltonShavon wilson MD: [id number] Family Noemy [facility] [address], [place] [address] , Ph. 2019-05-03 2019-05-03 Appointmen [facility] [id number] [place] 11:00:00 11:00:00 t; ANGELICA CEVALLOS Phy sici COURTNEY, M.D. ans M.D. 2019-03-23 2019-03-23 [facility]men [facility] [id number] [place] 10:00:00 10:00:00 t; CHAPARRITA DENT [facility] jered CHEATHAM M.D. [facility] 2 POD betzaida Plata 2 2019-02-24 2019-02-24 [facility] [id number] [place] 14:00:00 14:00:00 t; NATY MARSHALL, [facility] Kimberly ALFONSO P.A. 2019-02-12 2019-02-12 Verito Dykes [facility] - [id number] [facility] 00:00:00 00:00:00 Shavon Rose MD: [id number] Family Noemy [facility] [address], [place] [address] , Ph. 2019-02-10 2019-02-10 [facility] [id number] [place] 13:00:00 13:00:00 t; NATY MARSHALL [facility] Kimberly Weems P.A. 2018-12-28 2018-12-28 Erin O [facility] [place] - [id number] [facility] 00:00:00 00:00:00 Shavon Rowley MD: [id number] Family Jaelyn Lu Practice - e [address], [facility] [place] [address] , Ph. 2018-12-15 2018-12-15 Erin O [facility] - [id number] [facility] 00:00:00 00:00:00 Shavon Rowley MD: [id number] Family [facility], Practice - e [address], [place], [place] [address] , Ph. 2018-10-28 2018-10-28 Dre Padilla [facility] [place] - [id number] V illage 00:00:00 00:00:00 Omayra, Shavon chavarria MD: [id number] [facility], [facility] [address], [place] [address] , Ph. 2018-09-23 2018-09-23 Verito B [facility] [place] - [id number] [facility] 00:00:00 00:00:00 Shavon Rose MD: [id number] [facility], [facility] [address], [place] [address] , Ph. 2018-08-28 2018-08-28 [facility] [id number] [place] 10:15:00 10:15:00 t; NATY MARSHALL, Orthopedics Physici Kimberly ALFONSO ans P.A. 2018-07-17 2018-07-17 [facility]ointmen [facility] [id number] [place] 10:00:00 10:00:00 t; NATY MARSHALL Orthopedics PhysicAmari Summers.ASteve ans P.A. 2018-07-02 2018-07-02 Appointmen [facility] [id number] [place] 13:30:00 13:30:00 t; NATY MARSHALL, Orthopedics PhysicKimberly Summers ans P.A. 2018-06-22 2018-06-22 Appointmen [facility] [id number] [place] 08:00:00 08:00:00 t; Maria De Jesus AVILA i, M.D. ans STEVEN, M.D. 2018-06-05 2018-06-05 [facility] [id number] 22 [place] 11:00:00 11:00:00 t; PAUL CHOWDARY, Surgery P reinaldo MILLER M.D. Specialty betzaida Plata 2018-05-27 2018-05-27 Appointmen [place] [id number] [place] 13:15:00 13:15:00 t; NATY MARSHALL, Orthopedics PhysicKimberly Summers P.ASteve 2018-04-22 2018-04-22 [facility] [id number] [place] 13:15:00 13:15:00 t; NATY MARSHALL, Orthopedics PhysicKimberly Summers P.ASteve 2018-04-17 2018-04-17 [facility] [id number] [place] 11:15:00 11:15:00 t; Maria De Jesus AVILA i, M.D. ans STEVEN, M.D. 2017-09-17 2017-09-17 [facility] TEE, [facility] [id number] [place] 13:30:00 13:30:00 t; Maria De Jesus AVILA i, M.D. ans STEVEN, M.D. 2017-09-12 2017-09-12 [facility] [id number] [place] 10:15:00 10:15:00 t; Maria De Jesus AVILA i, M.D. ans STEVEN, M.D. 2017-07-18 2017-07-18 [facility] TEE, [facility] [id number] [place] 11:15:00 11:15:00 t; Maria De Jesus AVILA i, M.D. ans STEVEN, M.D. 2017-06-04 2017-06-04 [facility] TEE, [facility] [id number] [place] 11:00:00 11:00:00 t; Maria De Jesus AVILA i, M.D. ans STEVEN, M.D. 2017-05-27 2017-05-27 [facility] [id number] [place] 11:15:00 11:15:00 t; ANGELICA CEVALLOS Phy sici COURTNEY, M.D. ans M.D. 2017-05-23 2017-05-23 [facility] [id number] 2 [place] 10:45:00 10:45:00 t; NATY MARSHALL Phy sici JEFFREY, P.A. ans P.ASteve 2017-05-09 2017-05-09 [facility] [id number] [place] 10:45:00 10:45:00 t; NATY MARSHALL Phy sici JEFFREY, P.A. ans P.A. 2017-05-02 2017-05-02 [facility] [id number] 2 [place] 10:00:00 10:00:00 t; NATY MARSHALL Phy sici JEFFREY, P.A. ans P.A. 2017-04-28 2017-04-28 [facility] [id number] [place] 08:00:00 08:00:00 t; Maria De Jesus AVILA i, M.D. ans STEVEN, M.D. 2017-03-20 2017-03-20 [facility] TEE, [facility] [id number] [place] 14:30:00 14:30:00 t; Maria De Jesus AVILA i, M.D. ans STEVEN, M.D. 2017-02-26 2017-02-26 [facility] TEE, [facility] [id number] [place] 09:00:00 09:00:00 t; Maria De Jesus AVILA i, M.D. ans STEVEN, M.D. 2017-02-14 2017-02-14 [facility] TEE, [facility] UTP [id number] [place] 10:30:00 10:30:00 t; Maria De Jesus AVILA i, M.D. ans STEVEN, M.D. 2017-02-12 2017-02-12 [facility] TEE, [facility] [id number] [place] 10:00:00 10:00:00 t; Maria De Jesus AVILA i, M.D. ans STEVEN, M.D. 2016-12-18 2016-12-18 [facility] U[facility] [id number] [place] 14:15:00 14:15:00 t; NATY MARSHALL Phy sici JEFFREY, P.A. ans P.A. 2016-11-28 2016-11-28 [facility] UTP [id number] [place] 13:15:00 13:15:00 t; NATY MARSHALL Phy sici JEFFREY, P.A. ans P.A. 2016-11-13 2016-11-13 [facility] TEE, [facility] UTP [id number] [place] 16:15:00 16:15:00 t; Maria De Jesus AVILA i, M.D. ans STEVEN, M.D. 2016-10-17 2016-10-17 App[facility]men [facility] UTP [id number] 5 [place] 15:30:00 15:30:00 t; NATY MARSHALL Phy sici JEFFREY, P.A. ans P.A. 2016-09-19 2016-09-19 Appointmen TEE, [facility] UTP [id number] [place] 14:00:00 14:00:00 t; Maria De Jesus AVILA i, M.D. ans STEVEN, M.D. Results Test Description Test Time Test Comments Results Result Comments Source Tissue transglutaminase IgA + Gliadin peptides IgA and IgG 2 00:00:00 panel - Serum Test Item Value Reference Range Interpretation Comme nts interpretation (test code = interpretation) see note tissue transglutaminase Ab, IgA (test code = tissue <1.0 transglutaminase Ab, IgA) immunoglobulin A (test code = immunoglobulin A) 264 mg/dL 70-320 [facility] + ferritin, [id number] 00:00:00 Test Item Value Reference Range Interpretation Comments iron, total (test code = 127 mcg/dL 45-160 iron, total) iron binding capacity (test 291 mcg/dL (calc) 250-450 code = iron binding capacity) % saturation (test code = % 44 % (calc) 16-45 saturation) ferritin (test code = 275 NG/mL 16-288 ferritin) [facility] [Presence] in Stomach by urea breath [id number] 00:00:00 Test Item Value Reference Range Interpretation Comments helicobacter pylori, urea breath not detected not detected test (test code = helicobacter pylori, urea breath test) [facility] [Mass/volume] in Serum or [id number] 00:00:00 Test Item Value Reference Range Interpretation Comments phosphate ( phosphorus) (test 3.4 mg/dL 2.1-4.3 code = phosphate ( phosphorus)) [facility]Magnesium [Mass/volume] in Serum or [id number] 00:00:00 Test Item Value Reference Range Interpretation Comments magnesium (test code = magnesium) 1.6 mg/dL 1.5-2.5 [facility]Lipid 1996 panel - Serum or [id number] 00:00:00 Test Item Value Reference Range Interpretation Comments cholesterol, total 192 mg/dL <200 (test code = cholesterol, total) HDL cholesterol (test 38 mg/dL See_Comment L [Auto mated code = HDL message] [facility] cholesterol) which generated this result transmitted reference range : > or = 50. The reference range was not used to interpret this result as normal/abnormal . triglycerides (test 183 mg/dL <150 H code = triglycerides) Cholesterol in LDL 124 mg/dL H [Mass/volume] in Serum (calc) or Plasma (test code = 2089-1) chol/HDLC ratio (test 5.1 (calc) <5.0 H code = chol/HDLC ratio) non HDL cholesterol 154 mg/dL <130 H (test code = non HDL (calc) cholesterol) [facility]Comprehensive [facility] 2000 panel - Serum or Plasma 2021-08-15 00:00:00 Test Item Value Reference Range Interpretation Comments glucose (test code = 93 mg/dL 65-139 glucose) urea nitrogen (BUN) 16 mg/dL 7-25 (test code = urea nitrogen (BUN)) creatinine (test 1.14 mg/dL 0.60-0.93 H code = creatinine) eGFR non-afr. 46 See_Comment L [Automated me ssage] sri lankan (test code mL/min/1.73m2 The s tem which = eGFR non-afr. generated th is sri lankan) result transmit joshua reference range : > or = 60. The reference range was not used to interpret this result as normal/abnormal . eGFR 54 See_Comment L [Automated mes timmy] sri lankan (test code mL/min/1.73m2 The s tem which = eGFR generated thi s sri lankan) result transmit joshua reference range : > or = 60. The reference range was not used to interpret this result as normal/abnormal . BUN/creatinine ratio 14 (calc) 6-22 (test code = BUN/creatinine ratio) sodium (test code = 139 mmol/L 135-146 sodium) potassium (test code 3.7 mmol/L 3.5-5.3 = potassium) chloride (test code 100 mmol/L 98-110 = chloride) carbon dioxide (test 29 mmol/L 20-32 code = carbon dioxide) calcium (test code = 9.9 mg/dL 8.6-10.4 calcium) protein, total (test 6.6 g/dL 6.1-8.1 code = protein, total) albumin (test code = 3.9 g/dL 3.6-5.1 albumin) globulin (test code 2.7 g/dL 1.9-3.7 = globulin) (calc) albumin/globulin 1.4 (calc) 1.0-2.5 ratio (test code = albumin/globulin ratio) bilirubin, total 0.3 mg/dL 0.2-1.2 (test code = bilirubin, total) alkaline phosphatase 75 U/L 37-153 (test code = alkaline phosphatase) AST (test code = 20 U/L 10-35 AST) ALT (test code = 14 U/L 6-29 ALT) [facility] Auto Differential panel - [id number] 00:00:00 Test Item Value Reference Range Interpretation Comments white blood cell count (test 6.6 thousand/uL 3.8-10.8 code = white blood cell count) red blood cell count (test 3.83 million/uL 3.80-5.10 code = red blood cell count) hemoglobin (test code = 11.2 g/dL 11.7-15.5 L hemoglobin) hematocrit (test code = 34.8 % 35.0-45.0 L hematocrit) MCV (test code = MCV) 90.9 fL 80.0-100.0 MCH (test code = MCH) 29.2 pg 27.0-33.0 MCHC (test code = MCHC) 32.2 g/dL 32.0-36.0 RDW (test code = RDW) 13.8 % 11.0-15.0 platelet count (test code = 292 thousand/uL 140-400 platelet count) MPV (test code = MPV) 10.4 fL 7.5-12.5 absolute neutrophils (test 3835 cells/uL 5726-5518 code = absolute neutrophils) absolute lymphocytes (test 1848 cells/uL 850-3900 code = absolute lymphocytes) absolute monocytes (test code 686 cells/uL 200-950 = absolute monocytes) absolute eosinophils (test 172 cells/uL 15-500 code = absolute eosinophils) absolute basophils (test code 59 cells/uL 0-200 = absolute basophils) neutrophils (test code = 58.1 % neutrophils) lymphocytes (test code = 28.0 % lymphocytes) monocytes (test code = 10.4 % monocytes) eosinophils (test code = 2.6 % eosinophils) basophils (test code = 0.9 % basophils) [facility] HospitalThyrotropin [Units/volume] in Serum or [id number] 00:00:00 Test Item Value Reference Range Interpretation Comments TSH (test code = TSH) 3.80 mIU/L 0.40-4.50 [facility] HospitalCobalamin (Vitamin B12) [Mass/volume] in Serum or Plasma 2021-08-15 00:00:00 Test Item Value Reference Range Interpretation Comments vitamin B12 (test code = vitamin 376 pg/mL 200-1100 B12) [facility] HospitalParathyrin.intact [Mass/volume] in Serum or Plasma 2021-08-15 00:00:00 Test Item Value Reference Range Interpretation Comments parathyroid hormone, intact (test 32 pg/mL 14-64 code = parathyroid hormone, intact) [facility] HospitalEzziovoy55-Ercdocefiicqox D3+25-Hydroxyvitamin D2 [Mass/volume] in Serum or [id number] 00:00:00 Test Item Value Reference Range Interpretation Comments vitamin D,25-oh,total,ia (test code 53 NG/mL 30-100 = vitamin D,25-oh,total,ia) [facility] HospitalPhosph[facility] [Mass/volume] in Serum or [id number] 00:00:00 Test Item Value Reference Range Interpretation Comments phosphate ( phosphorus) (test 3.4 mg/dL 2.1-4.3 code = phosphate ( phosphorus)) [facility]Magnesium [Mass/volume] in Serum or [id number] 00:00:00 Test Item Value Reference Range Interpretation Comments magnesium (test code = magnesium) 1.6 mg/dL 1.5-2.5 [facility] 1996 [facility] - Serum or [id number] 00:00:00 Test Item Value Reference Range Interpretation Comments cholesterol, total 192 mg/dL <200 (test code = cholesterol, total) HDL cholesterol (test 38 mg/dL See_Comment L [Auto mated code = HDL message] The sy stem cholesterol) which generated this result transmitted reference range : > or = 50. The reference range was not used to interpret this result as normal/abnormal . triglycerides (test 183 mg/dL <150 H code = triglycerides) Cholesterol in LDL 124 mg/dL H [Mass/volume] in Serum (calc) or Plasma (test code = 2089-1) chol/HDLC ratio (test 5.1 (calc) <5.0 H code = chol/HDLC ratio) non HDL cholesterol 154 mg/dL <130 H (test code = non HDL (calc) cholesterol) [facility] - Serum or Plasma 2021-08-15 00:00:00 Test Item Value Reference Range Interpretation Comments glucose (test code = 93 mg/dL 65-139 glucose) urea nitrogen (BUN) 16 mg/dL 7-25 (test code = urea nitrogen (BUN)) creatinine (test 1.14 mg/dL 0.60-0.93 H code = creatinine) eGFR non-afr. 46 See_Comment L [Automated me ssage] [place] (test code mL/min/1.73m2 The sys tem which = eGFR non-afr. generated th is sri lankan) result transmit joshua reference range : > or = 60. The reference range was not used to interpret this result as normal/abnormal . eGFR 54 See_Comment L [Automated mes timmy] sri lankan (test code mL/min/1.73m2 The sys tem which = eGFR generated thi s sri lankan) result transmit joshua reference range : > or = 60. The reference range was not used to interpret this result as normal/abnormal . BUN/creatinine ratio 14 (calc) 6-22 (test code = BUN/creatinine ratio) sodium (test code = 139 mmol/L 135-146 sodium) potassium (test code 3.7 mmol/L 3.5-5.3 = potassium) chloride (test code 100 mmol/L 98-110 = chloride) carbon dioxide (test 29 mmol/L 20-32 code = carbon dioxide) calcium (test code = 9.9 mg/dL 8.6-10.4 calcium) protein, total (test 6.6 g/dL 6.1-8.1 code = protein, total) albumin (test code = 3.9 g/dL 3.6-5.1 albumin) globulin (test code 2.7 g/dL 1.9-3.7 = globulin) (calc) albumin/globulin 1.4 (calc) 1.0-2.5 ratio (test code = albumin/globulin ratio) bilirubin, total 0.3 mg/dL 0.2-1.2 (test code = bilirubin, total) alkaline phosphatase 75 U/L 37-153 (test code = alkaline phosphatase) AST (test code = 20 U/L 10-35 AST) ALT (test code = 14 U/L 6-29 ALT) [facility] - [id number] 00:00:00 Test Item Value Reference Range Interpretation Comments white blood cell count (test 6.6 thousand/uL 3.8-10.8 code = white blood cell count) red blood cell count (test 3.83 million/uL 3.80-5.10 code = red blood cell count) hemoglobin (test code = 11.2 g/dL 11.7-15.5 L hemoglobin) hematocrit (test code = 34.8 % 35.0-45.0 L hematocrit) MCV (test code = MCV) 90.9 fL 80.0-100.0 MCH (test code = MCH) 29.2 pg 27.0-33.0 MCHC (test code = MCHC) 32.2 g/dL 32.0-36.0 RDW (test code = RDW) 13.8 % 11.0-15.0 platelet count (test code = 292 thousand/uL 140-400 platelet count) MPV (test code = MPV) 10.4 fL 7.5-12.5 absolute neutrophils (test 3835 cells/uL 9634-7977 code = absolute neutrophils) absolute lymphocytes (test 1848 cells/uL 850-3900 code = absolute lymphocytes) absolute monocytes (test code 686 cells/uL 200-950 = absolute monocytes) absolute eosinophils (test 172 cells/uL 15-500 code = absolute eosinophils) absolute basophils (test code 59 cells/uL 0-200 = absolute basophils) neutrophils (test code = 58.1 % neutrophils) lymphocytes (test code = 28.0 % lymphocytes) monocytes (test code = 10.4 % monocytes) eosinophils (test code = 2.6 % eosinophils) basophils (test code = 0.9 % basophils) [facility]yrotropin [Units/volume] in Serum or [id number] 00:00:00 Test Item Value Reference Range Interpretation Comments TSH (test code = TSH) 3.80 mIU/L 0.40-4.50 [facility]obalamin (Vitamin B12) [Mass/volume] in Serum or Plasma 2021-08-15 00:00:00 Test Item Value Reference Range Interpretation Comments vitamin B12 (test code = vitamin 376 pg/mL 200-1100 B12) [facility].intact [Mass/volume] in Serum or Plasma 2021-08-15 00:00:00 Test Item Value Reference Range Interpretation Comments parathyroid hormone, intact (test 32 pg/mL -64 code = parathyroid hormone, intact) [facility] HospitalKvataubx94-Hsypjqjcnttjqh D3+25-Hydroxyvitamin D2 [Mass/volume] in Serum or [id number] 00:00:00 Test Item Value Reference Range Interpretation Comments vitamin D,25-oh,total,ia (test code 53 NG/mL 30-100 = vitamin D,25-oh,total,ia) [facility]album[facility]/Creatinine [Mass Ratio] in [id number] 17:35:00 Test Item Value Reference Range Interpretation Comments microalbumin random urine 13 ug/mL (test code = microalbumin random urine) creatinine random urine (test 166.6 mg/dL 20.0-320.0 code = creatinine random urine) microalbumin/creatinine 8 mcg/mg creat (random urine) ratio calculated (test code = microalbumin/creatinine (random urine) ratio calculated) [facility].intact [Mass/volume] in Serum or Plasma 2019-09-10 15:04:00 Test Item Value Reference Range Interpretation Comments parathyroid hormone, intact (test 24 pg/mL 64 code = parathyroid hormone, intact) [facility] + TIBC + ferritin, [id number] 10:37:00 Test Item Value Reference Range Interpretation Comments ferritin (test code = ferritin) 290.36 NG/mL 4.63-204.00 H iron, total (test code = iron, 86 mcg/dL 45-160 total) transferrin (test code = 231 mg/dL 173-360 transferrin) total iron binding capacity 330 mcg/dL 250-450 (calculated) (test code = total iron binding capacity (calculated)) % saturation (test code = % 26.0 % 11.0-50.0 saturation) [facility] 2000 panel - Serum or Plasma 2019-09-10 08:35:00 Test Item Value Reference Range Interpretation Comments ALT (test code = ALT) 14 U/L 0-55 AST (test code = AST) 18 U/L 5-34 BUN (test code = BUN) 22.4 mg/dL 9.8-25.0 alk phos (test code = alk 69 unit/L 40-150 phos) glucose (test code = 87 mg/dL 70-99 glucose) albumin (test code = 3.8 g/dL 3.4-5.1 albumin) creatinine (test code = 1.05 mg/dL 0.57-1.11 creatinine) eGFR non- 51 mL/min/1.73m2 A (test code = eGFR non-) total bilirubin (test code = 0.2 mg/dL 0.2-1.2 total bilirubin) eGFR - >60 (test code = eGFR - ) sodium (test code = sodium) 140 mEq/L 135-145 potassium (test code = 4.3 mEq/L 3.5-5.1 potassium) chloride (test code = 101 mmol/L 98-110 chloride) total protein (test code = 7.0 g/dL 6.1-8.2 total protein) calcium (test code = 9.8 mg/dL 8.6-10.4 calcium) CO2 (test code = CO2) 25.3 mmol/L 20.0-32.0 anion gap (test code = anion 14 calc gap) [facility]id 1995 panel - Serum or [id number] 08:35:00 Test Item Value Reference Range Interpretation Comments HDL (test code = HDL) 44 mg/dL L triglyceride (test code = 116 mg/dL 0-150 triglyceride) VLDL (calculated) (test code = VLDL 23 mg/dL (calculated)) cholesterol/HDL ratio (test code = 4.0 mg/dL cholesterol/HDL ratio) non-HDL cholesterol (calculated) 134 mg/dL 0-160 (test code = non-HDL cholesterol (calculated)) cholesterol (test code = 178 mg/dL 0-200 cholesterol) Cholesterol in LDL [Mass/volume] in 111 mg/dL 0-130 Serum or Plasma (test code = 2089-1) [facility] HospitalLgszuhjz35-Yhonqrwdszrcgu D [Mass/volume] in Serum or Plasma 2019-09-10 08:35:00 Test Item Value Reference Range Interpretation Comments vitamin D 25OH (test code = 69.5 NG/mL 30.0-96.0 vitamin D 25OH) [facility] HospitalHemoglobin A1c/Hemoglobin.total in [id number] 17:11:00 Test Item Value Reference Range Interpretation Comments Hemoglobin A1c/Hemoglobin.total in 5.6 % 1.0-5.7 Blood (test code = 4548-4) average blood glucose (test code = 114 mg/dL average blood glucose) [facility] Auto Differential panel - [id number] 16:34:00 Test Item Value Reference Range Interpretation Comments WBC (test code = WBC) 6.61 x10*3/?L 3.98-10.04 RBC (test code = RBC) 4.00 10*12/L 3.93-5.22 hemoglobin (test code = 11.80 g/dL 11.20-15.70 hemoglobin) hematocrit (test code = 37.3 % 34.1-44.9 hematocrit) MCV (test code = MCV) 93.3 fL 80.0-100.0 MCH (test code = MCH) 29.5 pg 25.6-32.2 MCHC (test code = MCHC) 31.6 g/dL 32.2-35.5 L RDW-SD (test code = RDW-SD) 48.6 fL 36.4-46.3 H platelet count (test code = 367.0 k/uL 182.0-369.0 platelet count) MPV (test code = MPV) 10.9 fL 7.5-11.5 neut% (test code = neut%) 65.3 % 34.0-71.1 lymph% (test code = lymph%) 23.8 % 19.3-51.7 mon% (test code = mon%) 8.8 % 4.7-12.5 eos% (test code = eos%) 1.8 % 0.7-5.8 baso% (test code = baso%) 0.3 % 0.1-1.2 neut# (test code = neut#) 4.3 x10*3/?L 1.6-6.1 lymph# (test code = lymph#) 1.6 x10*3/?L 1.2-3.7 mon# (test code = mon#) 0.6 x10*3/?L 0.2-0.9 eos# (test code = eos#) 0.12 x10*3/?L 0.04-0.36 baso# (test code = baso#) 0.02 x10*3/?L 0.01-0.08 [facility][U] XR SHOULDER MIN 2 VWS [id number] 14:56:00 Images acquired, not reported on this accession number.[facility][U] XRAY TIBIA FIBULA 2 VWS LEFT [id number] 10:44:00Images acquired, not reported on this accession number.[facility][U] XRAY HIP UNILATERAL MIN 2 VWS RIGHT [id number] 14:51:00Images acquired, not reported on this accession number. [facility] Auto Differential panel - [id number] 01:51:00 Test Item Value Reference Range Interpretation Comments white blood cell count (test 6.0 thousand/uL 3.8-10.8 code = white blood cell count) red blood cell count (test 4.36 million/uL 3.80-5.10 code = red blood cell count) hemoglobin (test code = 12.2 g/dL 11.7-15.5 hemoglobin) hematocrit (test code = 38.5 % 35.0-45.0 hematocrit) MCV (test code = MCV) 88.3 fL 80.0-100.0 MCH (test code = MCH) 28.0 pg 27.0-33.0 MCHC (test code = MCHC) 31.7 g/dL 32.0-36.0 L RDW (test code = RDW) 14.5 % 11.0-15.0 platelet count (test code = 298 thousand/uL 140-400 platelet count) MPV (test code = MPV) 11.5 fL 7.5-12.5 absolute neutrophils (test 3966 cells/uL 0506-1048 code = absolute neutrophils) absolute lymphocytes (test 1470 cells/uL 850-3900 code = absolute lymphocytes) absolute monocytes (test code 456 cells/uL 200-950 = absolute monocytes) absolute eosinophils (test 78 cells/uL 15-500 code = absolute eosinophils) absolute basophils (test code 30 cells/uL 0-200 = absolute basophils) neutrophils (test code = 66.1 % neutrophils) lymphocytes (test code = 24.5 % lymphocytes) monocytes (test code = 7.6 % monocytes) eosinophils (test code = 1.3 % eosinophils) basophils (test code = 0.5 % basophils) [facility][U] XRAY KNEE 3 VWS LEFT [id number] 10:20:00Images acquired, not reported on this accession number.[facility] 2018-07-15 14:49:00Surgical Pathology Report Case: [id number] Authorizing Provider: Sis Dhillon MD Collected: 07/13/2018 0833 Ordering Location: [address] Received: 07/13/2018 1315 Service Pathologist: Grzegorz Suarez MD Specimen: Biopsy, Gastric, GASTRIC BX - R/O H PYLORI STOMACH, BIOPSY: - MILD CHRONIC INACTIVE GASTRITIS - SURFACE EPITHELIUM WITH REACTIVE/REGENERATIVE CHANGES - NEGATIVE FOR H. PYLORI BY WARTHIN-STARRY STAIN Signing Pathologist Direct Phone Line: [phone] signed by Grzegorz Suarez MD on 07/15/2018 at 2:49 [id number] bleed, rule out H. Pylori Gastric biopsy The specimen is received in a formalin-filled container labeled with the patient's information and labeled"gastric biopsy" and consists of a 0.5 cm fragment of marquez soft tissue submitted entirely in A1. CG/ew Performed.The interpretation of this case included the use of immunohistochemistry or special stains.Warthin-Starry Immunohistochemistry technical testing was performed at [facility], Pathology Laboratory where it was developed and its performance characteristics were determined. It has not been cleared or approved by the U.S. Food and Drug Administration. The FDA has determined that such clearance or approval is not necessary. The test is used for clinical purposes. It shouldnot be regarded as investigational or for research. This laboratory is certified under the Clinical Laboratory Improvement Amendments of 1988 (CLIA-88) as qualified to perform high complexity clinical laboratory testing.[id number] 05:46:00 Test Item Value Reference Range Interpretation Comments MAGNESIUM (BEAKER) (test code = 1.4 mg/dL 1.6-2.6 L 627) BASIC METABOLIC [id number] 05:46:00 Test Item Value Reference Range Interpretation Comments SODIUM (BEAKER) 140 meq/L 136-145 (test code = 381) POTASSIUM (BEAKER) 3.6 meq/L 3.5-5.1 (test code = 379) CHLORIDE (BEAKER) 105 meq/L 98-107 (test code = 382) CO2 (BEAKER) (test 26 meq/L 22-29 code = 355) BLOOD UREA NITROGEN 8 mg/dL 7-21 (BEAKER) (test code = 354) CREATININE (BEAKER) 0.84 mg/dL 0.57-1.25 (test code = 358) GLUCOSE RANDOM 86 mg/dL 70-105 (BEAKER) (test code = 652) CALCIUM (BEAKER) 9.1 mg/dL 8.4-10.2 (test code = 697) EGFR (BEAKER) (test 66 mL/min/1.73 ESTIMA JOSHUA GFR IS code = 1092) sq m NOT ACCURATE CREATININE CLEARANCE IN PREDICTING GLOMERULAR FILTRATION RATE . ESTIMATED GFR I S NOT APPLICABLE FOR DIALYSIS PATIEN TS. CBC (HEMOGRAM ONLY)2018-07-14 05:15:00 Test Item Value Reference Range Interpretation Comments WHITE BLOOD CELL COUNT (BEAKER) 5.7 K/ L 3.5-10.5 (test code = 775) RED BLOOD CELL COUNT (BEAKER) 2.98 M/ L 3.93-5.22 L (test code = 761) HEMOGLOBIN (BEAKER) (test code = 8.9 GM/DL 11.2-15.7 L 410) HEMATOCRIT (BEAKER) (test code = 28.7 % 34.1-44.9 L 411) MEAN CORPUSCULAR VOLUME (BEAKER) 96.3 fL 79.4-94.8 H (test code = 753) MEAN CORPUSCULAR HEMOGLOBIN 29.9 pg 25.6-32.2 (BEAKER) (test code = 751) MEAN CORPUSCULAR HEMOGLOBIN CONC 31.0 GM/DL 32.2-35.5 L (BEAKER) (test code = 752) RED CELL DISTRIBUTION WIDTH 17.6 % 11.7-14.4 H (BEAKER) (test code = 412) PLATELET COUNT (BEAKER) (test 325 K/CU MM 150-450 code = 756) MEAN PLATELET VOLUME (BEAKER) 9.5 fL 9.4-12.3 (test code = 754) NUCLEATED RED BLOOD CELLS 0 /100 WBC 0-0 (BEAKER) (test code = 413) [id number] 05:54:00 Test Item Value Reference Range Interpretation Comments MAGNESIUM (BEAKER) (test code = 2.0 mg/dL 1.6-2.6 627) BASIC METABOLIC [id number] 05:54:00 Test Item Value Reference Range Interpretation Comments SODIUM (BEAKER) 143 meq/L 136-145 (test code = 381) POTASSIUM (BEAKER) 3.8 meq/L 3.5-5.1 (test code = 379) CHLORIDE (BEAKER) 107 meq/L 98-107 (test code = 382) CO2 (BEAKER) (test 28 meq/L 22-29 code = 355) BLOOD UREA NITROGEN 11 mg/dL 7-21 (BEAKER) (test code = 354) CREATININE (BEAKER) 1.03 mg/dL 0.57-1.25 (test code = 358) GLUCOSE RANDOM 77 mg/dL 70-105 (BEAKER) (test code = 652) CALCIUM (BEAKER) 9.1 mg/dL 8.4-10.2 (test code = 697) EGFR (BEAKER) (test 52 mL/min/1.73 ESTIMA JOSHUA GFR IS code = 1092) sq m NOT ACCURATE CREATININE CLEARANCE IN PREDICTING GLOMERULAR FILTRATION RATE . ESTIMATED GFR I S NOT APPLICABLE FOR DIALYSIS PATIEN TS. CBC (HEMOGRAM ONLY)2018-07-13 05:32:00 Test Item Value Reference Range Interpretation Comments WHITE BLOOD CELL COUNT (BEAKER) 5.7 K/ L 3.5-10.5 (test code = 775) RED BLOOD CELL COUNT (BEAKER) 2.95 M/ L 3.93-5.22 L (test code = 761) HEMOGLOBIN (BEAKER) (test code = 8.5 GM/DL 11.2-15.7 L 410) HEMATOCRIT (BEAKER) (test code = 28.3 % 34.1-44.9 L 411) MEAN CORPUSCULAR VOLUME (BEAKER) 95.9 fL 79.4-94.8 H (test code = 753) MEAN CORPUSCULAR HEMOGLOBIN 28.8 pg 25.6-32.2 (BEAKER) (test code = 751) MEAN CORPUSCULAR HEMOGLOBIN CONC 30.0 GM/DL 32.2-35.5 L (BEAKER) (test code = 752) RED CELL DISTRIBUTION WIDTH 18.6 % 11.7-14.4 H (BEAKER) (test code = 412) PLATELET COUNT (BEAKER) (test 351 K/CU MM 150-450 code = 756) MEAN PLATELET VOLUME (BEAKER) 9.5 fL 9.4-12.3 (test code = 754) NUCLEATED RED BLOOD CELLS 0 /100 WBC 0-0 (BEAKER) (test code = 413) [id number] 18:26:00 Test Item Value Reference Range Interpretation Comments FERRITIN (BEAKER) (test code = 361) 62 ng/mL 5-275 CT, CHEST, WITHOUT [id number] 18:06:00FINAL REPORT CT of the Chest dated 07/12/2018 CLINICAL INFORMATION: Pleural effusioncountour abnormality on XRAY, concerning for mass Comment: Axial images of the chest were obtained from thoracic inlet to the upper abdomen without intravenous contrast. This exam was performed according to our departmental dose-optimization program, which includes automated exposure control, adjustment of the mA and/or kV according to patient size and/or use of interactive reconstruction technique. Heart is normal in size. Minimal vascular calcification is seen in the thoracic aorta and coronary arteries. Great vessels are unremarkable. No adenopathy in the mediastinum or perihilar region. Trachea and mainstem bronchi are patent. A large size hiatal hernia is present. There is trace bilateralpleural effusion with bibasilar subsegmental atelectasis. Minimal scarring is seen in both upper lobes. The rest of lungs are clear. No nodular, mass lesion, or airspace disease is seen. Visualized upper abdomen demonstrates no focal lesion. Impression: 1. Large hiatal hernia.2. Bilateral pleural effusion with bibasilar subsegmental atelectasis.3. Minimal scarring in both upper lobes. Signed: Ning Jacobo Verified Date/Time: 07/12/2018 18:06:35 Reading Location: [facility] [address] Consult Reading Room IRON, TIBC, % SAT. (WITHOUT FERRITIN)2018-07-12 18:05:00 Test Item Value Reference Range Interpretation Comments IRON (BEAKER) (test code = 547) 61 ug/dL 40-160 TOTAL IRON BINDING CAPACITY 316 ug/dL 250-450 (BEAKER) (test code = 769) IRON % SATURATION (2) (BEAKER) 19 % 20-55 L (test code = 2590) OCCULT BLOOD, [id number] 16:18:00 Test Item Value Reference Range Interpretation Comments FECAL OCCULT BLOOD (BEAKER) (test Positive Negative A code = 618) RAD, FOOT, MIN 3 VIEWS, [id number] 08:42:00Reason for exam:->left heel painFINAL REPORT INDICATION:Left foot pain. COMPARISON: None. TECHNIQUE: Left foot radiograph three views. FINDINGS / IMPRESSION:No fracture or malalignment is demonstrated. Bilateral heel spurs are noted. Joint spaces relatively preserved and no osteophytosis. Soft tissues unremarkable. Signed: Sophia Villareal MDReport Verified Date/Time: 07/12/2018 08:42:42 Reading Location: [place] [id number] Ortho Consult Reading Room [id number] 07:30:00 Test Item Value Reference Range Interpretation Comments MAGNESIUM (BEAKER) (test code = 1.7 mg/dL 1.6-2.6 627) BASIC METABOLIC [id number] 07:30:00 Test Item Value Reference Range Interpretation Comments SODIUM (BEAKER) 141 meq/L 136-145 (test code = 381) POTASSIUM (BEAKER) 3.7 meq/L 3.5-5.1 (test code = 379) CHLORIDE (BEAKER) 109 meq/L 98-107 H (test code = 382) CO2 (BEAKER) (test 24 meq/L 22-29 code = 355) BLOOD UREA NITROGEN 17 mg/dL 7-21 (BEAKER) (test code = 354) CREATININE (BEAKER) 1.28 mg/dL 0.57-1.25 H (test code = 358) GLUCOSE RANDOM 89 mg/dL 70-105 (BEAKER) (test code = 652) CALCIUM (BEAKER) 8.5 mg/dL 8.4-10.2 (test code = 697) EGFR (BEAKER) (test 41 mL/min/1.73 ESTIMA JOSHUA GFR IS code = 1092) sq m NOT ACCURATE CREATININE CLEARANCE IN PREDICTING GLOMERULAR FILTRATION RATE . ESTIMATED GFR I S NOT APPLICABLE FOR DIALYSIS PATIEN TS. CBC (HEMOGRAM ONLY)2018-07-12 07:06:00 Test Item Value Reference Range Interpretation Comments WHITE BLOOD CELL COUNT (BEAKER) 5.9 K/ L 3.5-10.5 (test code = 775) RED BLOOD CELL COUNT (BEAKER) 2.29 M/ L 3.93-5.22 L (test code = 761) HEMOGLOBIN (BEAKER) (test code = 6.7 GM/DL 11.2-15.7 L 410) HEMATOCRIT (BEAKER) (test code = 22.8 % 34.1-44.9 L 411) MEAN CORPUSCULAR VOLUME (BEAKER) 99.6 fL 79.4-94.8 H (test code = 753) MEAN CORPUSCULAR HEMOGLOBIN 29.3 pg 25.6-32.2 (BEAKER) (test code = 751) MEAN CORPUSCULAR HEMOGLOBIN CONC 29.4 GM/DL 32.2-35.5 L (BEAKER) (test code = 752) RED CELL DISTRIBUTION WIDTH 19.4 % 11.7-14.4 H (BEAKER) (test code = 412) PLATELET COUNT (BEAKER) (test 408 K/CU MM 150-450 code = 756) MEAN PLATELET VOLUME (BEAKER) 9.3 fL 9.4-12.3 L (test code = 754) NUCLEATED RED BLOOD CELLS 0 /100 WBC 0-0 (BEAKER) (test code = 413) RAD, CHEST, 1 VIEW, NON [id number] 06:19:00Reason for exam:->rhonchi at bilateral basesShould this be performed at the bedside?->YesFINAL REPORT Chest one view. Clinical history: rhonchi at bilateral bases Comparison: None. Technique: A single frontal view of the chest was obtained. Findings:The heart is not enlarged. The aorta is uncoiled and atherosclerotic. There is contour abnormality at the right medial lung base for which an underlying mass cannot be excluded. There are trace bilateral pleural effusions. There is no pneumothorax. Impression: Contour abnormality in the right medial lung base for which anoncontrast chest CT is recommended to exclude an underlying mass.Trace bilateral pleural effusions.Signed: Parish Douglas MDReport Verified Date/Time: 07/12/2018 06:19:39 Reading Location: [facility] [address] CT Body Reading Room [U] XRAY KNEE 3 VWS LEFT [id number] 13:34:00Images acquired, not reported on this accession number.[facility][U] XRAY HIP UNILATERAL MIN 2 VWS RIGHT [id number] 13:53:00Images acquired, not reported on this accession number.[facility][U] XRAY KNEE 3 VWS LEFT [id number] 11:34:00Images acquired, not reported on this accession number.[facility] - XRAY CONSULTATION PAIN [id number] 13:44:01PAIN MANAGEMENT CONSULTATION HISTORY AND PHYSICALCHIEF COMPLAINT: Neck bilateral shoulder and arm pain with numbnessHISTORY OF PRESENT ILLNESS: The patient is 72-year-old retired female with a history of chronic neck pain. She has been seen in treated in both [place] and [facility]. She has had physical therapy and steroid injections. The last steroid injection was approximally 2 years ago and signif icantly improved her pain until 2 months ago. Her pain is now affecting her activities of daily living and lifestyle. She describes her arm pain and numbness is worse than her neck pain. She frequentlyhas numbness and tingling in her arms and hands. She describes as a burning electrical pain aggravated by forward neck flexion, such as with reading and looking down. Changes in position and ice partially relieve her pain. She does have popping and cracking in her neck with subjective weakness in bothof her arms and hands. She has a sleep disturbance as a result of her pain. She has no bowel bladderincontinence, fever or chills.Past medical history includes hypertension, elevated cholesterol, gastroesophageal reflux diseaseIMAGING: Multilevel disc degeneration, spondylosis and disc osteophyte complexes resulting in cervical cord compression at C3-4, C4-5 and C5-6 levels. There is also multilevelfacetal arthrosis with synovitis C4-5, C5-6 and C6-7 levels. Multilevel foraminal stenosis.PHYSICAL E XAMINATION : Female in no acute distress. Gait [...] region/greater occipital nerve. Spurlings test is positive bilatera llbasil. Sensation is intact to light touch C4-T1 [...] and C5-6 levels. The patient has incomplete relie f I will proceed with diagnostic/therapeutic bilateral C4-5 through C6-7 facet blocks. Patient will be reevaluated.D
[2023-02-05] MEDS ORDERED: AMLODIPINE 5 MG TAB ONE (10:17)
[2023-02-05] MEDS ORDERED: ASPIRIN 81 MG CHEWABLE TABLET ONE (10:17)
[2023-02-05 10:30] LABS: Absolute Lymphocytes (CBC) 1.5 K/uL (0.7-4.9); Hematocrit 36.1 % (36.0-45.0); Lymphocytes % 25.6 % (15.3-44.8); MCV 90.9 fL (80-100); MPV 7.8 fL (7.6-11.3); RBC Red Blood Cell Count 3.97 M/uL (3.86-4.86)
[2023-02-05 10:33] LABS: Protime INR 0.92
[2023-02-05 10:48] LABS: ALT/SGPT 34 U/L (13-56); AST/SGOT 24 U/L (15-37); Albumin 3.7 g/dL (3.4-5.0); Alkaline Phosphatase 98 U/L (45-117); BUN Blood Urea Nitrogen 20 mg/dL (7-18); Bicarbonate 29 mEq/L (21-32); Bilirubin Total 0.3 mg/dL (0.2-1.0); Glomerular Filtration Rate 59 ml/min (=/>90); Glucose Level 93 mg/dL (74-106); NT PRO-BNP 571 pg/mL (<450); Potassium 3.4 mEq/L (3.5-5.1); Protein, Total 7.9 g/dL (6.4-8.2); Sodium Level 140 mEq/L (136-145); Troponin High Sensitivity 6.7 pg/mL (<58.9)
[2023-02-05 10:49] LABS: Bilirubin Direct < 0.1 mg/dL (0-0.2); Bilirubin Indirect, Calculated ND mg/dL (0.2-0.8)
--- NOTE | 2023-02-05 10:58 | RAD REPORT ---
EXAM DESCRIPTION: RAD - Chest Single View - 02/05/2023 10:34 am CLINICAL HISTORY: HTN Chest pain. COMPARISON: Chest Single View dated 07/11/2018; Chest Pa And Lat (2 Views) dated 06/11/2018; CHEST S DORINA VIEW dated 04/10/2011 FINDINGS: Portable technique limits examination quality. The lungs are grossly clear. The heart is normal in size. No displaced fractures.Cervical hardware pl ate. IMPRESSION: No acute intrathoracic process suspected.
--- NOTE | 2023-02-05 11:19 | RAD REPORT ---
EXAM DESCRIPTION: CT - Head Brain Wo Cont - 02/05/2023 10:49 am CLINICAL HISTORY: HEADACHE Headache, drowsiness, hypertension COMPARISON: HEAD BRAIN W O CONTRAST dated 04/10/2011 TECHNIQUE: All CT scans are performed using dose optimization technique as appropriate and may inclu de automated exposure control or mA/KV adjustment according to patient size. FINDINGS: No intracranial hemorrhage, hydrocephalus or extra-axial fluid collection.Mild generalized brain atrophy.No areas of brain edema or evidence of midline shift. The paranasal sinuses and mastoids are clear. The calvarium is intact. IMPRESSION: No acute intracranial abnormality.
[2023-02-05] MEDS ORDERED: POTASSIUM CL SA 10 MEQ TAB PO ONE (11:30)
--- NOTE | 2023-02-05 11:30 | ER ---
Nurse's Notes [facility] Name: Radha Cardenas Age: 77 yrs Sex: Female : 1945 Arrival Date: 02/05/2023 Time: 09:50 Bed 6 Private MD: Daria Ramon C Diagnosis: Essential (primary) hypertension;Headache Presentation: 02/05 10:01 Chief complaint: Patient states: High blood pressure that started this morning, 180-190 ph systolic at home, takes Metoprolol and Amlodipine, reports headache and dizziness, denies chest pain. Coronavirus screen: Vaccine status: Patient reports receiving the 2nd dose of the covid vaccine. Ebola Screen: No symptoms or risks identified at this time. Initial Sepsis Screen: Does the patient meet any 2 criteria? No. Patient's initial sepsis screen is negative. Does the patient have a suspected source of infection? No. Patient's initial sepsis screen is negative. Risk Assessment: Do you want to hurt yourself or someone else? Patient reports no desire to harm self or others. 10:01 Method Of Arrival: Ambulatory ph 10:01 Acuity: SLOAN 2 ph Triage Assessment: 10:03 Headache History: The patient has had previous headaches and this one is similar to bp previous episodes. General: Appears in no apparent distress. Behavior is appropriate for age. Pain: Complains of pain in head Pain currently is 6 out of 10 on a pain scale. Pain began 3 hours ago. Also complains of no other associated symptoms. EENT: No deficits noted. Neuro: Reports headache. Cardiovascular: No deficits noted. Respiratory: No deficits noted. GI: No signs and/or symptoms were reported involving the gastrointestinal system. : No signs and/or symptoms were reported regarding the genitourinary system. Derm: No deficits noted. Musculoskeletal: No deficits noted. Historical: - Allergies: 10:03 No Known Allergies; ph - PMHx: 10:03 Anemia; Depression; GERD; Hyperlipidemia; Hypertension; Osteoporosis; ph - Immunization history:: Adult Immunizations unknown. - Social history:: Smoking status: Patient denies any tobacco usage or history of. Screenin:04 [facility] ED Fall Risk Assessment (Adult) History of falling in the last 3 months, bp including since admission No falls in past 3 months (0 pts). Abuse screen: Denies threats or abuse. Denies injuries from another. Nutritional screening: No deficits noted. Tuberculosis screening: No symptoms or risk factors identified. Assessment: 10:04 General: SEE TRIAGE NOTE. bp 11:10 General: Appears in no apparent distress. comfortable, Behavior is calm, cooperative, ld1 appropriate for age. Pain: Denies pain. Neuro: Level of Consciousness is awake, alert, obeys commands, Oriented to person, place, time, situation. Cardiovascular: Capillary refill < 3 seconds Patient's skin is warm and dry. Rhythm is sinus rhythm. Respiratory: Airway is patent Respiratory effort is even, unlabored. Vital Signs: 10:01 BP 192 / 77; Pulse 65; Resp 18; Temp 97.4; Pulse Ox 98% on R/A; ph 11:10 BP 181 / 67; Pulse 64; Resp 18; Pulse Ox 99% on R/A; ld1 Bg Coma Score: 10:03 Eye Response: spontaneous(4). Motor Response: obeys commands(6). Verbal Response: snw oriented(5). Total: 15. 11:19 Eye Response: spontaneous(4). Motor Response: obeys commands(6). Verbal Response: snw oriented(5). Total: 15. NIH Stroke Scale Scores: 10:03 NIHSS Score: 0 snw ED Course: 09:51 Patient arrived in ED. rg4 09:51 Daria Ramon MD is Private Physician. rg4 09:52 Fariha Flores FNP-C is [facility]. snw 09:52 Blane Curtis MD is Attending Physician. snw 09:54 Taiwo Veliz, SALVATORE is Primary Nurse. bp 10:02 Triage completed. ph 10:03 Arm band placed on Patient placed in an exam room, on a stretcher. ph 10:04 Patient has correct armband on for positive identification. Bed in low position. Call bp light in reach. Side rails up X2. 10:29 Inserted saline lock: 20 gauge in right antecubital area, using aseptic technique. ld1 Blood collected. 10:36 XRAY Chest (1 view) In Process Unspecified. EDMS 10:50 CT Head Brain wo Cont In Process Unspecified. EDMS 11:29 Daria Ramon MD is Referral Physician. snw 12:02 No provider procedures requiring assistance completed. IV discontinued, intact, ld1 bleeding controlled, No redness/swelling at site. Administered Medications: 10:13 Drug: Aspirin PO Chewable Tablet 324 mg Route: PO; bp 10:13 Drug: amLODIPine PO 5 mg Route: PO; bp 11:26 Drug: Potassium Chloride PO 20 mEq Route: PO; ld1 11:26 Drug: HYDROcodone-acetaminophen PO 5 mg-325 mg 1 tabs Route: PO; ld1 Medication: 10:04 VIS not applicable for this client. bp Outcome: 11:30 Discharge ordered by MD. snw 12:02 Discharged to home ambulatory. ld1 12:02 Condition: stable 12:02 Discharge instructions given to patient, Instructed on discharge instructions, follow up and referral plans. Demonstrated understanding of instructions, follow-up care. 12:03 Patient left the ED. ld1 NIH Stroke Scale - NIH Stroke Score Date: 02/05/2023 Time: 10:03 Total Score = 0 10. Dysarthria (speech clarity - read or repeat words) - 0(Normal) 11. Extinction and Inattention (visual/tactile/auditory/spatial/personal) - 0(No abnormality) 1a. Level of Consciousness (LOC) - 0(Alert) 1b. Level of Consciousness (LOC) (Month \T\ Age) - 0(Both) 1c. LOC Commands (Open \T\ Closes Eyes/Cooling Room Attendant) - 0(Both) 2. Best Gaze (Lateral Gaze Paresis) - 0(Normal) 3. Visual Field Loss - 0(No visual loss) 4. Facial Palsy - 0(Normal) 5a. Left Arm: Motor (10-second hold) - 0(No drift) 5b. Right Arm: Motor (10-second hold) - 0(No drift) 6a. Left Leg: Motor (5-second hold - always test supine) - 0(No drift) 6b. Right Leg: Motor (5-second hold - always test supine) - 0(No drift) 7. Limb Ataxia (finger/nose \T\ heel/orr - test with eyes open) - 0(Absent) 8. Sensory Loss (pinprick arms/legs/face) - 0(Normal) 9. Best Language: Aphasia (description/naming/reading) - 0(No aphasia) Initials: snw Signatures: Dispatcher [employer] EDMS Fariha Flores, SAMPLER AND TEST PREPARER-C SAMPLER AND TEST PREPARER-Csnw Yesika Lester, RN RN ph Letitia Gamble rg4 Taiwo Veliz, RN RN bp Irena Villatoro, RN RN ld1
--- NOTE | 2023-02-05 11:30 | EDPHYS ---
Physician Documentation [facility] Name: Radha Cardenas Age: 77 yrs Sex: Female : 1945 Arrival Date: 02/05/2023 Time: 09:50 Bed 6 Private MD: Daria Ramon C ED Physician Blane Curtis HPI: 02/05 10:39 This 77 yrs old Female presents to ER via Ambulatory with complaints of Headache, High snw Blood Pressure. 10:39 The patient complains of pain to the forehead. The patient describes the headache as a snw pressure. Onset: The symptoms/episode began/occurred gradually, today. Associated signs and symptoms: Pertinent positives: high blood pressure, Pertinent negatives: altered mental status, dizziness, fever, nausea, neck stiffness, Photophobia sinus tenderness, vision changes, weakness. Headache History: Denies prior headaches. The patient has not experienced similar symptoms in the past. sees Dr. Ramon. Historical: - Allergies: 10:03 No Known Allergies; ph - PMHx: 10:03 Anemia; Depression; GERD; Hyperlipidemia; Hypertension; Osteoporosis; ph - Immunization history:: Adult Immunizations unknown. - Social history:: Smoking status: Patient denies any tobacco usage or history of. ROS: 10:36 Constitutional: Negative for fever, chills, and weight loss, Eyes: Negative for injury, snw pain, redness, and discharge, ENT: Negative for injury, pain, and discharge, Neck: Negative for injury, pain, and swelling, Cardiovascular: Negative for chest pain, palpitations, and edema, Respiratory: Negative for shortness of breath, cough, wheezing, and pleuritic chest pain, Abdomen/GI: Negative for abdominal pain, nausea, vomiting, diarrhea, and constipation, Back: Negative for injury and pain, : Negative for injury, bleeding, discharge, and swelling, MS/Extremity: Negative for injury and deformity, Skin: Negative for injury, rash, and discoloration. 10:36 Neuro: Positive for headache. Exam: 10:03 Constitutional: This is a well developed, well nourished patient who is awake, alert, snw and in no acute distress. Head/Face: Normocephalic, atraumatic. Eyes: Pupils equal round and reactive to light, extra-ocular motions intact. Lids and lashes normal. Conjunctiva and sclera are non-icteric and not injected. Cornea within normal limits. Periorbital areas with no swelling, redness, or edema. ENT: Nares patent. No nasal discharge, no septal abnormalities noted. Tympanic membranes are normal and external auditory canals are clear. Oropharynx with no redness, swelling, or masses, exudates, or evidence of obstruction, uvula midline. Mucous membranes moist. Neck: Trachea midline, no thyromegaly or masses palpated, and no cervical lymphadenopathy. Supple, full range of motion without nuchal rigidity, or vertebral point tenderness. No Meningismus. Chest/axilla: Normal chest wall appearance and motion. Nontender with no deformity. No lesions are appreciated. Cardiovascular: Regular rate and rhythm with a normal S1 and S2. No gallops, murmurs, or rubs. Normal PMI, no JVD. No pulse deficits. Respiratory: Lungs have equal breath sounds bilaterally, clear to auscultation and percussion. No rales, rhonchi or wheezes noted. No increased work of breathing, no retractions or nasal flaring. Abdomen/GI: Soft, non-tender, with normal bowel sounds. No distension or tympany. No guarding or rebound. No evidence of tenderness throughout. Back: No spinal tenderness. No costovertebral tenderness. Full range of motion. Skin: Warm, dry with normal turgor. Normal color with no rashes, no lesions, and no evidence of cellulitis. MS/ Extremity: Pulses equal, no cyanosis. Neurovascular intact. Full, normal range of motion. Psych: Awake, alert, with orientation to person, place and time. Behavior, mood, and affect are within normal limits. 10:03 Neuro: Orientation: is normal, Mentation: is normal, Memory: is normal, Cranial nerves: grossly normal, Sensation: tingling, bilateral lips, Gait: is steady, seizure activity, is not displayed by the patient, Abnormal movements: there are no abnormal movements. Vital Signs: 10:01 BP 192 / 77; Pulse 65; Resp 18; Temp 97.4; Pulse Ox 98% on R/A; ph 11:10 BP 181 / 67; Pulse 64; Resp 18; Pulse Ox 99% on R/A; ld1 NIH Stroke Scale Scores: 10:03 NIHSS Score: 0 snw Bg Coma Score: 10:03 Eye Response: spontaneous(4). Motor Response: obeys commands(6). Verbal Response: snw oriented(5). Total: 15. 11:19 Eye Response: spontaneous(4). Motor Response: obeys commands(6). Verbal Response: snw oriented(5). Total: 15. MDM: 09:53 Patient medically screened. snw 11:19 Differential diagnosis: hypoglycemia, hyponatremia, subarachnoid bleed, tension snw headache, vasomotor headache. Data reviewed: vital signs, nurses notes, lab test result(s), EKG, radiologic studies. I considered the following discharge prescriptions or medication management in the emergency department Medications were administered in the Emergency Department. See MAR. Counseling: I had a detailed discussion with the patient and/or guardian regarding: the historical points, exam findings, and any diagnostic results supporting the discharge/admit diagnosis, the presence of at least one elevated blood pressure reading (>120/80) during this emergency department visit, lab results, radiology results, the need for outpatient follow up, to return to the emergency department if symptoms worsen or persist or if there are any questions or concerns that arise at home. 11:20 Special discussion: I have referred the patient to see his PCP for further evaluation snw of high blood pressure. Based on the history and exam findings, there is no indication for further emergent testing or inpatient evaluation. I discussed with the patient/guardian the need to see the primary care provider for further evaluation of the symptoms. 02/05 10:03 Order name: Basic Metabolic Panel; Complete Time: 11:18 w 02/05 10:03 Order name: CBC with Diff; Complete Time: 10:02/05 10:03 Order name: LFT's; Complete Time: 11:18 snw 02/05 10:03 Order name: Magnesium; Complete Time: 11:18 snw 02/05 10:03 Order name: NT PRO-BNP; Complete Time: 11:18 snw 02/05 10:03 Order name: PT-INR; Complete Time: 10:41 w 02/05 10:03 Order name: Troponin HS; Complete Time: 11:18 w 02/05 10:03 Order name: XRAY Chest (1 view); Complete Time: 11:18 w 02/05 10:04 Order name: CT Head Brain wo Cont; Complete Time: 11: snw 02/05 10:03 Order name: EKG; Complete Time: 10: snw 02/05 10:03 Order name: Cardiac monitoring; Complete Time: 10: snw 02/05 10:03 Order name: EKG - Nurse/Tech; Complete Time: : snw 02/05 10:03 Order name: IV Saline Lock; Complete Time: : snw 02/05 10:03 Order name: Labs collected and sent; Complete Time: : snw 02/05 10:03 Order name: O2 Per Protocol; Complete Time: 10: snw 02/05 10:03 Order name: O2 Sat Monitoring; Complete Time: : snw EC:30 Rate is 65 beats/min. Rhythm is regular. QRS Dagmar is Normal. [place] interval is normal. snw Clinical impression: NSR w/ Non-specific ST/T Changes. Administered Medications: 10:13 Drug: Aspirin PO Chewable Tablet 324 mg Route: PO; bp 10:13 Drug: amLODIPine PO 5 mg Route: PO; bp 11:26 Drug: Potassium Chloride PO 20 mEq Route: PO; ld1 11:26 Drug: HYDROcodone-acetaminophen PO 5 mg-325 mg 1 tabs Route: PO; ld1 Disposition Summary: 02/05/23 11:30 Discharge Ordered Location: Home snw Condition: Stable snw Diagnosis - Essential (primary) hypertension snw - Headache snw Followup: snw - With: Emergency Department - When: As needed - Reason: Worsening of condition Followup: snw - With: Daria Ramon MD - When: 2 - 3 days - Reason: Recheck today's complaints, Continuance of care, Re-evaluation by your physician Discharge Instructions: - Discharge Summary Sheet snw - Hypertension, Adult snw - DASH Eating Plan snw - Rehydration, Adult snw - Managing Your Hypertension snw - Form - Blood Pressure Record Sheet snw Forms: - Medication Reconciliation Form snw - Thank You Letter snw - Antibiotic Education snw - Prescription Opioid Use snw NIH Stroke Scale - NIH Stroke Score Date: 02/05/2023 Time: 10:03 Total Score = 0 10. Dysarthria (speech clarity - read or repeat words) - 0(Normal) 11. Extinction and Inattention (visual/tactile/auditory/spatial/personal) - 0(No abnormality) 1a. Level of Consciousness (LOC) - 0(Alert) 1b. Level of Consciousness (LOC) (Month \T\ Age) - 0(Both) 1c. LOC Commands (Open \T\ Closes Eyes/Sales Service Technician) - 0(Both) 2. Best Gaze (Lateral Gaze Paresis) - 0(Normal) 3. Visual Field Loss - 0(No visual loss) 4. Facial Palsy - 0(Normal) 5a. Left Arm: Motor (10-second hold) - 0(No drift) 5b. Right Arm: Motor (10-second hold) - 0(No drift) 6a. Left Leg: Motor (5-second hold - always test supine) - 0(No drift) 6b. Right Leg: Motor (5-second hold - always test supine) - 0(No drift) 7. Limb Ataxia (finger/nose \T\ heel/orr - test with eyes open) - 0(Absent) 8. Sensory Loss (pinprick arms/legs/face) - 0(Normal) 9. Best Language: Aphasia (description/naming/reading) - 0(No aphasia) Initials: snw Signatures: Dispatcher [employer] EDMS Fariha Flores, PILLOWCASE CLEANER-C PILLOWCASE CLEANER-Csnw Yesika Lester RN RN ph Peltier, Brian, RN RN bp Irena Villatoro RN RN ld1
[2023-02-05] MEDS ORDERED: HYDROCODONE/APAP 5/325 MG TAB ONE (11:33)
[2023-02-05 12:17] VITALS: TEMP 97.4
[2023-02-05 12:23] VITALS: BP 181/67; O2SAT 99
--- NOTE | 2023-02-06 17:43 | EKG ---
Test Date: 2023-02-05 Test Time: 10:22:35 Bss Solution Architect: RUSS MEASUREMENT RESULTS: Intervals: Rate: 65 VT: 188 QRSD: 88 QT: 416 QTc: 432 Chancellor: P: 61 VT: 188 QRS: 91 T: 41 INTERPRETIVE STATEMENTS: Normal sinus rhythm Rightward axis Cannot rule out Anterior infarct, age undetermined Abnormal ECG Compared to ECG 07/11/2018 22:33:28 Right-axis deviation now present Myocardial infarct finding now present Electronically Signed On 02-06-23 17:40:00 CDT by Yakov Diop
== END 2023-02-05 12:03 | disposition home or self-care (01) ==
LOC: ER 09:50
DX: R51.9 Headache, unspecified (principal); I10 Essential (primary) hypertension
CPT/HCPCS: 36415; 70450; 71045; 80048; 80076; 83735; 83880; 84484; 85025; 85610; 93005

== ENCOUNTER 2023-08-06 07:50 | Observation (INO) | payer OTHER ==
[2023-08-06 08:04] LABS: Absolute Lymphocytes (CBC) 1.7 K/uL (0.7-4.9); Hematocrit 34.7 % (36.0-45.0); Lymphocytes % 34.4 % (15.3-44.8); MCV 89.9 fL (80-100); Platelets 299 thou/uL (152-406); RBC Red Blood Cell Count 3.86 M/uL (3.86-4.86)
[2023-08-06] MEDS ORDERED: Ringers Lactate 1,000 ML IV ONE (08:24)
[2023-08-06] MEDS ORDERED: CEFAZOLIN SODIUM 1 GM/VIAL ONE (08:24)
[2023-08-06 08:29] LABS: Potassium 4.1 mEq/L (3.5-5.1)
[2023-08-06] MEDS ORDERED: ROCURONIUM 50 MG/5 ML VIAL IV ONE (08:54)
[2023-08-06] MEDS ORDERED: LIDOCAINE 2% MPF 5 ML VIAL ONE (08:54)
[2023-08-06] MEDS ORDERED: propofoL 200 MG/20 ML VIAL IV ONE (08:54)
[2023-08-06] MEDS ORDERED: FENTANYL CITR 100 MCG/2 ML ONE ×2 (08:54→09:47)
[2023-08-06] MEDS ORDERED: ONDANSETRON 4 MG/2 ML VIAL ONE (08:54)
[2023-08-06] MEDS ORDERED: dexAMETHasone 10 MG/ML VIAL ONE (09:28)
[2023-08-06] MEDS ORDERED: EPHEDRINE SULF 50 MG/ML VIAL ONE (09:29)
[2023-08-06] MEDS ORDERED: SODIUM CHLORIDE 0.9% 10ML INJ IV PRN (10:34)
--- NOTE | 2023-08-06 10:49 | P.BOP ---
Preoperative diagnosis: tender incisional incarcerated umbilical hernia, abd pain, nausea vomit, HH Postoperative diagnosis: same plus extensive intrabdominal adhesions Primary procedure: 1. Laparoscopic repair incisional incarcerated umbilical hernia with mesh Secondary procedure: 2. Laparoscopic lysis of adhesions Glue Size Machine Operator: JESSE GIL (STUNT PERFORMER) Estimated blood loss: <10cc Specimen: sac Findings: intrabdominal adhesions with incarcerated omentum Anesthesia: General Complications: None Transferred to: Recovery Room Condition: Good
[2023-08-06] MEDS: FENTANYL CITR 100 MCG/2 ML ONE ×4 (10:50→11:19)
[2023-08-06 12:53] VITALS: O2SAT 100; BMI 25.4
[2023-08-06] MEDS: NA CHLORIDE 0.9% 1,000 ML IV SCH (13:05)
[2023-08-06] MEDS: CEFOXITIN 1 GM in NA CHLORIDE 0.9% 50 ML IVPB SCH ×3 (13:06→23:41)
[2023-08-06] MEDS: HYDROMORPHONE HCL 1 MG/ML INJ IV PRN ×3 (13:54→23:40)
[2023-08-06] MEDS ORDERED: INFLUENZA VACCINE (for 6+ mo) 0.5 ML DOSE IMVAC ONE (14:00)
[2023-08-06] MEDS: ONDANSETRON 4 MG/2 ML VIAL IV PRN ×2 (14:20→19:25)
[2023-08-06] MEDS: FAMOTIDINE 20 MG TAB PO SCH (22:00)
[2023-08-06] MEDS ORDERED: FAMOTIDINE 20 MG TAB PO ONE (22:00)
--- NOTE | 2023-08-07 01:13 | OP ---
Date of Procedure: 08/06/2023 Surgeon: Chi Metz MD Certified Physician Assistant: SOLE Sandoval. Preoperative Diagnoses: Tender incisional incarcerated umbilical hernia, history of abdominal pain, history of nausea, history of vomiting, history of hiatal hernia, and multiple laparotomies. Postoperative Diagnoses: Tender incisional incarcerated umbilical hernia, history of abdominal pain, history of nausea, history of vomiting, history of hiatal hernia, and multiple laparotomies, and ext ensive intra-abdominal adhesions. Procedures: 1.Laparoscopic repair of incisional incarcerated umbilical hernia with mesh. 2.Laparoscopic lysis of adhesions. Estimated Blood Loss: Less than 10 mL. Specimens: Hernia sac. Findings: Intraabdominal adhesions with incarcerated omentum. Estimated Blood Loss: Less than 10 mL. Complications: None. Mesh: A large Ventralex mesh. Indication: This is a case of a female who comes to us with multiple problems, nausea, chronic vomit ing, chronic nausea, chronic abdominal pain, seen by the kieselguhr regenerator operator and referred to us for an umbilical incisional hernia repair. She has a midline incision. She has multiple surgeries to that area, found to have an umbilical hernia on imaging several months ago. She also have history of a h iatal hernia, but she claimed was fixed previously. The CAT scan shows a small hernia and she was ad vised to look for medical advise during this procedure. We will not be fixing the hiatal hernia, we will be fixing only the umbilical incisional hernia. She knows about that. The benefits, alternativ es, and risks of laparoscopic possible repair of umbilical incisional hernia with possible mesh fully explained, which include, but not limited to infection, bleeding, damage to adjacent structures, ane sthesia complications, recurrence, chronic pain, chronic numbness, NV, and even . She also unde rstands this may not relieve any symptoms, she might need more than one surgical intervention. She d oes understand we may be use some mesh in that region, so pros and cons of mesh use were discussed wi th the patient and the family. All the questions were answered to their satisfaction. She signed a consent. Description Of Procedure: The patient was brought to the operating room, placed in supine position. Anesthesia was done without complication. Abdominal area was prepped and draped in usual sterile fa shion. Marcaine 0.5% was injected for local anesthetic after a time-out. An incision was made in th e periumbilical region. Incision was carried down to fascia. We tried to separate the umbilical are a incarceration with omentum from the hernia sac. We amputated the hernia sac, removed the content a nd cleaned the fascial edges. We noticed the fascial edges to be weak/shredded, so we have to trim t hem and that make us have to reinforce the area at least with the help of a mesh. So to do that, we noticed the patient has a large amount of intraabdominal adhesions so in order to do that laparoscopi ashley I put a Delmar trocar to the umbilical region, obtained pneumoperitoneum, then under direct vis ualization with a 30 mm laparoscope we proceeded to put a 5 mm trocars in the left and right side of the abdomen under direct visualization. This allowed me to visualize the area better. There is exte nsive intra-abdominal adhesions with omentum into the anterior abdominal wall in addition to the inca rceration we had removed already. We, with the help of LigaSure, proceeded then to take some time, p robably half the time of the case just doing lysis of adhesions without any enterotomies. We checked for hemostasis. Once we have the anterior abdominal wall in that area clear and we can measure that better, we selected a large Ventralex mesh to cover the defect at least circumferentially by 3-5 cm. The mesh was placed through the Delmar trocar. The Delmar trocar was carefully removed. The mesh was secured in place. The fascial edges were approximated in the umbilical region and then with the help of pneumoperitoneum, we proceeded to fixate the mesh to the anterior abdominal wall using SorbaF ix fixation device circumferentially. At that moment, we see the mesh nice and flat against the abdo ana wall. There is an AirSeal to it. The area of the lysis of adhesion shows no bleeding. At kenneth t moment, I proceeded then to deflate the pneumoperitoneum under direct visualization, removed the tr ocars. We irrigated subcutaneous tissues with 3-0 chromic and the skin with carla. Sponge count a nd instrument counts were correct. The patient tolerated the procedure well. The patient was sent t o recovery in stable condition. This patient has history of chronic abdominal pain, chronic nausea, chronic vomiting, just before even the surgery. I discussed the case with the family. She is having some pain and discomfort. She does not feel comfortable going home today. She wants to be keep ove rnight. I discussed that with the patient and the family, we did agree. Once we have the pain under control, then we will be able to send her home hopefully tomorrow, if clinically improved. LAUREANO/ZOLTAN Voice ID: [id number] Report ID: [id number]
[2023-08-07] MEDS: ONDANSETRON 4 MG/2 ML VIAL IV PRN ×2 (02:05→07:00)
[2023-08-07] MEDS: NA CHLORIDE 0.9% 1,000 ML IV SCH ×2 (05:12→20:20)
[2023-08-07] MEDS: HYDROMORPHONE HCL 1 MG/ML INJ IV PRN ×2 (05:12→13:12)
[2023-08-07] MEDS ORDERED: PROMETHAZINE 25 MG TABLET PO PRN (06:45)
--- NOTE | 2023-08-07 06:48 | CON ---
Date of Consultation: 08/06/2023 Reason For Consultation: Medical management. History Of Present Illness: This is a 78-year-old pleasant female patient, who had surgery done for incarcerated umbilical hernia by Dr. Metz. Postoperatively, she was admitted to the hospital, an d consultation was requested for medical management. The patient denies any chest pain or shortness of breath. She has abdominal binder present, has some abdominal discomfort, but no other complaints reported by her. Allergies: NO KNOWN ALLERGIES. Medications: Amlodipine 5 mg 2 times a day, bupropion 300 mg daily at bedtime, Repatha injection willow ry 2 weeks, famotidine 20 mg daily at bedtime, gabapentin 600 mg 2 times a day, iron 65 mg daily, met oprolol tartrate 25 mg 2 times a day, mirtazapine 15 mg daily at bedtime, Zofran 4 mg 4 times a day a s needed for nausea and vomiting, pantoprazole 40 mg daily in morning, sertraline 50 mg daily in morn ing, tizanidine 4 mg daily at bedtime. Review of Systems: GI: As mentioned above. All other systems reviewed and negative. Past Medical History: Significant for hypertension, gastroesophageal reflux disease, hyperlipidemia, diverticulosis, history of recurrent urinary tract infection, chronic kidney disease stage 3b, cervi tan spondylosis, anemia, anxiety, depression, insomnia, osteopenia. Past Surgical History: Cholecystectomy done on June 02, 2013, appendectomy in 2006, cervical spin e surgery, right hip surgery due to osteoarthritis, left knee surgery in form of arthroplasty due to arthritis, and breast implant in 1986. Family History: Father , had a lung cancer. Mother , had COPD. Sister has ovarian cancer. Social History: Prior history of smoking, not at present time. Use of alcohol negative. Physical Examination: Vital Signs: Height 5 feet 3 inches, weight 144 pounds, temperature 97.9, pulse 63, respiratory rate 14, blood pressure 138/62, oxygen saturation 94%. General: Awake, alert, oriented, not in distress. HEENT: Head atraumatic, normocephalic. Conjunctivae nonerythematous. Sclerae white. Mouth, no thr ush or edema noted. Ears/Nose, no mass, lesion, discharge noted. Neck: Supple. No JVD, lymph nodes, bruit, thyromegaly noted. Lungs: Bilateral good equal air entry. Clear to auscultation. No rhonchi. No rales. Heart: Normal heart sounds, no murmur or gallop. Abdomen: Abdominal binder was present. Abdomen is soft. Bowel sounds normal. No guarding, rigidit y, or distention. No hepatosplenomegaly. No bruit. Extremities: No leg edema. No calf tenderness. Skin: No rash, ulcer, cellulitis. Lymphatics: No lymph node enlargement in neck, supraclavicular, infraclavicular region. Neuro: No focal neurological deficit. Chest: Unremarkable. External Genitalia: Deferred. Rectal: Deferred. Laboratory Data: White count 5, hemoglobin 11.6, platelets 219. Sodium 145, potassium 4.1, chloride 110, bicarb 29, BUN 19, creatinine 1.34, glucose 89. Impression: 1.Hypertension. 2.Hyperlipidemia. 3.Gastroesophageal reflux disease. 4.Insomnia. 5.Chronic kidney disease, stage 3b. 6.Anxiety. 7.Depression. 8.Osteoarthritis, multiple sites. 9.Anemia, chronic, unspecified. Plan: We will go ahead and continue her medications for gastroesophageal reflux disease including he r famotidine as per order. We will continue her proton pump inhibitor also starting in the morning. For hypertension, we will continue her antihypertensive medication which is amlodipine and metoprolo l. Monitor blood pressure, if necessary adjust blood pressure medications. For hyperlipidemia, she takes Repatha and there is no need for that medication while in the hospital, but once she goes back home, she should restart it on a regular basis as prescribed. For her osteoarthritis, she takes tiza nidine, which we will continue that. For anxiety and depression, we will continue her medication as she takes at home. There is no need for any adjustment on those medications. SCD was present for DV T prophylaxis when I saw her. Thank you were much for allowing me to participate in her care. I will see her tomorrow morning for followup. Details and plan of treatment discussed with her. DOUGLAS/MODL Voice ID: [id number] Report ID: [id number]
[2023-08-07] MEDS: METOPROLOL TAR 25 MG TAB PO SCH ×2 (07:05→22:06)
[2023-08-07] MEDS: AMLODIPINE 5 MG TAB PO SCH (07:05)
[2023-08-07 08:04] LABS: Absolute Lymphocytes (CBC) 1.7 K/uL (0.7-4.9); Hematocrit 34.6 % (36.0-45.0); Lymphocytes % 17.7 % (15.3-44.8); MCV 89.3 fL (80-100); Platelets 290 thou/uL (152-406); RBC Red Blood Cell Count 3.88 M/uL (3.86-4.86)
[2023-08-07 08:14] LABS: Potassium 4.1 mEq/L (3.5-5.1)
[2023-08-07] MEDS ORDERED: PANTOPRAZOLE 40 MG INJ IVP SCH (09:00)
[2023-08-07] MEDS: PANTOPRAZOLE 40MG TABLET PO SCH (09:32)
[2023-08-07] MEDS: BUPROPION HCL XL 150 MG TAB PO SCH (09:33)
[2023-08-07] MEDS: SERTRALINE HCL 50 MG TAB PO SCH (09:33)
[2023-08-07] MEDS: HYDROCODONE/APAP 5/325 MG TAB PO PRN (17:26)
[2023-08-07] MEDS ORDERED: TIZANIDINE 4 MG TABLET PO SCH (21:00)
--- NOTE | 2023-08-07 21:28 | PN ---
Date of Progress Note: 08/07/2023 Subjective: The patient was seen this morning for followup. No new complaints or problems reported by the patient. She was lying in bed, not in any distress. Was having lot of nausea problem. No vo miting. Objective: Vital Signs: Reviewed. HEENT: Unremarkable. Lungs: Clear to auscultation. Heart: Sounds normal. Abdomen: Soft. Bowel sounds normal. No guarding, rigidity, tenderness, distention. Extremities: No leg edema. Laboratory Data: Reviewed. Impression: 1.Hypertension. 2.Hyperlipidemia. 3.Hypothyroidism. 4.Nausea. 5.Gastroesophageal reflux disease. Plan: We will go ahead and continue current proton-pump inhibitor and famotidine per order. Continu e antihypertensive medication per order. We will continue levothyroxine. Ambulation was encouraged and we will see her tomorrow for followup. Zofran did not help her with the nausea, so Phenergan was ordered for nausea. DOUGLAS/MODL Voice ID: [id number] Report ID: [id number]
[2023-08-07] MEDS: FAMOTIDINE 20 MG TAB PO SCH (22:06)
[2023-08-08 08:08] VITALS: BP 143/58; TEMP 98.3
[2023-08-08] MEDS: AMLODIPINE 5 MG TAB PO SCH (08:24)
[2023-08-08] MEDS: SERTRALINE HCL 50 MG TAB PO SCH (08:24)
[2023-08-08] MEDS: METOPROLOL TAR 25 MG TAB PO SCH (08:24)
[2023-08-08] MEDS: BUPROPION HCL XL 150 MG TAB PO SCH (08:24)
[2023-08-08] MEDS: PANTOPRAZOLE 40MG TABLET PO SCH (08:25)
[2023-08-08] MEDS: HYDROCODONE/APAP 5/325 MG TAB PO PRN (11:06)
[2023-08-08] MEDS ORDERED: MAGNESIUM HYDROXIDE 8% 30 ML PO ONE (12:00)
[2023-08-08] MEDS ORDERED: AMLODIPINE 5 MG TAB PO ONE (12:00)
--- NOTE | 2023-08-08 12:34 | DS ---
Date of Discharge: 08/08/2023 Disposition: Discharged to go home. Physical Examination: HEENT: Unremarkable. Lungs: Clear to auscultation. Heart: Sounds normal. Abdomen: Soft. Bowel sounds normal. No guarding, rigidity, tenderness, distention. Extremities: No leg edema. Discharge Diagnoses: 1.Incisional incarcerated umbilical hernia, status post surgery. 2.Anemia, unspecified. 3.Nausea. 4.Hypertension. 5.Hyperlipidemia. 6.Gastroesophageal reflux disease. 7.Chronic kidney disease, stage IIIB. 8.Insomnia. 9.Anxiety. 10.Depression. 11.Osteoarthritis, multiple sites. Hospital Course: This is a 78-year-old female patient who was admitted to hospital after her umbilic al hernia surgery by Dr. Metz. I was requested for medical consultation and medical management. I saw her the day before yesterday after her surgery and her home medications were continued as per order for her blood pressure control, which was amlodipine and metoprolol. We also continue her othe r home medication for gastroesophageal reflux disease. She did require medication for her nausea. O n outpatient basis, she takes Zofran as needed for nausea, but during this hospitalization, Zofran di d not help, so we did add Phenergan and overall she has responded very well. She has received some n arcotic pain medication. Today she is feeling much better and Dr. Metz has prescribed her outpat ient pain medication to use during postoperative time and she will use that, but I have talked to her today and informed her that it would be best if she can avoid any narcotic pain medication if at all possible and first try Tylenol for the pain and if Tylenol does not help, then she may use narcotic pain medication that will be available to her. She also has some chronic constipation and we did jaylon k about using some xled-hwx-suyqpsu medication Senokot-S. The patient is ambulating well. Does not have any trouble voiding and she will be discharged to go home in stable condition with following. Discharge Medications And Instructions: 1.Continue all prior home medications. 2.Take Tylenol 500 mg 1 tablet by mouth 4 times a day as needed for pain. 3.Use pain medication as prescribed by Dr. Metz, if Tylenol does not help her pain. 4.Follow up with Dr. Metz as per his instruction. 5.Follow up at my office week after. 6.Use bqeq-qgs-caekxwd stool softener, Senokot-S 2 tablets by mouth daily for constipation. DOUGLAS/MODL Voice ID: [id number] Report ID: [id number]
--- NOTE | 2023-08-08 12:43 | P.PN ---
Subjective Date of Service: 08/07/23 Chief Complaint: s/p repair or incarcerated umbilical hernia, extensive lysis of adhesions Subjective: Ambulating (with assistance), Improving, Doing well (But still requiring IV meds) Review of Systems General: Weakness Gastrointestinal: Nausea (Chronic but not allowing her to take PO pain meds yet.) Physical Examination - Vital Signs Temperature: 98.3 F Blood Pressure: 143/58 Pulse: 67 Respirations: 16 Pulse Ox (%): 96 - Physical Exam General: Alert, Oriented x3, Cooperative HEENT: PERRLA Neck: Supple Respiratory: Normal air movement Cardiovascular: Normal pulses Gastrointestinal: Soft and benign Integumentary: No erythema, No warmth, No cyanosis Neurological: Normal tone Assessment And Plan - Plan continue OOB safely diet advance PAin control Appreciate Dr Ramon input and help with medical treatment
[2023-08-08] MEDS ORDERED: BUPROPION HCL XL 150 MG TAB PO SCH (21:00)
== END 2023-08-08 12:45 | disposition home or self-care (01) ==
LOC: OR 07:50 → 2ND 12:05
PROVIDERS: ADMIT Surgery; ATTEND Surgery
PROC: 0DNU4ZZ Release Omentum, Percutaneous Endoscopic Approach (ICD-10-PCS; 2023-08-06)
PROC: 0WUF4JZ Supplement Abdominal Wall with Synthetic Substitute, Percutaneous Endoscopic Approach (ICD-10-PCS; principal; 2023-08-06 10:00)
DX: K42.0 Umbilical hernia with obstruction, without gangrene (principal); R10.9 Unspecified abdominal pain; R11.2 Nausea with vomiting, unspecified; K66.0 Peritoneal adhesions (postprocedural) (postinfection); I10 Essential (primary) hypertension; K21.9 Gastro-esophageal reflux disease without esophagitis; E78.5 Hyperlipidemia, unspecified; K57.90 Diverticulosis of intestine, part unspecified, without perforation or abscess without bleeding; N18.32 Chronic kidney disease, stage 3b; D64.9 Anemia, unspecified; F41.9 Anxiety disorder, unspecified; F32.A Depression, unspecified; G47.00 Insomnia, unspecified; M85.80 Other specified disorders of bone density and structure, unspecified site; M47.892 Other spondylosis, cervical region; R53.1 Weakness; R11.0 Nausea; E03.9 Hypothyroidism, unspecified; M19.90 Unspecified osteoarthritis, unspecified site; K59.00 Constipation, unspecified
CPT/HCPCS: 85025 ×2; 80048 ×2; 36415 ×2; 88302; 97116; 97161; 94010 ×2; 31720; 49592; 49329; Q0169; J2704; J2001; J3010 ×3; J1100; J1170 ×6; J0694 ×3; J2405 ×5; J7120; J7030 ×2; J0690; G0378; G0379

== ENCOUNTER 2024-06-07 08:39 | Emergency (ER) | payer OTHER ==
[2024-06-07] MEDS ORDERED: IPRATROPIUM BROM 0.5MG/2.5ML ONE (09:15)
[2024-06-07] MEDS ORDERED: ALBUTEROL 2.5 MG/3 ML NEB SOL ONE (09:15)
[2024-06-07 09:33] LABS: Absolute Basophils 0.1 K/uL (0-0.5); Absolute Eosinophils 0.1 K/uL (0-0.5); Absolute Lymphocytes (CBC) 1.7 K/uL (0.7-4.9); Absolute Monocytes 0.9 K/uL (0.1-1.3); Absolute Neutrophil 4.5 K/uL (1.8-8.0); Basophils % 0.9 % (0-1.3); Eosinophils % 0.9 % (0-4.4); Hematocrit 35.9 % (36.0-45.0); Hemoglobin 11.5 g/dL (12.0-15.0); Lymphocytes % 23.8 % (15.3-44.8); MCH 29.2 pg (27.0-35.0); MCHC 32.1 g/dL (32.0-36.0); MCV 90.8 fL (80-100); MPV 8.7 fL (7.6-11.3); Monocytes % 12.4 % (3.3-12.3); Platelets 281 thou/uL (152-406); RBC Red Blood Cell Count 3.95 M/uL (3.86-4.86); Red Cell Distribution Width 15.4 % (12.1-15.2)
[2024-06-07 09:55] LABS: ALT/SGPT 17 U/L (13-56); AST/SGOT 18 U/L (15-37); Albumin 3.4 g/dL (3.4-5.0); Albumin/Globulin Ratio 0.9 (1.1-1.8); Alkaline Phosphatase 81 U/L (45-117); Anion Gap 9.6 mEq/L (5.0-15.0); BUN Blood Urea Nitrogen 27 mg/dL (7-18); Bicarbonate 25 mEq/L (21-32); Bilirubin Total 0.3 mg/dL (0.2-1.0); Globulin 3.7 g/dL (2.3-3.5); Glomerular Filtration Rate 46 ml/min (=/>90); Glucose Level 81 mg/dL (74-106); NT PRO-BNP 853 pg/mL (<450); Potassium 3.6 mEq/L (3.5-5.1); Protein, Total 7.1 g/dL (6.4-8.2); Sodium Level 141 mEq/L (136-145); Troponin High Sensitivity 7.1 pg/mL (<58.9)
[2024-06-07 10:07] LABS: SARS-CoV-2 Antigen CONTROL BLUE LINE VIS/BG OK; SARS-CoV-2 Antigen Rapid Res Negative (Negative)
[2024-06-07 10:08] LABS: Bilirubin Direct < 0.2 mg/dL (0-0.2); Bilirubin Indirect, Calculated 0.1 mg/dL (0.2-0.8)
--- NOTE | 2024-06-07 11:22 | RAD REPORT ---
EXAMINATION: ONE VIEW CHEST XR CLINICAL INDICATION: Female, 78 years old.,COUGH TECHNIQUE: Frontal chest projection is submitted. Examination is limited by patient positioning and t echnique. COMPARISON: 03/08/2023 FINDINGS: The lungs are well inflated and clear. No pneumothorax or sizable effusion. The heart is normal in s ize. Small rounded/ovoid radiodensities in the mediastinum and basal chest, may represent calcified lymph nodes, small granulomas, or soft tissue calcifications IMPRESSION: No acute intrathoracic abnormalities.
--- NOTE | 2024-06-07 11:36 | ER ---
Nurse's Notes [facility] Name: Radha Cardenas Age: 78 yrs Sex: Female : 1945 Arrival Date: 06/07/2024 Time: 08:39 Bed 6 Private MD: Diagnosis: Acute bronchitis, unspecified Presentation: 06/07 08:55 Chief complaint: Cough, congestion, mild SOB, headache, sore throat, and diarrhea x 2 hb days. Coronavirus screen: Client presents with at least one sign or symptom that may indicate coronavirus-19. Standard/surgical mask placed on the client. Provider contacted for isolation considerations. Ebola Screen: No symptoms or risks identified at this time. Initial Sepsis Screen: Does the patient meet any 2 criteria? No. Patient's initial sepsis screen is negative. Does the patient have a suspected source of infection? No. Patient's initial sepsis screen is negative. Risk Assessment: Do you want to hurt yourself or someone else? Patient reports no desire to harm self or others. Onset of symptoms was June 06, 2024. 08:55 Method Of Arrival: Ambulatory hb 08:55 Acuity: SLOAN 4 hb Historical: - Allergies: 08:49 No Known Allergies; ph - PMHx: 08:49 Anemia; degenerative disk disease; Depression; GERD; Hyperlipidemia; Hypertension; ph Osteoporosis; - Immunization history:: Adult Immunizations unknown. - Infectious Disease History:: Denies. - Social history:: Smoking status: Patient denies any tobacco usage or history of. - Family history:: not pertinent. Screenin:00 [facility] ED Fall Risk Assessment (Adult) History of falling in the last 3 months, ph including since admission No falls in past 3 months (0 pts) Confusion or Disorientation No (0 pts) Intoxicated or Sedated No (0 pts) Impaired Gait No (0 pts) Mobility Assist Device Used No (0 pt) Altered Elimination No (0 pt) Score/Fall Risk Level 0 - 2 = Low Risk Oriented to surroundings, Maintained a safe environment, Hourly rounding (assess needs \T\ fall precautionary measures) done. Abuse screen: Denies threats or abuse. Denies injuries from another. Nutritional screening: No deficits noted. Tuberculosis screening: No symptoms or risk factors identified. Assessment: 09:28 General: Appears in no apparent distress. comfortable, well groomed, Behavior is calm, ph cooperative, appropriate for age. Pain: Denies pain. Neuro: Level of Consciousness is awake, alert, obeys commands, Oriented to person, place, time, situation. Cardiovascular: Capillary refill < 3 seconds in bilateral fingers Patient's skin is warm and dry. Respiratory: Airway is patent Respiratory effort is even, unlabored, Respiratory pattern is regular, symmetrical. Respiratory: Reports shortness of breath cough that is. Derm: Skin is pink, warm \T\ dry. Musculoskeletal: Circulation, motion, and sensation intact. Range of motion: intact in all extremities. 11:30 Reassessment: Patient appears in no apparent distress at this time. Patient and/or ph family updated on plan of care and expected duration. Pain level reassessed. Patient is alert, oriented x 3, equal unlabored respirations, skin warm/dry/pink. Vital Signs: 08:55 BP 182 / 69; Pulse 65; Resp 16; Temp 98.9; Pulse Ox 99% on R/A; Weight 63.5 kg; Height hb 5 ft. 3 in. ; Pain 3/10; 10:26 BP 188 / 67; Pulse 68; Resp 18; Pulse Ox 96% on R/A; ph 11:30 BP 176 / 64; Pulse 67; Resp 18; Pulse Ox 98% on R/A; ph 08:55 Body Mass Index 24.80 (63.50 kg, 160.02 cm) hb 08:55 Pain Scale: Adult hb ED Course: 08:42 Patient arrived in ED. mg5 08:43 Phillip Blanco MD is Attending Physician. rt 08:49 Yesika Lester, RN is Primary Nurse. ph 08:56 Triage completed. hb 08:57 Arm band placed on. hb 09:01 Patient has correct armband on for positive identification. Bed in low position. Call ph light in reach. Side rails up X 1. Pulse ox on. NIBP on. Door closed. Noise minimized. Warm blanket given. 09:27 Basic Metabolic Panel Sent. ph 09:27 CBC with Diff Sent. ph 09:27 LFT's Sent. ph 09:27 NT PRO-BNP Sent. ph 09:27 Troponin HS Sent. ph 09:27 SARS RAPID Sent. ph 09:27 Influenza Screen (a \T\ B) Sent. ph 09:28 No provider procedures requiring assistance completed. Initial lab(s) drawn, by me, ph sent to lab. EKG done, by ED staff, reviewed by Phillip Blanco MD COVID swab sent to lab. Flu and/or RSV swab sent to lab. 10:02 XRAY Chest (1 view) In Process Unspecified. EDMS 11:42 Patient did not have IV access during this emergency room visit. ph Administered Medications: 09:27 Drug: DuoNeb Nebulize (3:1) (2.5 mg - 0.5 mg) 3 ml Nebulizer once Route: Nebulizer; ph 11:42 Follow up: Response: No adverse reaction ph Medication: 09:00 VIS not applicable for this client. ph Outcome: 11:36 Discharge ordered by . rt 11:41 Discharged to home ambulatory, 11:41 Condition: good 11:41 Discharge instructions given to patient, Instructed on discharge instructions, follow up and referral plans. medication usage, Demonstrated understanding of instructions, follow-up care, medications, Prescriptions given X 2, 11:42 Patient left the ED. ph Signatures: Dispatcher [employer] [facility] Yesika Lester, SALVATORE RN Lydia Murphy, SALVATORE RN Phillip Blanco MD MD rt Nishi Conway mg5
--- NOTE | 2024-06-07 11:36 | EDPHYS ---
Physician Documentation [facility] Name: Radha Cardenas Age: 78 yrs Sex: Female : 1945 Arrival Date: 06/07/2024 Time: 08:39 Bed 6 Private MD: ED Physician Phillip Blanco HPI: 06/07 09:16 This 78 yrs old Female presents to ER via Ambulatory with complaints of Chest rt Congestion. 09:16 Patient presents to the ED with cough, congestion, wheezing for 1 day. She has positive rt sick contacts with influenza A. She has associated diarrhea. Denies chest pain, difficulty breathing. Denies other acute complaints, symptoms are moderate severity, no other aggravating or alleviating factors.. 09:17 Of note, patient is currently on about day 4 of a Medrol Dosepak for reported arthritic rt pains to the wrist. Historical: - Allergies: 08:49 No Known Allergies; ph - PMHx: 08:49 Anemia; degenerative disk disease; Depression; GERD; Hyperlipidemia; Hypertension; ph Osteoporosis; - Immunization history:: Adult Immunizations unknown. - Infectious Disease History:: Denies. - Social history:: Smoking status: Patient denies any tobacco usage or history of. - Family history:: not pertinent. ROS: 09:16 Constitutional: Negative for fever, chills, and weight loss, Cardiovascular: Negative rt for chest pain, palpitations, and edema, MS/Extremity: Negative for injury and deformity, Skin: ' Neuro: Negative for headache, weakness, numbness, tingling, and seizure, 09:16 ENT: Positive for sinus congestion, sore throat, 09:16 Respiratory: Positive for cough, wheezing, Negative for shortness of breath, 09:16 Abdomen/GI: Positive for diarrhea, Negative for abdominal pain, nausea and vomiting, Exam: 09:16 Constitutional: This is a well developed, well nourished patient who is awake, alert, rt and in no acute distress. Head/Face: Normocephalic, atraumatic. Chest/axilla: Normal chest wall appearance and motion. Nontender with no deformity. No lesions are appreciated. Cardiovascular: Regular rate and rhythm with a normal S1 and S2. No gallops, murmurs, or rubs. Normal PMI, no JVD. No pulse deficits. Abdomen/GI: Soft, non-tender, with normal bowel sounds. No distension or tympany. No guarding or rebound. No evidence of tenderness throughout. Skin: Warm, dry with normal turgor. Normal color with no rashes, no lesions, and no evidence of cellulitis. MS/ Extremity: Pulses equal, no cyanosis. Neurovascular intact. Full, normal range of motion. Neuro: Awake and alert, GCS 15, oriented to person, place, time, and situation. Cranial nerves II-XII grossly intact. Motor strength 5/5 in all extremities. Sensory grossly intact. Cerebellar exam normal. Normal gait. 09:16 Respiratory: Mild end expiratory wheezing noted, no respiratory distress, 09:29 ECG was reviewed by the Attending Physician. rt Vital Signs: 08:55 BP 182 / 69; Pulse 65; Resp 16; Temp 98.9; Pulse Ox 99% on R/A; Weight 63.5 kg; Height hb 5 ft. 3 in. ; Pain 3/10; 10:26 BP 188 / 67; Pulse 68; Resp 18; Pulse Ox 96% on R/A; ph 11:30 BP 176 / 64; Pulse 67; Resp 18; Pulse Ox 98% on R/A; ph 08:55 Body Mass Index 24.80 (63.50 kg, 160.02 cm) hb 08:55 Pain Scale: Adult hb MDM: 08:55 Medical Screening Exam initiated rt 12:44 Differential Diagnosis Acute bronchitis, asthma, pneumonia, flu. Data reviewed: vital rt signs, nurses notes, lab test result(s), EKG, radiologic studies. Consideration of Admission/Observation Escalation of care including admission/observation considered. I considered the following discharge prescriptions or medication management in the emergency department Medications were administered in the Emergency Department. See MAR. Independent interpretation of the following test(s) in the Emergency Department X-Ray: My interpretation is No pneumonia seen on interpretation of x-ray images. Test considered but Not performed: CT: Low suspicion for pulmonary embolism, CT angiogram not indicated. Care significantly affected by the following chronic conditions: Hypertension. Counseling: I had a detailed discussion with the patient and/or guardian regarding the historical points, exam findings, and any diagnostic results supporting the discharge/admit diagnosis, lab results, radiology results, the need for outpatient follow up, to return to the emergency department if symptoms worsen or persist or if there are any questions or concerns that arise at home. Response to treatment: the patient's symptoms have markedly improved after treatment. 06/07 09:05 Order name: Basic Metabolic Panel; Complete Time: 10:12 rt 06/07 09:05 Order name: CBC with Diff; Complete Time: 10:12 rt 06/07 09:05 Order name: LFT's; Complete Time: 10:12 rt 06/07 09:05 Order name: NT PRO-BNP; Complete Time: 10:12 rt 06/07 09:05 Order name: Troponin HS; Complete Time: 10:12 rt 06/07 09:05 Order name: Influenza Screen (a \T\ B); Complete Time: 10:12 rt 06/07 09:05 Order name: SARS RAPID; Complete Time: 10:12 rt 06/07 09:05 Order name: XRAY Chest (1 view); Complete Time: 11:26 rt 06/07 09:05 Order name: EKG; Complete Time: 09:06 rt 06/07 09:05 Order name: Cardiac monitoring; Complete Time: : rt 06/07 09:05 Order name: EKG - Nurse/Tech; Complete Time: : rt 06/07 09:05 Order name: Labs collected and sent; Complete Time: : rt 06/07 09:05 Order name: O2 Per Protocol; Complete Time: : rt 06/07 09:05 Order name: O2 Sat Monitoring; Complete Time: :13 rt EC:29 Rate is 60 beats/min. Rhythm is regular, Normal Sinus Rhythm with No ectopy. QRS [place] rt is Normal. DC interval is normal. QRS interval is normal. QT interval is normal. No Q waves. T waves are Normal. No ST changes noted. Interpreted by me. Administered Medications: :27 Drug: DuoNeb Nebulize (3:1) (2.5 mg - 0.5 mg) 3 ml Nebulizer once Route: Nebulizer; ph 11:42 Follow up: Response: No adverse reaction ph Disposition Summary: 06/07/24 11:36 Discharge Ordered Notes: Location: Home rt Problem: new rt Symptoms: have improved rt Condition: Stable rt Diagnosis - Acute bronchitis, unspecified rt Followup: rt - With: Private Physician - When: 2 - 3 days - Reason: Discharge Instructions: - Discharge Summary Sheet rt - Acute Bronchitis, Adult rt Forms: - Medication Reconciliation Form rt - Antibiotic Education rt - Prescription Opioid Use rt - Patient Portal Instructions rt - Leadership Thank You Letter rt Prescriptions: - albuterol sulfate 2.5 mg /3 mL (0.083 %) Inhalation Solution for Nebulization - nebulize 3 milliliter INHALATION route 4 times per day for 7 days; 90 rt milliliter; Refills: 0, Product Selection Permitted Signatures: Dispatcher [employer] Yesika Crwaford RN RN ph Baxter, Heather, RN RN Phillip Cheney MD MD rt
[2024-06-07 12:47] VITALS: TEMP 98.9
[2024-06-07 14:34] VITALS: BP 188/67; O2SAT 96
--- NOTE | 2024-06-08 12:54 | EKG ---
Test Date: 2024-06-07 Test Time: 09:17:02 Mental Health Case Manager: PH MEASUREMENT RESULTS: Intervals: Rate: 60 FL: 194 QRSD: 80 QT: 400 QTc: 400 [place]: P: 59 FL: 194 QRS: 9 T: 45 INTERPRETIVE STATEMENTS: Normal sinus rhythm Normal ECG Compared to ECG 03/08/2023 15:38:19 Sinus bradycardia no longer present Electronically Signed On 06-08-24 12:50:30 CDT by Herbie Piedra
== END 2024-06-07 11:42 | disposition home or self-care (01) ==
LOC: ER 08:39
DX: J20.9 Acute bronchitis, unspecified (principal); Z11.52 Encounter for screening for COVID-19
CPT/HCPCS: 93005; 85025; 80048; 36415; 80076; 84484; 83880; 87804 ×2; 71045; 99284; 87811; J7613; J7644

== ENCOUNTER 2024-06-09 17:15 | Emergency (ER) | payer OTHER ==
[2024-06-09] MEDS ORDERED: ALBUTEROL 2.5 MG/3 ML NEB SOL ONE (18:25)
[2024-06-09] MEDS ORDERED: IPRATROPIUM BROM 0.5MG/2.5ML ONE (18:25)
[2024-06-09] MEDS ORDERED: NA CHLORIDE 0.9% 1,000 ML ONE (18:26)
--- NOTE | 2024-06-09 18:34 | RAD REPORT ---
Procedure: Chest Single View HISTORY: Cough COMPARISON: 2022 FINDINGS: The lungs appear clear of acute infiltrate. No significant pleural effusion noted. The heart is normal size. IMPRESSION: No acute abnormality is displayed.
[2024-06-09 18:35] LABS: Absolute Lymphocytes (CBC) 1.4 K/uL (0.7-4.9); Absolute Monocytes 0.7 K/uL (0.1-1.3); Absolute Neutrophil 3.3 K/uL (1.8-8.0); Basophils % 0.6 % (0-1.3); Eosinophils % 0.5 % (0-4.4); Hematocrit 37.3 % (36.0-45.0); Hemoglobin 12.4 g/dL (12.0-15.0); Lymphocytes % 26.5 % (15.3-44.8); MCH 29.7 pg (27.0-35.0); MCHC 33.4 g/dL (32.0-36.0); MCV 88.9 fL (80-100); MPV 8.1 fL (7.6-11.3); Monocytes % 12.4 % (3.3-12.3); Platelets 263 thou/uL (152-406); Red Cell Distribution Width 15.2 % (12.1-15.2)
[2024-06-09 19:02] LABS: Anion Gap 10.7 mEq/L (5.0-15.0); Potassium 3.7 mEq/L (3.5-5.1)
--- NOTE | 2024-06-09 20:05 | EDPHYS ---
Physician Documentation [facility] Name: Radha Cardenas Age: 78 yrs Sex: Female : 1945 Arrival Date: 06/09/2024 Time: 17:15 Bed 18 Private MD: ED Physician Matthieu Virk HPI: 06/09 22:43 This 78 yrs old Female presents to ER via Ambulatory with complaints of Weakness, kb Decreased Appetite, Fever, Cough, Congestion. 22:44 Pt is a 78 year old female who presents for cough, weakness, chills, low grade fever, kb fatigue, bodyaches and diarrhea that started about 3 days ago. States she came here on the first day of symptoms and was diagnosed with bronchitis. States her son has flu a so she thought that was what she had. Comes back today because she isn't better yet. States she would like a neb treatment and some IV fluids. . Historical: - Allergies: 17:38 No Known Allergies; jb4 - PMHx: 17:38 degenerative disk disease; Hypertension; Hyperlipidemia; Depression; GERD; Anemia; jb4 Osteoporosis; - Immunization history:: Adult Immunizations up to date. - Infectious Disease History:: Denies. - Social history:: Smoking status: Patient denies any tobacco usage or history of. ROS: 19:48 Constitutional: As per HPI kb Exam: 19:48 Constitutional: This is a well developed, well nourished patient who is awake, alert, kb and in no acute distress. Head/Face: Normocephalic, atraumatic. ENT: Moist Mucous membranes Cardiovascular: Regular rate Abdomen/GI: Soft, non-tender. No distention Skin: Warm, dry with normal turgor. Normal color. MS/ Extremity: Pulses equal, no cyanosis. Neurovascular intact. Full, normal range of motion. Neuro: Awake and alert, GCS 15, oriented to person, place, time, and situation. 19:48 Respiratory: the patient does not display signs of respiratory distress, Respirations: normal, Breath sounds: wheezing: expiratory that is mild, is scattered, Vital Signs: 17:35 BP 126 / 79; Pulse 81; Resp 16; Temp 97.1(O); Pulse Ox 97% on R/A; Weight 63.5 kg; jb4 Height 5 ft. 3 in. ; 18:15 BP 146 / 76; Pulse 77; Resp 18; Pulse Ox 95% ; db 18:30 BP 146 / 77; Pulse 75; Resp 18; Pulse Ox 100% on R/A; db 20:00 BP 145 / 61; Pulse 73; Resp 16; Pulse Ox 96% on R/A; jb4 17:35 Body Mass Index 24.80 (63.50 kg, 160.02 cm) jb4 MDM: 17:34 Medical Screening Exam initiated 19:48 Data reviewed: vital signs, nurses notes. Historians other than the Patient: Daughter/Son: daughter. 22:43 I considered the following discharge prescriptions or medication management in the emergency department I discussed and recommended Over The Counter medications, Antibiotics: At this time antibiotics are not recommended, Antivirals: At this time, antivirals are not recommended. Counseling: I had a detailed discussion with the patient and/or guardian regarding the historical points, exam findings, and any diagnostic results supporting the discharge/admit diagnosis, lab results, radiology results, the need for outpatient follow up, a family practitioner, to return to the emergency department if symptoms worsen or persist or if there are any questions or concerns that arise at home. Response to treatment: the patient's symptoms have markedly improved after treatment. 06/09 18:10 Order name: CBC with Diff; Complete Time: 18:37 kb 06/09 18:10 Order name: Basic Metabolic Panel; Complete Time: 19:06 kb 06/09 18:10 Order name: Flu; Complete Time: 18:45 kb 06/09 18:10 Order name: Chest Single View XRAY; Complete Time: 18:37 kb 06/09 18:10 Order name: IV Start; Complete Time: 18:29 kb Administered Medications: 18:17 Drug: NS 0.9% IV 1000 ml IV at 1000 ml once; to be given as a bolus over 60 minutes db Route: IV; Rate: 1000 ml; Site: right wrist; 18:30 Drug: Albuterol Inhalation 2.5 mg Inhalation once Route: Inhalation; db 18:30 Drug: Ipratropium Inhalation Aerosol 0.5 mg Inhalation once Route: Inhalation; db Disposition Summary: 06/09/24 20:04 Discharge Ordered Notes: Location: Home Condition: Stable Diagnosis - Influenza due to identified novel influenza A virus kb Followup: kb - With: Emergency Department - When: As needed - Reason: Worsening of condition Followup: kb - With: Private Physician - When: 2 - 3 days - Reason: Recheck today's complaints, Continuance of care, Re-evaluation by your physician Discharge Instructions: - Discharge Summary Sheet kb - Influenza, Adult, [id number] kb Forms: - Medication Reconciliation Form kb - Antibiotic Education kb - Prescription Opioid Use kb - Patient Portal Instructions kb - Leadership Thank You Letter kb Addendum: 06/12/2024 22:49 Co-signature as Attending Physician, Matthieu Virk MD I reviewed the patient's care r n provided by the Advanced Practice Provider and agree with the diagnosis and treatment plan. Signatures: Dispatcher [employer] EDMercy Nettles, CERTIFIED ADDICTION COUNSELOR-C CERTIFIED ADDICTION COUNSELOR-Ckb Matthieu Virk MD MD rn Bryson, James RN RN jb4 Cassidy Barron RN RN db
--- NOTE | 2024-06-09 20:05 | ER ---
Nurse's Notes [facility] Name: Radha Cardenas Age: 78 yrs Sex: Female : 1945 Arrival Date: 06/09/2024 Time: 17:15 Bed 18 Private MD: Diagnosis: Influenza due to identified novel influenza A virus Presentation: 06/09 17:35 Chief complaint: Patient states: I was here a few days ago with bronchitis and I am not jb4 feeling much better and was hoping to get some IV fluids. I just feel weak. I am also having diarrhea. Coronavirus screen: At this time, the client does not indicate any symptoms associated with coronavirus-19. Ebola Screen: No symptoms or risks identified at this time. Initial Sepsis Screen: Does the patient meet any 2 criteria? No. Patient's initial sepsis screen is negative. Does the patient have a suspected source of infection? No. Patient's initial sepsis screen is negative. Risk Assessment: Do you want to hurt yourself or someone else? Patient reports no desire to harm self or others. Onset of symptoms was June 05, 2024. Transition of care: patient was not received from another setting of care. 17:35 Method Of Arrival: Ambulatory jb4 17:35 Acuity: SLOAN 3 jb4 Historical: - Allergies: 17:38 No Known Allergies; jb4 - PMHx: 17:38 degenerative disk disease; Hypertension; Hyperlipidemia; Depression; GERD; Anemia; jb4 Osteoporosis; - Immunization history:: Adult Immunizations up to date. - Infectious Disease History:: Denies. - Social history:: Smoking status: Patient denies any tobacco usage or history of. Screenin:50 [facility] ED Fall Risk Assessment (Adult) History of falling in the last 3 months, db including since admission No falls in past 3 months (0 pts) Confusion or Disorientation No (0 pts) Intoxicated or Sedated No (0 pts) Impaired Gait No (0 pts) Mobility Assist Device Used No (0 pt) Altered Elimination No (0 pt) Score/Fall Risk Level 0 - 2 = Low Risk Oriented to surroundings, Maintained a safe environment. Abuse screen: Denies threats or abuse. Denies injuries from another. Nutritional screening: No deficits noted. Tuberculosis screening: No symptoms or risk factors identified. Assessment: 17:58 Reassessment: Patient appears in no apparent distress at this time. Patient and/or db family updated on plan of care and expected duration. Pain level reassessed. Patient is alert, oriented x 3, equal unlabored respirations, skin warm/dry/pink. General: Appears in no apparent distress. comfortable, Behavior is calm, cooperative. Pain: Denies pain. Neuro: Level of Consciousness is awake, alert, obeys commands, Oriented to person, place, time, situation. Cardiovascular: No deficits noted. Respiratory: Airway is patent Respiratory effort is even, unlabored, Respiratory pattern is regular, symmetrical. GI: No deficits noted. No signs and/or symptoms were reported involving the gastrointestinal system. : No deficits noted. No signs and/or symptoms were reported regarding the genitourinary system. 18:43 Reassessment: Patient appears in no apparent distress at this time. Patient and/or db family updated on plan of care and expected duration. Pain level reassessed. Patient is alert, oriented x 3, equal unlabored respirations, skin warm/dry/pink. 19:14 Reassessment: Patient appears in no apparent distress at this time. Patient and/or jb4 family updated on plan of care and expected duration. Pain level reassessed. Patient is alert, oriented x 3, equal unlabored respirations, skin warm/dry/pink. Provider at the bedside explaining plan of care. 20:19 Reassessment: Patient appears in no apparent distress at this time. Patient and/or jb4 family updated on plan of care and expected duration. Pain level reassessed. Patient is alert, oriented x 3, equal unlabored respirations, skin warm/dry/pink. Vital Signs: 17:35 BP 126 / 79; Pulse 81; Resp 16; Temp 97.1(O); Pulse Ox 97% on R/A; Weight 63.5 kg; jb4 Height 5 ft. 3 in. ; 18:15 BP 146 / 76; Pulse 77; Resp 18; Pulse Ox 95% ; db 18:30 BP 146 / 77; Pulse 75; Resp 18; Pulse Ox 100% on R/A; db 20:00 BP 145 / 61; Pulse 73; Resp 16; Pulse Ox 96% on R/A; jb4 17:35 Body Mass Index 24.80 (63.50 kg, 160.02 cm) [facility] ED Course: 17:18 Patient arrived in ED. mr 17:34 [facility]C [facility]. kb 17:34 Matthieu Virk MD is Attending Physician. kb 17:38 Triage completed. jb4 17:38 Arm band placed on right wrist. jb4 17:50 Patient has correct armband on for positive identification. Bed in low position. Call db light in reach. Side rails up X 1. Pulse ox on. NIBP on. Warm blanket given. Pillow given. 17:57 Cassidy Barron, RN is Primary Nurse. db 18:17 No provider procedures requiring assistance completed. Initial lab(s) drawn, by la, db sent to lab. Inserted saline lock: 22 gauge in right wrist, using aseptic technique. Blood collected. Flushed with 10 mL NS. 18:30 Chest Single View XRAY In Process Unspecified. EDMS 19:13 Marco Valdez, RN is Primary Nurse. jb4 20:21 Provided Education on: discharge instructions.. jb4 20:21 IV discontinued, intact, bleeding controlled, No redness/swelling at site. Pressure jb4 dressing applied. Administered Medications: 18:17 Drug: NS 0.9% IV 1000 ml IV at 1000 ml once; to be given as a bolus over 60 minutes db Route: IV; Rate: 1000 ml; Site: right wrist; 18:30 Drug: Albuterol Inhalation 2.5 mg Inhalation once Route: Inhalation; db 18:30 Drug: Ipratropium Inhalation Aerosol 0.5 mg Inhalation once Route: Inhalation; db Medication: 17:50 VIS not applicable for this client. db Outcome: 20:04 Discharge ordered by . kb 20:21 Discharged to home ambulatory, jb4 20:21 Condition: stable 20:21 Discharge instructions given to patient, Instructed on discharge instructions, follow up and referral plans. Demonstrated understanding of instructions, follow-up care, 20:22 Patient left the ED. jb4 Signatures: Dispatcher [employer] EDCT [facility] Cam[facility]illo FNP-C POINTER MACHINE OPERATOR-Ckb June Rowan, Reg Reg Marco Valdez, RN RN jb4 Cassidy Barron, RN RN db Corrections: (The following items were deleted from the chart) 18:37 18:30 NS 0.9% IV 1000 ml IV at 1000 ml in right antecubital db db
[2024-06-10 04:43] VITALS: TEMP 97.1
[2024-06-10 05:00] VITALS: BP 145/61; O2SAT 96
== END 2024-06-09 20:22 | disposition home or self-care (01) ==
LOC: ER 17:15
DX: J10.1 Influenza due to other identified influenza virus with other respiratory manifestations (principal)
CPT/HCPCS: 85025; 80048; 36415; 87804 ×2; 71045; 99285; J7613; J7644; J7030

== ENCOUNTER 2024-06-24 15:36 | Emergency (ER) | payer OTHER ==
[2024-06-24 16:25] LABS: Absolute Eosinophils 0.2 K/uL (0-0.5); Absolute Lymphocytes (CBC) 2.3 K/uL (0.7-4.9); Absolute Monocytes 0.8 K/uL (0.1-1.3); Absolute Neutrophil 4.8 K/uL (1.8-8.0); Basophils % 0.4 % (0-1.3); Hematocrit 37.1 % (36.0-45.0); Hemoglobin 12.1 g/dL (12.0-15.0); Lymphocytes % 28.2 % (15.3-44.8); MCH 29.2 pg (27.0-35.0); MCHC 32.7 g/dL (32.0-36.0); MCV 89.4 fL (80-100); MPV 7.5 fL (7.6-11.3); Monocytes % 9.6 % (3.3-12.3); Neutrophils % 58.8 % (41.7-73.7); Nucleated Red Blood Cells % 0.1 % (0-0); Platelets 347 thou/uL (152-406); RBC Red Blood Cell Count 4.15 M/uL (3.86-4.86); Red Cell Distribution Width 14.9 % (12.1-15.2)
[2024-06-24 17:15] LABS: Albumin 3.4 g/dL (3.4-5.0); Albumin/Globulin Ratio 0.9 (1.1-1.8); Bilirubin Total 0.2 mg/dL (0.2-1.0); Globulin 3.9 g/dL (2.3-3.5); Protein, Total 7.3 g/dL (6.4-8.2)
--- NOTE | 2024-06-24 19:02 | RAD REPORT ---
EXAMINATION: CT Abdomen Pelvis W Contrast CLINICAL INDICATION: Female, 79 years old. ABD PAIN TECHNIQUE: CT abdomen and pelvis was performed, after the administration of IV contrast, as per depar tment protocol. Axial, sagittal and coronal reconstructions were obtained. One or more of the following dose reduction techniques were used: Automated exposure control, adjustment of the mA and k V according to patient size, and iterative reconstruction. Unless otherwise specified, incidental findings do not require dedicated imaging follow-up. COMPARISON: 03/08/2023 CT abdomen and pelvis. 11/04/2023 CT chest FINDINGS: LOWER CHEST: The visualized lung bases are clear apart from bibasilar platelike atelectatic changes. Collapsed left breast implant capsule again seen. LIVER: Normal in size and contour. No focal lesion. BILIARY SYSTEM: Status post cholecystectomy. SPLEEN: Normal size. No focal lesion. PANCREAS: No mass, ductal dilation, or deshawn-pancreatic fluid. ADRENALS: Normal; no mass. KIDNEYS: Normal size and contour. No hydronephrosis. URINARY BLADDER: Unremarkable. GASTROINTESTINAL TRACT: Moderate hiatal hernia again seen, with surgical clips, may relate to prior h ernia repair fundoplication. Appearance is stable. No evidence of free air, significant intra-abdominal free fluid, bowel obstruction or abscess. Distal colonic diverticulosis. APPENDIX: Appendix surgically absent. LYMPH NODES: No lymphadenopathy. MUSCULOSKELETAL: No acute or suspicious osseous abnormality. ADDITIONAL FINDINGS: Streak artifact resulting from right total hip arthroplasty hardware limits eval uation. IMPRESSION: No acute or concerning abnormalities seen in the abdomen or pelvis. Stable findings as above, including distal colonic diverticulosis, and moderate sliding hiatal hernia .
--- NOTE | 2024-06-24 19:05 | EDPHYS ---
Physician Documentation [facility] Name: Radha Cardenas Age: 79 yrs Sex: Female : 1945 Arrival Date: 06/24/2024 Time: 15:36 Bed 18 Private MD: ED Physician Matthieu Virk HPI: 06/24 16:23 This 79 yrs old Female presents to ER via Ambulatory with complaints of hernia pain. ms3 16:23 79 year old female presents with abdominal pain located near the site of a previous ms3 hernia surgery performed by Dr. Metz six months ago. Over the past two days, the patient experienced increasing pain in this area, which was described as a five or six on a pain scale of one to ten when at its worst, patient denies pain during HPI. The patient reported past occurrences of nausea and vomiting, but these were associated with esophageal issues and not present in the past two days. The patient also reported having regular bowel movements and no recent episodes of diarrhea, fever, or chills. . Historical: - Allergies: 15:56 No Known Allergies; tm6 - PMHx: 15:56 Anemia; degenerative disk disease; Depression; GERD; Hyperlipidemia; Hypertension; tm6 Osteoporosis; chronic kidney disease (Osteoporosis); - PSHx: 15:57 Appendectomy; Cholecystectomy; right hip replacement; left knee replacement; umbilical tm6 hernia repair; - Immunization history:: Client reports receiving the 2nd dose of the Covid vaccine. - Infectious Disease History:: Denies. - Social history:: Smoking status: Patient reports the use of cigarette tobacco products, denies chronic smoking, but will smoke occasionally, Patient/guardian denies using alcohol. ROS: 16:23 Constitutional: Negative for fever, and chills. Cardiovascular: Negative for chest ms3 pain, and palpitations. Respiratory: Negative for shortness of breath, cough, wheezing, and pleuritic chest pain, 16:23 MS/Extremity: Negative for injury and deformity, Skin: Negative for injury, rash, and discoloration, 16:23 Abdomen/GI: Positive for abdominal pain, Exam: 16:23 Constitutional: This is a well developed, well nourished patient who is awake, alert, ms3 and in no acute distress. Chest/axilla: Normal chest wall appearance and motion. Nontender with no deformity. Cardiovascular: Regular rate and rhythm with a normal S1 and S2. No gallops, murmurs, or rubs. Normal PMI, no JVD. No pulse deficits. Respiratory: Lungs have equal breath sounds bilaterally, clear to auscultation and percussion. No rales, rhonchi or wheezes noted. No increased work of breathing, no retractions or nasal flaring. 16:23 Skin: Warm, dry with normal turgor. Normal color with no rashes, no lesions, and no evidence of cellulitis. MS/ Extremity: Pulses equal, no cyanosis. Neurovascular intact. Full, normal range of motion. 16:23 Abdomen/GI: Inspection: scar(s), are noted in the midline, Bowel sounds: normal, Palpation: mild abdominal tenderness, in the umbilical area, Vital Signs: 15:54 BP 184 / 78; Pulse 67; Resp 19; Temp 97(TE); Pulse Ox 98% on R/A; MAP 104 mmHg; Weight tm6 63.5 kg; Height 5 ft. 3 in. ; Pain 6/10; 17:00 BP 150 / 68; Pulse 67; Resp 16; Pulse Ox 98% on R/A; db 18:00 BP 170 / 69; Pulse 67; Resp 18; Pulse Ox 99% on R/A; db 15:54 Body Mass Index 24.80 (63.50 kg, 160.02 cm) tm6 15:54 Pain Scale: Adult tm6 MDM: 16:07 Medical Screening Exam initiated ms3 16:23 Differential diagnosis: bowel obstruction, non-specific abd pain, Hernia vs post op ms3 pain. 18:00 Transition of care: After a detail discussion of the patient's case, care is ms3 transferred to Matthieu Virk MD. 19:04 Data reviewed: vital signs, nurses notes, lab test result(s), radiologic studies, CT rn scan, and as a result, I will discharge patient. Counseling: I had a detailed discussion with the patient and/or guardian regarding the historical points, exam findings, and any diagnostic results supporting the discharge/admit diagnosis, lab results, radiology results, the need for outpatient follow up, to return to the emergency department if symptoms worsen or persist or if there are any questions or concerns that arise at home. ED course: Signed out to me by Dr. Villatoro, plan was to get CT abdomen pelvis and discharge if negative. CT abdomen pelvis without acute findings, will discharge per Dr. Villatoro plan with follow-up with PCP and Dr. Metz. No acute surgical cause of pain found. I have personally reviewed all of the results, including but not limited to blood tests and imaging deemed necessary to safely discharge this patient at this time. All results given to and printed out for patient. I personally went over all the results with the patient and answered all questions. Patient will follow-up with PCP and or specialist as discussed. Return precautions given and understood.. 06/24 16:02 Order name: CBC with Diff; Complete Time: 16:31 ms3 06/24 16:02 Order name: CMP; Complete Time: 17:35 ms3 06/24 16:02 Order name: CT Abd/Pelvis - IV Contrast Only; Complete Time: 19:03 ms3 06/24 16:02 Order name: IV Saline Lock; Complete Time: 16:27 ms3 06/24 16:02 Order name: Labs collected and sent; Complete Time: 16:27 ms3 Administered Medications: No medications were administered Disposition Summary: 06/24/24 19:04 Discharge Ordered Notes: Location: Home rn Condition: Stable rn Problem: new rn Symptoms: have improved rn Diagnosis - Abdominal pain, Generalized rn - Essential (primary) hypertension rn - Chronic kidney disease, unspecified rn Followup: ms3 - With: Chi Metz MD - When: 2 - 3 days - Reason: Recheck today's complaints Discharge Instructions: - Discharge Summary Sheet ms3 - Abdominal Pain, Adult ms3 - Chronic Kidney Disease, Adult, [id number] ms3 - DASH Eating Plan ms3 Forms: - Medication Reconciliation Form rn - Antibiotic ip technology transactions attorney - Prescription Opioid Use rn - Patient Portal Instructions rn - Leadership Thank You Letter rn Signatures: Dispatcher [employer] Matthieu De León MD MD rn Sims, Marcus, DO DO ms3 Olena Steele RN RN tm6
--- NOTE | 2024-06-24 19:05 | ER ---
Nurse's Notes [facility] Name: Radha Cardenas Age: 79 yrs Sex: Female : 1945 Arrival Date: 06/24/2024 Time: 15:36 Bed 18 Private MD: Diagnosis: Abdominal pain, Generalized;Essential (primary) hypertension;Chronic kidney disease, unspecified Presentation: 06/24 15:54 Chief complaint: Patient states: I had umbilical hernia surgery with Dr. Metz about tm6 6 months ago. The last few days I've started to have a lot of pain in the area and I'm concerned about it. I also was diagnosed with the flu a couple of weeks ago and I still have a cough. Coronavirus screen: Client denies travel out of the [place] in the last 14 days. Ebola Screen: Patient negative for fever greater than or equal to 101.5 degrees Fahrenheit, and additional compatible Ebola Virus Disease symptoms Patient denies exposure to infectious person. Patient denies travel to an Ebola-affected area in the 21 days before illness onset. No symptoms or risks identified at this time. Initial Sepsis Screen: Does the patient meet any 2 criteria? No. Patient's initial sepsis screen is negative. Does the patient have a suspected source of infection? No. Patient's initial sepsis screen is negative. Risk Assessment: Do you want to hurt yourself or someone else? Patient reports no desire to harm self or others. Onset of symptoms was June 22, 2024. Care prior to arrival:. 15:54 Method Of Arrival: Ambulatory tm6 15:54 Acuity: SLOAN 3 tm6 Triage Assessment: 15:57 General: Appears in no apparent distress. Behavior is calm, cooperative. Pain: tm6 Complains of pain in umbilical area Pain currently is 6 out of 10 on a pain scale. EENT: No signs and/or symptoms were reported regarding the EENT system. Neuro: Level of Consciousness is awake, alert, obeys commands, Oriented to person, place, time, situation. Cardiovascular: Patient's skin is warm and dry. Respiratory: Reports cough that is since a few weeks ago Airway is patent Respiratory effort is even, unlabored, Respiratory pattern is regular, symmetrical. GI: Abdomen is flat, non-distended, Reports Pain is 6 out of 10 on a pain scale. : No signs and/or symptoms were reported regarding the genitourinary system. Derm: No signs and/or symptoms reported regarding the dermatologic system. Musculoskeletal: No signs and/or symptoms reported regarding the musculoskeletal system. Historical: - Allergies: 15:56 No Known Allergies; tm6 - PMHx: 15:56 Anemia; degenerative disk disease; Depression; GERD; Hyperlipidemia; Hypertension; tm6 Osteoporosis; chronic kidney disease (Osteoporosis); - PSHx: 15:57 Appendectomy; Cholecystectomy; right hip replacement; left knee replacement; umbilical tm6 hernia repair; - Immunization history:: Client reports receiving the 2nd dose of the Covid vaccine. - Infectious Disease History:: Denies. - Social history:: Smoking status: Patient reports the use of cigarette tobacco products, denies chronic smoking, but will smoke occasionally, Patient/guardian denies using alcohol. Screenin:34 [facility] ED Fall Risk Assessment (Adult) History of falling in the last 3 months, db including since admission No falls in past 3 months (0 pts) Confusion or Disorientation No (0 pts) Intoxicated or Sedated No (0 pts) Impaired Gait No (0 pts) Mobility Assist Device Used No (0 pt) Altered Elimination No (0 pt) Score/Fall Risk Level 0 - 2 = Low Risk Oriented to surroundings, Maintained a safe environment. Abuse screen: Denies threats or abuse. Denies injuries from another. Nutritional screening: No deficits noted. Tuberculosis screening: No symptoms or risk factors identified. Assessment: 16:27 Reassessment: Patient appears in no apparent distress at this time. Patient and/or db family updated on plan of care and expected duration. Pain level reassessed. Patient is alert, oriented x 3, equal unlabored respirations, skin warm/dry/pink. General: Appears in no apparent distress. comfortable, Behavior is calm, cooperative, appropriate for age. Pain: Complains of pain in abdomen and umbilical area. Neuro: Level of Consciousness is awake, alert, obeys commands, Oriented to person, place, time, situation. Respiratory: Airway is patent Respiratory effort is even, unlabored, Respiratory pattern is regular, symmetrical. 18:34 Reassessment: Patient appears in no apparent distress at this time. Patient and/or db family updated on plan of care and expected duration. Pain level reassessed. Patient is alert, oriented x 3, equal unlabored respirations, skin warm/dry/pink. 19:22 Reassessment: Patient appears in no apparent distress at this time. Patient and/or jb4 family updated on plan of care and expected duration. Pain level reassessed. Patient is alert, oriented x 3, equal unlabored respirations, skin warm/dry/pink. Vital Signs: 15:54 BP 184 / 78; Pulse 67; Resp 19; Temp 97(TE); Pulse Ox 98% on R/A; MAP 104 mmHg; Weight tm6 63.5 kg; Height 5 ft. 3 in. ; Pain 6/10; 17:00 BP 150 / 68; Pulse 67; Resp 16; Pulse Ox 98% on R/A; db 18:00 BP 170 / 69; Pulse 67; Resp 18; Pulse Ox 99% on R/A; db 15:54 Body Mass Index 24.80 (63.50 kg, 160.02 cm) tm6 15:54 Pain Scale: Adult tm6 ED Course: 15:38 Patient arrived in ED. im 15:54 Zachariah Villatoro DO is Attending Physician. ms3 15:56 Triage completed. tm6 15:57 Arm band placed on right wrist. tm6 16:04 Cassidy Barron, SALVATORE is Primary Nurse. db 16:15 Initial lab(s) drawn, by me, sent to lab. Inserted saline lock: 22 gauge in right db wrist, using aseptic technique. Blood collected. Flushed with 10 mL NS. 17:00 Warm blanket given. Pillow given. db 17:[address] db 17:44 CT Abd/Pelvis - IV Contrast Only In Process Unspecified. EDMS 18:01 Attending Physician role handed off by Zachariah Villatoro DO ms3 18:01 Matthieu Virk MD is Attending Physician. ms3 18:35 Patient has correct armband on for positive identification. Bed in low position. Call db light in reach. Side rails up X 1. Pulse ox on. NIBP on. 19:04 Chi Metz MD is Referral Physician. rn 19:22 Provided Education on: discharge instructions.. jb4 19:22 No provider procedures requiring assistance completed. IV discontinued, intact, jb4 bleeding controlled, No redness/swelling at site. Pressure dressing applied. Administered Medications: No medications were administered Medication: 18:36 VIS not applicable for this client. db Outcome: 19:04 Discharge ordered by . rn 19:22 Discharged to home ambulatory, jb4 19:22 Condition: stable 19:22 Discharge instructions given to patient, Instructed on discharge instructions, follow up and referral plans. Demonstrated understanding of instructions, follow-up care, 19:23 Patient left the ED. jb4 Signatures: Dispatcher [employer] EDMS Matthieu Virk MD MD rn Bryson, James RN RN jb4 Zachariah Villatoro DO DO ms3 Cassidy Barron, SALVATORE RN Lucille Waite Tawney, RN RN tm6
[2024-06-24 19:28] VITALS: TEMP 97
[2024-06-24 19:30] VITALS: BP 170/69; O2SAT 99
== END 2024-06-24 19:23 | disposition home or self-care (01) ==
LOC: ER 15:36
DX: R10.84 Generalized abdominal pain (principal); I12.9 Hypertensive chronic kidney disease with stage 1 through stage 4 chronic kidney disease, or unspecified chronic kidney disease; N18.9 Chronic kidney disease, unspecified; F17.210 Nicotine dependence, cigarettes, uncomplicated
CPT/HCPCS: 85025; 36415; 80053; 74177; 99284; Q9967